=== PATIENT | male | born 1930 | race Caucasian/White ===

== ENCOUNTER → 2018-01-28 | Outpatient (REF) | payer MEDICARE | LOC: M LAB REF 14:26 | DX: C44.1122 Basal cell carcinoma of skin of right lower eyelid, including canthus (principal) | CPT/HCPCS: 88305 ==

== ENCOUNTER 2018-03-07 06:04 | Day surgery (SDC) | payer MEDICARE ==
[~2018-03-07 06:04] MED LIST: LR 1,000 ML IV
[2018-03-07] MEDS ORDERED: PROPOFOL 200 MG/20 ML VIAL As Ordered (07:21)
[2018-03-07] MEDS ORDERED: fentaNYL 100 MCG/2 ML INJECTION (J3010) As Ordered (07:22)
[2018-03-07] MEDS ORDERED: MIDAZOLAM INJ 2 MG/2 ML VIAL (J2250) As Ordered (07:22)
[2018-03-07] MEDS ORDERED: ceFAZolin 1GM INJ (J0690 PER 500MG) As Ordered ×2 (07:29→07:30)
[2018-03-07] MEDS: ceFAZolin SOD 1 GM in D5W MINI-BAG PLUS 50 ML IV (07:41)
[2018-03-07] MEDS ORDERED: LIDOCAINE 2% INJ 100 MG/5 ML SDV (FOR ANES.) As Ordered (07:50)
[2018-03-07] MEDS: LIDOCAINE 2% W/EPIN INJ 20ML **PRES FREE As Ordered (07:52)
[2018-03-07] MEDS: BACITRACIN OINT 30GM As Ordered ×2 (08:17→08:18)
[2018-03-07] MEDS: LIDOCAINE W/EPINEPHRINE 1% 20ML VIAL As Ordered (08:17)
[2018-03-07] MEDS: LIDOCAINE 2% JELLY 30 ML As Ordered (08:17)
[2018-03-07] MEDS: CORTISPORIN OPHTH OINT 3.5 GM As Ordered (08:19)
[2018-03-07] MEDS ORDERED: ONDANSETRON 4MG/2ML VIAL (J2405) As Ordered (08:44)
[2018-03-07] MEDS ORDERED: dexameTHASONE 4 MG/ML 1ML VIAL (J1100) As Ordered (08:45)
[2018-03-07] MEDS ORDERED: ACETAMINOPHEN 325 MG TAB As Ordered (09:26)
[2018-03-07] MEDS: ACETAMINOPHEN TAB 650MG DOSE (2X325MG) PO (09:30)
== END 2018-03-07 09:53 | disposition home or self-care (01) ==
LOC: M SDC 06:04
DX: L87.2 Elastosis perforans serpiginosa (principal); K44.9 Diaphragmatic hernia without obstruction or gangrene; K21.9 Gastro-esophageal reflux disease without esophagitis; D64.9 Anemia, unspecified; M12.9 Arthropathy, unspecified; F41.9 Anxiety disorder, unspecified; F32.9 Major depressive disorder, single episode, unspecified; N40.0 Benign prostatic hyperplasia without lower urinary tract symptoms; Z79.899 Other long term (current) drug therapy; Z87.891 Personal history of nicotine dependence
CPT/HCPCS: 11441

== ENCOUNTER 2020-06-29 17:15 | Emergency (ER) | payer MEDICARE ==
[~2020-06-29] VITALS: Ht 172.7 cm; Wt 60.0 kg
[~2020-06-29 17:15] MED LIST changes: +AMBI12.52 PO; +CLAR10CA3 PO; +FERR325T82 PO; +FLOM0.4C39 PO; +LORTTAB5 PO; -LR 1,000 ML IV; +NEXI1CAP3 PO; +OMEP1CAP73 PO; +PRIL20CA9 PO; +TYLE325T5 PO
[2020-06-29] MEDS ORDERED: NS 1,000 ML IV ONE (17:45)
[2020-06-29 18:43] LABS: BASO % 0.1 % (0.0-1.0); EOS % 0.1 % (0.0-3.0); HEMATOCRIT 35.5 % (42.0-52.0); HEMOGLOBIN 11.2 g/dl (13.5-17.5); LYMPH % 9.3 % (24.0-44.0); MEAN CORPUSCULAR HEMOGLOBIN 26.5 pg (27.0-33.0); MEAN CORPUSCULAR HGB CONC 31.5 g/dl (32.0-36.5); MEAN CORPUSCULAR VOLUME 84.1 fl (80.0-96.0); MONO # 0.5 10^3/uL (0.0-0.8); MONO % 4.9 % (2.0-8.0); NEUTROPHILS # 8.8 10^3/uL (1.5-8.5); NEUTROPHILS % 85.2 % (36.0-66.0); PLATELET COUNT, AUTOMATED 324 10^3/uL (150-450); RED BLOOD COUNT 4.22 10^6/uL (4.30-6.10); WHITE BLOOD COUNT 10.3 10^3/uL (4.0-10.0)
[2020-06-29 19:05] LABS: ALBUMIN 2.8 GM/DL (3.2-5.2); BILIRUBIN,TOTAL 0.4 MG/DL (0.2-1.0); CALCIUM LEVEL 8.7 MG/DL (8.8-10.2); CREATININE FOR GFR 1.23 MG/DL (0.70-1.30); GLOMERULAR FILTRATION RATE 59.1 (>35); MAGNESIUM LEVEL 1.9 MG/DL (1.8-2.4); TOTAL PROTEIN 6.5 GM/DL (6.4-8.2)
[2020-06-29] MEDS ORDERED: NS 500 ML IV ONE (19:25)
[2020-06-29 20:30] VITALS: BP 144/78
== END 2020-06-29 21:14 | disposition home or self-care (01) ==
LOC: M ED 17:15
DX: R33.9 Retention of urine, unspecified (principal); R19.5 Other fecal abnormalities; K21.9 Gastro-esophageal reflux disease without esophagitis; N40.1 Benign prostatic hyperplasia with lower urinary tract symptoms; Z86.16 Personal history of COVID-19; Z87.891 Personal history of nicotine dependence; Z79.899 Other long term (current) drug therapy

== ENCOUNTER 2020-07-04 13:11 | Emergency (ER) | payer MEDICARE ==
[~2020-07-04] VITALS: Ht 170.2 cm; Wt 62.7 kg
--- NOTE | 2020-07-04 14:32 | REP ---
INDICATION: SOB. COMPARISON: None. TECHNIQUE: Upright AP and lateral chest. FINDINGS: There are no focal infiltrates. There are no pleural effusions. There are no masses or nodules. There is mild bilateral diffuse interstitial coarsening. In the absence of comparison studies this could be acute, chronic or combination. Cardiac size appears enlarged, however, this could be artifact from AP positioning and slight patient rotation. I suspect there is a large fixed hiatal hernia. Upon review of the abdomen/pelvis CT dated 04/21/2012 there was a large fixed hiatal hernia. IMPRESSION: Mild bilateral diffuse interstitial coarsening. In the absence of comparison studies this could be acute, chronic or combination. No focal infiltrates. No nodules or masses. Large fixed hiatal hernia. <Electronically signed by Pierce Arnold > 07/04/20 [id number]
[2020-07-04 14:57] LABS: BASO % 0.3 % (0.0-1.0); EOS % 0.1 % (0.0-3.0); HEMATOCRIT 34.9 % (42.0-52.0); HEMOGLOBIN 11.2 g/dl (13.5-17.5); LYMPH # 1.1 10^3/uL (1.5-5.0); LYMPH % 8.2 % (24.0-44.0); MEAN CORPUSCULAR HEMOGLOBIN 27.2 pg (27.0-33.0); MEAN CORPUSCULAR HGB CONC 32.1 g/dl (32.0-36.5); MEAN CORPUSCULAR VOLUME 84.7 fl (80.0-96.0); MONO # 0.8 10^3/uL (0.0-0.8); MONO % 5.8 % (2.0-8.0); NEUTROPHILS # 11.5 10^3/uL (1.5-8.5); NEUTROPHILS % 85.1 % (36.0-66.0); PLATELET COUNT, AUTOMATED 330 10^3/uL (150-450); RED BLOOD COUNT 4.12 10^6/uL (4.30-6.10); WHITE BLOOD COUNT 13.5 10^3/uL (4.0-10.0)
[2020-07-04] MEDS ORDERED: NS 500 ML IV ONE (15:05)
[2020-07-04 15:22] LABS: ALBUMIN 2.9 GM/DL (3.2-5.2); ALT/SGPT 13 U/L (12-78); BILIRUBIN,DIRECT 0.2 MG/DL (0.0-0.2); BILIRUBIN,TOTAL 0.5 MG/DL (0.2-1.0); CK-MB VALUE MASS 1.1 NG/ML (<3.6); CPK CREATINE PHOSPHOKINASE 57 U/L (39-308); MB/CK RELATIVE INDEX 1.93 (< OR =4); TOTAL PROTEIN 6.2 GM/DL (6.4-8.2); TROPONIN I < 0.02 NG/ML (< 0.10)
[2020-07-04 15:35] LABS: RSV AMPLIFICATION NEGATIVE (NEGATIVE)
[2020-07-04] MEDS ORDERED: ISOVUE-370 76% 100ML VIAL As Ordered ONE (15:37)
--- NOTE | 2020-07-04 16:31 | REP ---
INDICATION: abdominal pain. COMPARISON: 04/21/2012 TECHNIQUE: CT of the abdomen and pelvis with IV contrast, without bowel contrast FINDINGS: The right inguinal hernia containing a loop of bowel on the prior study is no longer present. The patient reportedly has had an interim herniorrhaphy. The visualized lower lung hansen are unremarkable except for a large fixed hiatal hernia. This is unchanged. The hepatic parenchyma, gallbladder, pancreas and spleen are normal size and unremarkable. The adrenals are unremarkable. There is a 4.8 cm right renal cyst. This measures 3.3 cm previously. The left kidney is unremarkable. There is no hydronephrosis on the right or the left. The abdominal aorta is unremarkable. There is no periaortic adenopathy or mass. There is no bowel distention or obstruction. The previous small bowel obstruction is no longer present. Is no ascites. The mesentery is unremarkable. Pelvis: The appendix is unremarkable. The prostate is significantly enlarged. There is a catheter traversing the prostate terminating in the bladder. The distal tip of the catheter is immediately against the bladder wall superolaterally on the left and has questionably perforated versus distorted the bladder wall. The bladder wall appears diffusely thickened. There is no free fluid in the pelvis. There are sigmoid colon and ascending colon diverticula. There is no CT evidence of acute diverticulitis. 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 IMPRESSION: Of there is a bladder catheter. The tip of the catheter (against the bladder wall superolaterally on the left and indents the wall. It does not appear to have perforated the bladder wall at this time. There is no free fluid in the pelvis. The prostate is significantly enlarged. There are diverticula in the ascending colon and sigmoid colon without CT evidence of diverticulitis. The previous right inguinal hernia has been repaired with herniorrhaphy. There is no bowel distention or obstruction. There is a right renal cyst that has increased in size. <Electronically signed by Pierce Arnold > 07/04/20 [id number]
--- NOTE | 2020-07-04 16:56 | ECGEPIP ---
[facility] - ED Test Date: 2020-07-04 Pat Name: STEVEN MALCOLM Department: Room: - Gender: Male Head Teller: PREM : 1930 Requested By: KADE Gonzalez PA-C Order Number: [id number] Reading MD: Roland Hall Measurements Intervals [place] Rate: 94 P: 76 OR: 198 QRS: 29 QRSD: 90 T: 16 QT: 390 QTc: 487 Interpretive Statements Normal sinus rhythm Nonspecific ST and T wave abnormality Baseline artifact Comparison tracing not on file Electronically Signed on 07-04-2020 16:55:37 EDT by Roland Hall
[2020-07-04] MEDS ORDERED: DITR5TAB PO (17:02)
[2020-07-04] MEDS ORDERED: CEPH500C PO (17:04)
[2020-07-04] MEDS ORDERED: CEPHALEXIN 500 MG CAP PO ONE (17:10)
[2020-07-04] MEDS ORDERED: oxyBUTYnin *DITROPAN XL* 5 MG TABCR PO SCH (17:25)
[2020-07-04 17:31] VITALS: BP 157/73
[2020-07-05] MEDS ORDERED: oxyBUTYnin *DITROPAN XL* 5 MG TABCR PO SCH (09:00)
== END 2020-07-04 17:52 | disposition home or self-care (01) ==
LOC: M ED 13:11
DX: N40.1 Benign prostatic hyperplasia with lower urinary tract symptoms (principal); T83.511A Infection and inflammatory reaction due to indwelling urethral catheter, initial encounter; R06.02 Shortness of breath; K62.5 Hemorrhage of anus and rectum; K44.9 Diaphragmatic hernia without obstruction or gangrene; F41.9 Anxiety disorder, unspecified; F32.9 Major depressive disorder, single episode, unspecified; Z87.19 Personal history of other diseases of the digestive system; Z85.828 Personal history of other malignant neoplasm of skin; Z79.899 Other long term (current) drug therapy
CPT/HCPCS: 71046; 74177; 80047; 80076; 81001; 82550; 82553; 84484; 85025; 87088; 87186; 87631; 93005; 96360; 99284; Q9967

== ENCOUNTER → 2020-07-31 | Outpatient (REF) | payer MEDICARE ==
[~2020-07-31] MED LIST changes: +CEPH500C PO; +DITR5TAB PO
[2020-07-31 17:08] LABS: APPEARANCE, URINE TURBID (CLEAR); BACTERIA, URINE AUTO 2+ (NEGATIVE); BILIRUBIN, URINE AUTO NEGATIVE (NEGATIVE); BLOOD, URINE BLOOD 1+ (NEGATIVE); COLOR, URINE YELLOW (YELLOW); GLUCOSE, URINE (UA) AUTO NEGATIVE (NEGATIVE); KETONE, URINE AUTO NEGATIVE (NEGATIVE); LEUKOCYTE ESTERASE, URINE AUTO 3+ (NEGATIVE); NITRITE, URINE AUTO NEGATIVE (NEGATIVE); PROTEIN, URINE AUTO 2+ mg/dL (NEGATIVE); RBC, URINE AUTO 2 /HPF (0-3); SPECIFIC GRAVITY URINE AUTO 1.013 (1.002-1.035); SQUAMOUS EPITHELIAL CELL UR AU 0 /HPF (0-6); UROBILINOGEN, URINE AUTO 0.2 mg/dL (0.0-2.0); WBC, URINE AUTO TNTC /HPF (0-3)
== END ==
LOC: M SFHCCLAY 12:24
PROVIDERS: ATTEND Nurse Practitioner Family
DX: R30.0 Dysuria (principal); N40.1 Benign prostatic hyperplasia with lower urinary tract symptoms
CPT/HCPCS: 51798; 81001; 84153; G0463

== ENCOUNTER → 2020-08-05 | Outpatient (REF) | payer MEDICARE | LOC: M SMT 15:41 | PROVIDERS: ATTEND Nurse Practitioner Family | DX: R30.0 Dysuria (principal) ==

== ENCOUNTER → 2020-11-06 | Outpatient (REF) | payer MEDICARE, OTHER ==
[~2020-11-06] MED LIST changes: +META28.32 PO; +PRES10CA2 PO; +TRAM50TA2 PO; +ZOLP10TA2 PO
[2020-11-08 23:08] LABS: PSA % FREE 18.3 % (.); PSA FREE 1.68 ng/mL; PSA TOTAL 9.2 ng/mL (0.0-4.0)
== END ==
LOC: M SFHCCLAY 13:20
PROVIDERS: ATTEND Nurse Practitioner Family
DX: R97.20 Elevated prostate specific antigen [PSA] (principal); N39.0 Urinary tract infection, site not specified
CPT/HCPCS: 51798; 84154; 87086; G0463

== ENCOUNTER → 2020-11-06 | Outpatient (REF) | payer MEDICARE, OTHER | LOC: M SMT 13:13 | PROVIDERS: ATTEND Nurse Practitioner Family | DX: N39.0 Urinary tract infection, site not specified (principal) ==

== ENCOUNTER 2020-11-19 10:47 | Inpatient (IN) | payer MEDICARE, OTHER ==
[~2020-11-19] VITALS: Ht 172.7 cm; Wt 48.9 kg
[~2020-11-19 10:47] MED LIST changes: -META28.32 PO; -PRES10CA2 PO; -TRAM50TA2 PO; -ZOLP10TA2 PO
[2020-11-19 11:58] LABS: HEMATOCRIT 31.8 % (42.0-52.0); HEMOGLOBIN 10.2 g/dl (13.5-17.5); MEAN CORPUSCULAR HEMOGLOBIN 24.6 pg (27.0-33.0); MEAN CORPUSCULAR HGB CONC 32.1 g/dl (32.0-36.5); MEAN CORPUSCULAR VOLUME 76.6 fl (80.0-96.0); PLATELET COUNT, AUTOMATED 415 10^3/uL (150-450); RED BLOOD COUNT 4.15 10^6/uL (4.30-6.10); WHITE BLOOD COUNT 22.9 10^3/uL (4.0-10.0)
[2020-11-19] MEDS ORDERED: ONDANSETRON 4MG/2ML VIAL IV ONE (12:05)
[2020-11-19 12:24] LABS: BLOOD UREA NITROGEN 30 MG/DL (7-18); CALCIUM LEVEL 8.3 MG/DL (8.8-10.2); CARBON DIOXIDE LEVEL 26 MEQ/L (21-32); CHLORIDE LEVEL 102 MEQ/L (98-107); CREATININE FOR GFR 1.08 MG/DL (0.70-1.30); GLOMERULAR FILTRATION RATE > 60.0 (>35); GLUCOSE, FASTING 113 MG/DL (70-100); LYMPHOCYTES 3 % (16-44); MONOCYTES 1 % (0-5); NEUTROPHILS 86 % (28-66); POTASSIUM SERUM 3.1 MEQ/L (3.5-5.1); SODIUM LEVEL 140 MEQ/L (136-145)
[2020-11-19 12:25] LABS: OVALOCYTES 1+; PLATELET CLUMPS SMALL AMT; PLATELET ESTIMATE NORMAL (NORMAL)
[2020-11-19] MEDS ORDERED: ISOVUE-370 76% 100ML VIAL As Ordered ONE (12:37)
--- NOTE | 2020-11-19 14:05 | REP ---
INDICATION: SBO. COMPARISON: 07/04/2020. TECHNIQUE: Portable AP chest with the patient upright, single view. FINDINGS: There is diffuse bilateral interstitial coarsening, similar to the prior study. However, I suspect a superimposed focal infiltrate inferiorly in the left lung as an interval change. There are no pleural effusions. Cardiac size is upper normal. There is a large fixed hiatal hernia containing bowel loops, artifactually accentuating cardiac size. There appear to be air-filled dilated bowel loops in the visualized upper abdomen. The bowel loops within the hiatal hernia also appear to be dilated. This could represent ileus or obstruction. IMPRESSION: Probable acute infiltrate inferiorly in the left lung. Chronic diffuse bilateral interstitial coarsening. Dilated air-filled bowel loops in the upper abdomen, possibly ileus or obstruction. Large fixed hiatal hernia, unchanged, artifactually accentuating cardiac size. The bowel loops within the hiatal hernia appear to be dilated. There are also dilated air-filled bowel loops in the visualized upper abdomen. This could represent ileus or obstruction. <Electronically signed by Pierce Arnold > 11/19/20 [id number]
[2020-11-19 14:11] LABS: RSV AMPLIFICATION NEGATIVE (NEGATIVE)
--- NOTE | 2020-11-19 14:35 | REP ---
INDICATION: SBO. COMPARISON: 07/04/2020 the latest prior TECHNIQUE: Standard helical technique after the intravenous administration of 100 cc Isovue 370 FINDINGS: There is significant respiratory motion artifact obscuring the lung base detail. Patchy airspace opacities cannot be ruled out. Since the last exam multiple dilated gas and fluid-filled small and large bowel loops have developed. A 4 by 4.5 cm sized masslike density has developed in the left lower quadrant between 2 large bowel loops. There is a large and in fact huge hiatal hernia which is occupied by both stomach and small bowel. The liver, spleen, gallbladder, pancreas, adrenal glands, and kidneys are unchanged. The abdominal aorta and para-aortic regions are unchanged. There is no evidence of free fluid or free air. There is massive prostatomegaly status quo. There is no significant change in the osseous structures. IMPRESSION: 1. There is a bowel obstruction which may be secondary to a colo colic intussusception. 2. Massive prostatomegaly. 3. Huge hiatal hernia. 4. Stable right renal cyst. 5. Limited evaluation of the lung bases as described above. <Electronically signed by Cristopher Henson > 11/19/20 [id number]
[2020-11-19] MEDS ORDERED: PIPERACILLIN/TAZOBACTAM SOD 3.375 GM in D5W MINI-BAG PLUS 50 ML IV ONE (15:00)
[2020-11-19] MEDS ORDERED: NS 1,000 ML IV ONE (15:35)
[2020-11-19] MEDS ORDERED: KCL 10MEQ/100ML SWI (KRUN) 10 MEQ in IV 1 EA IV ONE (16:00)
--- NOTE | 2020-11-19 16:01 | REP ---
INDICATION: NG TUBE PLACEMENT. COMPARISON: 11/19/2020, 12:06 p.m. TECHNIQUE: Single portable AP view of the chest was performed. FINDINGS: Reason for exam given is NG tube placement. No NG tube is visualized. EKG leads overlie the chest as on prior study. The heart and mediastinum are unchanged. The lung hansen are unchanged.Dilated small bowel loops are seen in the upper abdomen, extending into a hiatal hernia. IMPRESSION: Stable exam.No NG tube seen. <Electronically signed by Pierce Brown > 11/19/20 [id number]
--- NOTE | 2020-11-19 16:25 | HPEPDOC ---
[facility] Medical History & Physical Date of Admission Nov 19, 2020 Date of Service: Nov 19, 2020 History and Physical CHIEF COMPLAINT: abdominal pain for one year on and off HISTORY OF PRESENT ILLNESS: 89 y/o DNR DNI w h/o BPH, urine retention, constipation, diverticular disease, skin ca, colon surgery 04/2012, hernia repair 1999 has been evaluated by General Surgeon, Dr. Nicolas, as outpt and treated for constipation with metamucil and activia has been having on and off abd pain from the epigastrium to suprapubic area described as "jamming pain," usually abates, worsened last Wednesday when he had decreased appetite per his daughter. Yesterday morning, pt had nausea and vomiting with brownish material w/o fever or chills. He noticed increasing abdominal distention overnight with no flatus, and worsening generalized dull pain all over the abdomen. His Daughter calls every morning, and when he did not answer, she came over and found him in bed not feeling well. He also c/o congestion and has been taking sudafed for cough. If the abd pain did not get better, Dr. Nicolas was planning on doing a colonoscopy in January. In the ER, pt had a wbc 22, normal lactic acid 1.7, but ct abd/pelvis: ?intussussception. diverticulitis. Surgeon hydroponics grower, Dr. Barlow reviewed the CT with Dr. Nicolas, and will decide if pt needs to go to surgery or conservative mgt with NG tube, npo, iv zosyn, and ivfluids. ER MD, Dr. Lane has given the patient one dose of IV zosyn 3.375 mg x 1. PAST MEDICAL HISTORY/ SURGICAL HISTORY: BPH, urine retention, constipation, diverticular disease, skin ca, colon surgery 04/2012, hernia repair 1999 SOCIAL HISTORY: lives alone, dnr/dni. [facility] [phone] previous smoker <1/2 pack on and off, quit >50years ago. 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 REVIEW OF SYSTEMS: 10 pt ros negative aside from + findings on HPI HOME MEDICATIONS: Please see below. PHYSICAL EXAMINATION: VITAL SIGNS: see below GENERAL APPEARANCE: aaox 3 no distress cachectic HEENT: no jvd dry mm perrl no carotid bruit CARDIOVASCULAR:S1S2 RRR LUNGS:CTAB AEBE no w/r/r ABDOMEN: distended tympanitic hypoactive bowel sounds LLQ tender no rebound no guarding EXTREMITIES:no pitting edema, cyanosis, or clubbing LABORATORY DATA: See below. IMAGING: see below MICROBIOLOGY: Please see below. ASSESSMENT:89y/o M DNR/DNI admitted for abd pain: Diverticulitis: npo, ivf, iv zosyn x 7days renally dosed. hypoglycemic protocol general surgeon Dr. Barlow consulted. normal lactic acid sigmoidoscopy in am if no plans for or tonight. BPH / Urine retention hold meds for now while npo resume meds once po intake resumed gottlieb cath check ua urine c&s constipation defer to surgery for bowel prep Diet: npo dvt prophylaxis: compression stockings activity: as tolerated Code status: DNR/DNI Vital Signs Vital Signs Date Time Temp Pulse Resp B/P (MAP) Pulse Ox O2 Delivery O2 Flow Rate FiO2 11/19/20 11:00 98.6 90 22 127/67 Room Air Laboratory Data Labs 24H Laboratory Tests 2 11/19/20 11:32: Neutrophils (%) (Auto) , Nucleated Red Blood Cells % (auto) 0.0, Neutrophils 86H, Band Neutrophils 10, Lymphocytes (Manual) 3L, Monocytes (Manual) 1, Ovalocytes 1+, Platelet Estimate NORMAL, Clumped Platelets SMALL AMT, Anion Gap 12, Glomerular Filtration Rate > 60.0, Calcium Level 8.3L 11/19/20 13:28: Coronavirus (COVID-19)(PCR) NEGATIVE, Influenza Type A (RT-PCR) NEGATIVE, Infl uenza Type B (RT-PCR) NEGATIVE, Respiratory Syncytial Virus (PCR) NEGATIVE CBC/BMP Laboratory Tests 11/19/20 11:32 Home Medications Scheduled Ferrous Sulfate (Iron) 325 Mg Tab, 325 MG PO DAILY Omeprazole (Omeprazole) 20 Mg Cap, 20 MG PO DAILY Oxybutynin Chloride (Ditropan Xl) 5 Mg Tab.er.24, 1 TAB PO BID Tamsulosin HCl (Flomax) 0.4 Mg Cap, 0.4 MG PO DAILY Scheduled PRN Loratadine (Claritin) 10 Mg Cap, 10 MG PO PRN PRN for CONGESTION Allergies Coded Allergies: No Known Allergies (Unverified , 06/29/20) A-FIB/CHADSVASC A-FIB History Current/History of A-Fib/PAF?: No Current PO Anticoag Therapy: No Age/Risk Factor Scoring CHADSVASC: CHADSVASC Response (Comments) Value Age Risk Factor Age >/= 75 years old 2 Gender Risk Factor Male 0 Hx of CHF No 0 Hx of HTN No 0 Hx of Stroke/TIA/or VTE No 0 Hx of Diabetes No 0 Hx of Vascular Disease No 0 Total 2 Treatment Treatment ordered: NONE WILL REYNA MD Nov 19, 2020 16:25
[2020-11-19] MEDS ORDERED: GLUCAGON INJ 1MG VIAL SC PRN (16:30)
[2020-11-19] MEDS ORDERED: GLUCOSE 4GM CHEW TABLET PO PRN (16:30)
[2020-11-19] MEDS ORDERED: DEXTROSE 50% 50 ML SYRINGE IV PRN (16:30)
[2020-11-19] MEDS ORDERED: ONDANSETRON 4MG/2ML VIAL IV PRN (16:30)
[2020-11-19] MEDS ORDERED: TRAM50TA2 PO (16:43)
[2020-11-19] MEDS ORDERED: META28.32 PO (16:43)
[2020-11-19] MEDS ORDERED: ZOLP10TA2 PO (16:43)
[2020-11-19] MEDS ORDERED: PRES10CA2 PO (16:43)
[2020-11-19] MEDS ORDERED: HOME MED LIST COMPLETE! XX SCH (16:45)
[2020-11-19 18:37] VITALS: BP 132/63
--- NOTE | 2020-11-19 19:06 | REP ---
INDICATION: pOST ng TUBE PLACEMENT. COMPARISON: Portable chest performed at 3:37 p.m. earlier today. TECHNIQUE: Portable AP chest with the patient sitting post NG tube placement. FINDINGS: There is a nasogastric tube looped within bowel loops in the large fixed hiatal hernia with the distal tip extending just to and possibly slightly below the esophagogastric junction. Dilated bowel loops are again noted in the upper abdomen and in the hiatal hernia. Diffuse interstitial chronic coarsening of the lung hansen is again noted. Possible focal infiltrate inferiorly in the left lung again noted. IMPRESSION: NG tube as described. Other findings as described. <Electronically signed by Pierce Arnold > 11/19/20 [id number]
[2020-11-19 20:00] VITALS: BP 122/56
[2020-11-19] MEDS: PIPERACILLIN/TAZOBACTAM SOD 3.375 GM in D5W MINI-BAG PLUS 50 ML IV SCH (20:32)
[2020-11-19] MEDS: PANTOPRAZOLE 40MG VIAL (C9113 PER 1) IV SCH (20:33)
[2020-11-19] MEDS: KCL 40MEQ IN D5/0.45NS 1000ML 1,000 ML IV SCH (20:34)
[2020-11-19] MEDS ORDERED: LORazepam 2 MG/ML VIAL IV ONE (21:35)
--- NOTE | 2020-11-19 21:56 | ECGEPIP ---
[facility] - ED Test Date: 2020-11-19 Pat Name: STEVEN MALCOLM Department: Room: - Gender: Male Retail Sales Consultant: ancelmo : 1930 Requested By: Justice Ulloa Order Number: [id number] Reading MD: Justice Lane Measurements Intervals [place] Rate: 89 P: 51 HI: 162 QRS: 7 QRSD: 100 T: 257 QT: 448 QTc: 545 Interpretive Statements Sinus rhythm with premature atrial complexes ST & T wave abnormality, consider inferior ischemia ST & T wave abnormality, consider anterolateral ischemia Prolonged QT Electronically Signed on 11-19-2020 21:56:[address]
[2020-11-20] VITALS (7 sets, daily range): BP systolic 114–143; BP diastolic 56–72
[2020-11-20] MEDS: PIPERACILLIN/TAZOBACTAM SOD 3.375 GM in D5W MINI-BAG PLUS 50 ML IV SCH ×4 (02:50→21:47)
[2020-11-20 05:50] LABS: BASO % 0.1 % (0.0-1.0); EOS % 0.1 % (0.0-3.0); HEMATOCRIT 28.2 % (42.0-52.0); HEMOGLOBIN 8.9 g/dl (13.5-17.5); LYMPH # 1.2 10^3/uL (1.5-5.0); LYMPH % 12.1 % (24.0-44.0); MEAN CORPUSCULAR HEMOGLOBIN 24.5 pg (27.0-33.0); MEAN CORPUSCULAR HGB CONC 31.6 g/dl (32.0-36.5); MEAN CORPUSCULAR VOLUME 77.5 fl (80.0-96.0); MONO # 0.6 10^3/uL (0.0-0.8); MONO % 5.7 % (2.0-8.0); NEUTROPHILS # 8.3 10^3/uL (1.5-8.5); NEUTROPHILS % 81.6 % (36.0-66.0); PLATELET COUNT, AUTOMATED 341 10^3/uL (150-450); RED BLOOD COUNT 3.64 10^6/uL (4.30-6.10); WHITE BLOOD COUNT 10.2 10^3/uL (4.0-10.0)
[2020-11-20 06:10] LABS: BLOOD UREA NITROGEN 30 MG/DL (7-18); CALCIUM LEVEL 7.8 MG/DL (8.8-10.2); CARBON DIOXIDE LEVEL 27 MEQ/L (21-32); CHLORIDE LEVEL 108 MEQ/L (98-107); CREATININE FOR GFR 1.13 MG/DL (0.70-1.30); GLOMERULAR FILTRATION RATE > 60.0 (>35); GLUCOSE, FASTING 135 MG/DL (70-100); MAGNESIUM LEVEL 2.4 MG/DL (1.8-2.4); SODIUM LEVEL 142 MEQ/L (136-145)
[2020-11-20] MEDS: KCL 40MEQ IN D5/0.45NS 1000ML 1,000 ML IV SCH ×3 (06:15→23:09)
--- NOTE | 2020-11-20 08:02 | REP ---
INDICATION: cough. COMPARISON: Portable chest dated 11/19/2020. TECHNIQUE: Portable AP chest with the patient upright. FINDINGS: The nasogastric tube is unchanged in position. It is looped within bowel loops in the large fixed hiatal hernia with the tested tip just at or slightly beyond the esophagogastric junction. The dilated bowel loops in the upper abdomen and hiatal hernia identified previously have decreased in size. Chronic diffuse bilateral interstitial coarsening is unchanged. Questionable infiltrate inferiorly in the left lung is unchanged. There are new focal densities in the right mid lung, possibly small subsegmental infiltrates, as an interval change. IMPRESSION: Nasogastric tube, unchanged. The previous distended bowel loops have decreased in size. New subsegmental infiltrates in the right lung. Persisting infiltrate inferiorly in the left lung. Chronic diffuse bilateral interstitial coarsening. Large fixed hiatal hernia, unchanged. <Electronically signed by Pierce Arnold > 11/20/20 [id number]
--- NOTE | 2020-11-20 08:16 | REP ---
INDICATION: abd pain. COMPARISON: Abdomen/pelvis CT dated 11/19/2020. TECHNIQUE: Single AP view of the abdomen performed portably. FINDINGS: There is a large coffee moreno shaped loop of dilated bowel in the right lower quadrant possibly involving the ascending colon/terminal ileum compatible with volvulus/intussusception. There are dilated small bowel loops throughout the remainder of the abdomen compatible with bowel obstruction. There is opaque material filling the bladder as a consequence of the comparison CT with IV contrast. The bladder wall appears diffusely thickened. IMPRESSION: Small-bowel obstruction. Coffee moreno shaped loop of distended bowel in the right lower quadrant compatible with volvulus/intussusception likely involving the ascending colon or terminal ileum. Circumferential bladder wall thickening. <Electronically signed by Pierce Arnold > 11/20/20 [id number]
--- NOTE | 2020-11-20 08:31 | IPNPDOC ---
Text Note Date of Service The patient was seen on 11/20/20. NOTE General surgery. Dr. Barlow The patient is an 89-year-old male with history of chronic constipation, diverticular disease, right inguinal hernia repair 10/02, admitted to [facility] 11/19/2020 with diverticulitis. This morning, the patient states abdominal pain is improved, currently he is denying any abdominal pain. He had been reporting lower abdominal pain y esterday but states today he does not feel discomfort in that area. Had a bowel movement overnight. Reports some flatus. Denies nausea or vomiting. NG tube in place. T-max 100.0 at 2000 hrs. 11/19/2020. Afebrile this morning. Heart rate 79, respiratory rate 17, blood pressure 131/69, 96% 2 L nasal cannula Awake and alert resting in bed. No acute distress. NG tube in place Lungs with good air entry, no wheezing S1-S2 regular rate rhythm Abdomen still distended but the patient reports improvement, tympanic. No guarding or rebound. No tenderness with palpation this morning. WBC 10.2, this is decreased from 22.9 yesterday. Hemoglobin 8.9 Assessment/plan Diverticulitis. The patient is reviewed by Dr. Barlow this morning. Abdominal x-ray this morning reviewed. The patient reports 1 bowel movement overnight, 1 bowel movement as documented by nursing. The patient reports improvement in abdominal distention and abdominal pain. NG tube is still in place. 200 mL output documented. 450 mL since admission. Leukocytosis is significantly improved this morning. IV fluids as per hospitalist IV Zosyn Continue with n.p.o. for now, NG tube LIS. Continue to monitor. VS,Fishbone, I+O VS, Fishbone, I+O Laboratory Tests 11/19/20 11:32 11/20/20 05:31 Vital Signs Date Time Temp Pulse Resp B/P (MAP) Pulse Ox O2 Delivery O2 Flow Rate FiO2 11/20/20 07:39 96.5 63 19 143/70 (94) 89 Nasal Cannula 2.0 I&O- Last 24 Hours up to 6 AM 11/20/20 06:00 Intake Total 1500 ml Output Total 525 ml Balance 975 ml Anitha Prakash Nov 20, 2020 08:31
[2020-11-20] MEDS: PANTOPRAZOLE 40MG VIAL (C9113 PER 1) IV SCH ×2 (08:43→21:47)
[2020-11-20] MEDS: KCL 10MEQ/100ML SWI (KRUN) 10 MEQ in IV 1 EA IV SCH ×4 (08:43→12:31)
--- NOTE | 2020-11-20 09:23 | IPNPDOC ---
Date Seen The patient was seen on 11/20/20. Progress Note SUBJECTIVE: Patient had a bowel movement small amount of brownish material NG tube continues to have brownish discharge. Patient says his pain is 2 out of 10 on a pain scale Significantly improved. Nasogastric tube in place no fever chills overnight. Denies any nausea vomiting this morning. PHYSICAL EXAMINATION: VITAL SIGNS: see below GENERAL APPEARANCE: aaox 3 no distress cachectic no pallor or icterus HEENT: Edentulous dry mm perrl no carotid bruit NG tube CARDIOVASCULAR:S1S2 RRR no JVD LUNGS:CTAB AEBE no w/r/r ABDOMEN: Less distended no fluid wave hypoactive bowel sounds slight LLQ tender no rebound no guarding EXTREMITIES:no pitting edema, cyanosis, or clubbing LABORATORY DATA: See below. IMAGING: see below MICROBIOLOGY: Please see below. ASSESSMENT:89y/o M DNR/DNI admitted for abd pain: Questionable bowel obstruction/intussusception: Per general surgery, patient does not require any surgical intervention at this time. He has had a bowel movement this morning. Repeat abdominal x-ray shows bowel obstruction and intussusception/volvulus Defer to surgery for any procedures or surgical intervention Keep the patient n.p.o. continue IV fluids hypoglycemic protocol intravenous Zosyn day 2 Diverticulitis: npo, ivf, iv zosyn x 7days renally dosed. hypoglycemic protocol general surgeon Dr. Barlow consulted. normal lactic acid Possible sigmoidoscopy BPH / Urine retention hold meds for now while npo resume meds once po intake resumed gottlieb cath constipation defer to surgery for bowel prep if recommended Diet: npo dvt prophylaxis: compression stockings activity: as tolerated Code status: DNR/DNI VS, I&O, 24H, Fishbone Vital Signs/I&O Vital Signs Date Time Temp Pulse Resp B/P (MAP) Pulse Ox O2 Delivery O2 Flow Rate FiO2 11/20/20 07:39 96.5 63 19 143/70 (94) 89 Nasal Cannula 2.0 I&O- Last 24 Hours up to 6 AM 11/20/20 06:00 Intake Total 1500 ml Output Total 525 ml Balance 975 ml Laboratory Data 24H LABS Laboratory Tests 2 11/19/20 11:32: Neutrophils (%) (Auto) , Nucleated Red Blood Cells % (auto) 0.0, Neutrophils 86H, Band Neutrophils 10, Lymphocytes (Manual) 3L, Monocytes (Manual) 1, Ovalocy [place] 1+, Platelet Estimate NORMAL, Clumped Platelets SMALL AMT, Anion Gap 12, Glomerular Filtration Rate > 60.0, Calcium Level 8.3L 11/19/20 13:28: Coronavirus (COVID-19)(PCR) NEGATIVE, Influenza Type A (RT-PCR) NEGATIVE, Influenza Type B (RT-PCR) NEGATIVE, Respiratory Syncytial Virus (PCR) NEGATIVE 11/19/20 15:26: POC Lactate (Misc Panel) 0.79 11/20/20 05:31: Neutrophils (%) (Auto) 81.6H, Nucleated Red Blood Cells % (auto) 0.0, Anion Gap 7L, Glomerular Filtration Rate > 60.0, Calcium Level 7.8L, Immature Granulocyte % (Auto) 0.4, Lymphocytes (%) (Auto) 12.1L, Monocytes (%) (Auto) 5.7, Eosinophils (%) (Auto) 0.1, Basophils (%) (Auto) 0.1, Neutrophils # (Auto) 8.3, Lymphocytes # (Auto) 1.2L, Monocytes # (Auto) 0.6, Eosinophils # (Auto) 0.0, Basophils # (Auto) 0.0, Magnesium Level 2.4 CBC/BMP Laboratory Tests 11/19/20 11:32 11/20/20 05:31 WILL REYNA MD Nov 20, 2020 09:23
[2020-11-20] MEDS ORDERED: CHLORASEPTIC SPRAY MT PRN (10:00)
[2020-11-20] MEDS: BISACODYL 10 MG SUPP PR SCH ×2 (10:47→21:47)
--- NOTE | 2020-11-20 12:59 | CR ---
CONSULTATION DATE: 11/19/2020 CHIEF COMPLAINT: Abdominal pain. HISTORY OF PRESENT ILLNESS: Patient is an 89-year-old male who presents with a history of abdominal distention, lower abdominal pains, and nausea. He came into the emergency room because of the symptoms and was found to have an elevated white count of 22 as well as questionable intussusception on a CT scan. He has had this on and off lower abdominal pain for over a year now. He has been treated outpatient for constipation and was discussing a possible outpatient colonoscopy if his pain did not improve. He did note that a few weeks ago he did have a urinary tract infection (UTI) and was placed on antibiotics for a couple weeks. During that time his abdominal pain went away. His bowel movements returned back to normal. As soon as he went off the antibiotics his symptoms returned. Currently he denies any nausea or vomiting. His abdominal pain is present but tolerable. His main complaint for when he came into the hospital today was coffee-ground emesis. MEDICAL HISTORY: 1. BPH. 2. Urinary retention. 3. Constipation. 4. Diverticulosis. 5. Skin cancer. SURGICAL HISTORY: 1. Colon surgery. 2. Hernia repair. SOCIAL HISTORY: Denies drug, alcohol, tobacco abuse. FAMILY HISTORY: Noncontributory. ALLERGIES: None. HOME MEDICATIONS: Please see [facility]. REVIEW OF SYSTEMS: Pertinent positives and negatives as stated in history of present illness. PHYSICAL EXAMINATION: GENERAL: Alert and oriented (A and O) times three in no acute distress. VITAL SIGNS: Temperature 97.9, pulse 85, respirations 20, blood pressure 110/65, pulse oximetry 97% on room air. HEENT: Pupils equally round and reactive to light and accommodation. HEART: S1, S2, regular rate and rhythm. LUNGS: Clear to auscultation bilaterally. ABDOMEN: Soft, tender to palpation, lower left quadrant only, minimally. No rebound or guarding. Slight distention. EXTREMITIES: No clubbing, cyanosis, or edema. LABORATORY DATA: White count 22.9, hemoglobin 10.2, platelets 415. Potassium 3.1, creatinine 1.08. IMAGING DATA: CT abdomen and pelvis shows bowel obstruction secondary to colonic intussusception, massive prostatomegaly, huge hiatal hernia, stable right renal cyst. ASSESSMENT AND PLAN: Patient, again, is an 89-year-old male with large bowel obstruction, likely secondary to chronic diverticulitis. It sounds as though his symptoms improved with antibiotics a few weeks ago, and his bowel movements returned back to normal. At this time he is nonperitoneal. Has minimal abdominal pain at most. Plan is to monitor him closely, keep him on intravenous (IV) fluids, nothing by mouth, antibiotics, and we will place an nasogastric (NG) tube as well and re-evaluate in the morning.
[2020-11-21] MEDS: PIPERACILLIN/TAZOBACTAM SOD 3.375 GM in D5W MINI-BAG PLUS 50 ML IV SCH ×4 (03:34→20:34)
[2020-11-21] MEDS ORDERED: guaiFENesin 200 MG TAB PO PRN (04:05)
[2020-11-21 06:00] VITALS: BP 122/67
[2020-11-21 07:09] LABS: BASO % 0.1 % (0.0-1.0); EOS # 0.1 10^3/uL (0.0-0.5); EOS % 1.7 % (0.0-3.0); HEMATOCRIT 29.1 % (42.0-52.0); HEMOGLOBIN 8.8 g/dl (13.5-17.5); LYMPH # 0.9 10^3/uL (1.5-5.0); LYMPH % 13.3 % (24.0-44.0); MEAN CORPUSCULAR HGB CONC 30.2 g/dl (32.0-36.5); MEAN CORPUSCULAR VOLUME 79.3 fl (80.0-96.0); MONO # 0.4 10^3/uL (0.0-0.8); MONO % 5.7 % (2.0-8.0); NEUTROPHILS # 5.4 10^3/uL (1.5-8.5); NEUTROPHILS % 78.9 % (36.0-66.0); PLATELET COUNT, AUTOMATED 337 10^3/uL (150-450); RED BLOOD COUNT 3.67 10^6/uL (4.30-6.10); WHITE BLOOD COUNT 6.9 10^3/uL (4.0-10.0)
[2020-11-21 07:32] LABS: BLOOD UREA NITROGEN 22 MG/DL (7-18); CALCIUM LEVEL 8.1 MG/DL (8.8-10.2); CARBON DIOXIDE LEVEL 26 MEQ/L (21-32); CHLORIDE LEVEL 112 MEQ/L (98-107); CREATININE FOR GFR 1.02 MG/DL (0.70-1.30); GLOMERULAR FILTRATION RATE > 60.0 (>35); GLUCOSE, FASTING 118 MG/DL (70-100); MAGNESIUM LEVEL 2.4 MG/DL (1.8-2.4); POTASSIUM SERUM 3.7 MEQ/L (3.5-5.1); SODIUM LEVEL 143 MEQ/L (136-145)
--- NOTE | 2020-11-21 08:33 | IPNPDOC ---
Text Note Date of Service The patient was seen on 11/21/20. NOTE General surgery. Dr. Barlow The patient is an 89-year-old male with history of chronic constipation, diverticular disease, right inguinal hernia repair 10/02, admitted to [facility], [place] 11/19/2020 with diverticulitis. This morning, the patient states he is not currently having abdominal pain. 4 bowel movements documented yesterday. Reports some flatus. Denies nausea or vomiting. NG tube in place. Afebrile Heart rate 75, respiratory rate 18, blood pressure 122/67, 97% 2 L nasal cannula Awake and alert resting in bed. No acute distress. NG tube in place Lungs with good air entry, no wheezing S1-S2 regular rate rhythm Abdomen is soft but still distended. No guarding or rebound. No tenderness with palpation this morning. WBC 6.9, this is decreased from 10.2 yesterday. Hemoglobin 8.8 400 mL NG tube output documented 11/20, 200ml documented so far today. Assessment/plan Diverticulitis. The patient is reviewed by Dr. Barlow this morning. Imaging has been reviewed by Dr. Barlow. The patient had 4 documented BMs yesterday. NG tube in place, 400 mL output documented yesterday, 200 mL so far today. Leukocytosis resolved. IV fluids as per hospitalist IV Zosyn Dulcolax suppositories added twice daily yesterday. Add Miralax BID today. Continue with n.p.o. with sips, NG tube LIS. Continue to monitor. VS,Fishbone, I+O VS, Fishbone, I+O Laboratory Tests 11/21/20 06:23 Vital Signs Date Time Temp Pulse Resp B/P (MAP) Pulse Ox O2 Delivery O2 Flow Rate FiO2 11/21/20 06:00 98.4 75 18 122/67 (85) 97 Nasal Cannula 2.0 I&O- Last 24 Hours up to 6 AM 11/21/20 05:59 Intake Total 1900 ml Output Total 1325 ml Balance 575 ml Anitha Prakash Nov 21, 2020 08:33
[2020-11-21] MEDS: KCL 40MEQ IN D5/0.45NS 1000ML 1,000 ML IV SCH ×2 (09:16→17:44)
[2020-11-21] MEDS: BISACODYL 10 MG SUPP PR SCH ×2 (09:17→20:34)
[2020-11-21] MEDS: MIRALAX *UNIT DOSE* 17GM PACKET PO SCH ×2 (09:17→20:34)
[2020-11-21] MEDS: PANTOPRAZOLE 40MG VIAL (C9113 PER 1) IV SCH ×2 (09:17→20:34)
--- NOTE | 2020-11-21 13:34 | IPNPDOC ---
Date Seen The patient was seen on 11/21/20. Progress Note SUBJECTIVE: Patient is having small bowel movements and responding well to suppositories and enemas Nasogastric tube still in place Afebrile decreasing white blood cell count He denies any nausea vomiting Abdominal pain is improved Complains of congestion slight shortness of breath Using [place] for oral suctioning PHYSICAL EXAMINATION: VITAL SIGNS: see below GENERAL APPEARANCE: No distress cachectic HEENT: Edentulous dry mm no carotid bruit NG tube with yellow discharge CARDIOVASCULAR:S1S2 RRR no JVD LUNGS: Diminished AEBE no w/r/r ABDOMEN: Less distended no fluid wave hypoactive bowel sounds nontender no rebound no guarding EXTREMITIES:no pitting edema, cyanosis, or clubbing LABORATORY DATA: See below. IMAGING: see below MICROBIOLOGY: Please see below. ASSESSMENT:89y/o M DNR/DNI admitted for abd pain: Constipation/unlikely intussusception: Day #3 IV Zosyn No surgical intervention Supportive care with nasogastric tube IV fluids bowel regimen with suppositories and enemas Diverticulitis: npo, ivf, iv zosyn x 7days renally dosed. hypoglycemic protocol general surgeon Dr. Barlow consulted. normal lactic acid BPH / Urine retention hold meds for now while npo resume meds once po intake resumed gottlieb cath Aspiration Keep n.p.o. Swallow eval once abdominal issues have resolved Continue IV fluids CXR-NEW Infiltrates on iv zosyn constipation defer to surgery for bowel regimen Diet: npo dvt prophylaxis: compression stockings activity: as tolerated Code status: DNR/DNI VS, I&O, 24H, [facility] Vital Signs/I&O Vital Signs Date Time Temp Pulse Resp B/P (MAP) Pulse Ox O2 Delivery O2 Flow Rate FiO2 11/21/20 06:00 98.4 75 18 122/67 (85) 97 Nasal Cannula 2.0 I&O- Last 24 Hours up to 6 AM 11/21/20 06:00 Intake Total 1900 ml Output Total 1575 ml Balance 325 ml Laboratory Data 24H LABS Laboratory Tests 2 11/21/20 06:23: Immature Granulocyte % (Auto) 0.3, Neutrophils (%) (Auto) 78.9H, Lymphocytes (%) (Auto) 13.3L, Monocytes (%) (Auto) 5.7, Eosinophils (%) (Auto) 1.7, Basophils (%) (Auto) 0.1, Neutrophils # (Auto) 5.4, Lymphocytes # (Auto) 0.9L, Monocytes # (Auto) 0.4, Eosinophils # (Auto) 0.1, Basophils # (Auto) 0.0, Nucleated Red Blood Cells % (auto) 0.0, Anion Gap 5L, Glomerular Filtration Rate > 60.0, Calcium Level 8.1L, Magnesium Level 2.4 CBC/BMP Laboratory Tests 11/21/20 06:23 WILL REYNA MD Nov 21, 2020 13:32
[2020-11-21 14:00] VITALS: BP 132/72
[2020-11-21] MEDS: TAMSULOSIN 0.4 MG CAP PO SCH (20:34)
[2020-11-21 23:00] VITALS: BP 139/77
[2020-11-22] MEDS: PIPERACILLIN/TAZOBACTAM SOD 3.375 GM in D5W MINI-BAG PLUS 50 ML IV SCH ×4 (03:16→22:30)
[2020-11-22] MEDS: KCL 40MEQ IN D5/0.45NS 1000ML 1,000 ML IV SCH (03:16)
[2020-11-22 06:00] VITALS: BP 145/82
[2020-11-22] MEDS: MORPHINE 4 MG/ML 1ML VIAL/SYRINGE (J2270) IV PRN ×2 (06:19→10:18)
[2020-11-22 07:00] LABS: BASO % 0.2 % (0.0-1.0); EOS % 0.2 % (0.0-3.0); HEMATOCRIT 32.7 % (42.0-52.0); MEAN CORPUSCULAR HEMOGLOBIN 24.2 pg (27.0-33.0); MEAN CORPUSCULAR HGB CONC 30.6 g/dl (32.0-36.5); MONO # 0.5 10^3/uL (0.0-0.8); MONO % 6.3 % (2.0-8.0); NEUTROPHILS # 6.7 10^3/uL (1.5-8.5); NEUTROPHILS % 80.8 % (36.0-66.0); PLATELET COUNT, AUTOMATED 349 10^3/uL (150-450); RED BLOOD COUNT 4.14 10^6/uL (4.30-6.10); WHITE BLOOD COUNT 8.3 10^3/uL (4.0-10.0)
[2020-11-22 07:22] LABS: BLOOD UREA NITROGEN 19 MG/DL (7-18); CALCIUM LEVEL 8.2 MG/DL (8.8-10.2); CARBON DIOXIDE LEVEL 22 MEQ/L (21-32); CHLORIDE LEVEL 112 MEQ/L (98-107); CREATININE FOR GFR 0.98 MG/DL (0.70-1.30); GLOMERULAR FILTRATION RATE > 60.0 (>35); GLUCOSE, FASTING 149 MG/DL (70-100); MAGNESIUM LEVEL 2.2 MG/DL (1.8-2.4); POTASSIUM SERUM 4.6 MEQ/L (3.5-5.1); SODIUM LEVEL 139 MEQ/L (136-145)
[2020-11-22] MEDS: TAMSULOSIN 0.4 MG CAP PO SCH ×2 (09:51→22:29)
[2020-11-22] MEDS: PANTOPRAZOLE 40MG VIAL (C9113 PER 1) IV SCH ×2 (09:52→22:30)
[2020-11-22] MEDS: MIRALAX *UNIT DOSE* 17GM PACKET PO SCH ×2 (09:52→22:30)
[2020-11-22] MEDS: BISACODYL 10 MG SUPP PR SCH ×2 (09:53→22:29)
--- NOTE | 2020-11-22 10:41 | IPNPDOC ---
Text Note Date of Service The patient was seen on 11/22/20. NOTE No acute events overnight. He is having BMs daily, and still has brown NG outp ut, however, his abdomen is still very distended. VSSAF NAD abd - soft, distended, NT labs -below A) 89y/o male with severe constipation and obstruction secondary to distal colonic stricture that is most likely chronic diverticulitis. P) NPO NGT abx continue with laxatives and suppositories will continue to monitor Gagan Barlow DO VS,[place]onson, I+O VS, [place], I+O Laboratory Tests 11/22/20 06:39 Vital Signs Date Time Temp Pulse Resp B/P (MAP) Pulse Ox O2 Delivery O2 Flow Rate FiO2 11/22/20 10:30 16 11/22/20 06:29 Room Air 11/22/20 06:00 98.1 103 145/82 (103) 92 11/21/20 06:00 2.0 I&O- Last 24 Hours up to 6 AM 11/22/20 06:00 Intake Total 2900 ml Output Total 1200 ml Balance 1700 ml WILFREDO BARLOW DO Nov 22, 2020 10:41
[2020-11-22] MEDS ORDERED: FUROSEMIDE 40MG/4ML VIAL (J1940) IV ONE (10:50)
--- NOTE | 2020-11-22 10:59 | REP ---
INDICATION: assess NG tip placement. COMPARISON: 11/20/2020. TECHNIQUE: Single portable AP view of the chest was performed. FINDINGS: A nasogastric tube is seen with the side port in the stomach, within a large hiatal hernia.Bilateral interstitial coarsening is again noted with mild left base atelectasis/infiltrate. The heart and mediastinum are unchanged. Dilated small bowel loops are again seen in the upper abdomen. IMPRESSION: Nasogastric tube side port is in the stomach, within a large hiatal hernia.Mild left base atelectasis/infiltrate. <Electronically signed by Pierce Brown > 11/22/20 1056
[2020-11-22 11:09] LABS: CK-MB VALUE MASS < 1.0 NG/ML (<3.6); CPK CREATINE PHOSPHOKINASE 63 U/L (39-308); MB/CK RELATIVE INDEX 1.59 (< OR =4); NT-PRO BNP 5909 PG/ML (<450); TROPONIN I < 0.02 NG/ML (< 0.10)
[2020-11-22] MEDS ORDERED: LEVALBUTEROL 1.25 MG/0.5 ML CONCENTRATE NEB NEB ONE (11:15)
--- NOTE | 2020-11-22 12:51 | IPNPDOC ---
Date Seen The patient was seen on 11/22/20. Progress Note SUBJECTIVE: increasing abdomina distention and congestion this am. no fever. given neb. c/o sob w/o fever chills ng tube w/o n/v no flatus today PHYSICAL EXAMINATION: VITAL SIGNS: see below GENERAL APPEARANCE: ng tube no use of resp acc mm, but slight resp distress. no conversational dyspnea HEENT: Edentulous dry mm no carotid bruit NG tube with yellow discharge CARDIOVASCULAR:S1S2 RRR no JVD LUNGS: Diminished AEBE no w/r/r ABDOMEN: more distended doughy no fluid wave hypoactive bowel sounds nontender no rebound no guarding EXTREMITIES:no pitting edema, cyanosis, or clubbing LABORATORY DATA: See below. IMAGING: see below MICROBIOLOGY: Please see below. ASSESSMENT:89y/o M DNR/DNI admitted for abd pain: partial sbo/intussusception: Day #4 IV Zosyn No surgical intervention Supportive care with nasogastric tube IV fluids bowel regimen with suppositories and enemas Diverticulitis: npo, ivf, iv zosyn x 7days renally dosed. BPH / Urine retention hold meds for now while npo resume meds once po intake resumed gottlieb cath Aspiration Keep n.p.o. Swallow eval once abdominal issues have resolved Continue IV fluids to to prevent hypoglycemia CXR-NEW Infiltrates on iv zosyn constipation defer to surgery for bowel regimen Diet: npo dvt prophylaxis: compression stockings activity: as tolerated Code status: DNR/DNI VS, I&O, 24H, Fishbone Vital Signs/I&O Vital Signs Date Time Temp Pulse Resp B/P (MAP) Pulse Ox O2 Delivery O2 Flow Rate FiO2 11/22/20 10:30 16 11/22/20 06:29 Room Air 11/22/20 06:00 98.1 103 145/82 (103) 92 11/21/20 06:00 2.0 I&O- Last 24 Hours up to 6 AM 11/22/20 06:00 Intake Total 2900 ml Output Total 1200 ml Balance 1700 ml Laboratory Data 24H LABS Laboratory Tests 2 11/22/20 06:39: Immature Granulocyte % (Auto) 0.5, Neutrophils (%) (Auto) 80.8H, Lymphocytes (%) (Auto) 12.0L, Monocytes (%) (Auto) 6.3, Eosinophils (%) (Auto) 0.2, Basophils (%) (Auto) 0.2, Neutrophils # (Auto) 6.7, Lymphocytes # (Auto) 1.0L, Monocytes # (Auto) 0.5, Eosinophils # (Auto) 0.0, Basophils # (Auto) 0.0, Nucleated Red Blood Cells % (auto) 0.0, Anion Gap 5L, Glomerular Filtration Rate > 60.0, Calcium Level 8.2L, Magnesium Level 2.2, Total Creatine Kinase 63, Creatine Kinase MB < 1.0, Creatine Kinase MB Relative Index 1.59, Troponin I < 0.02, OB-Awf-Z-Type Natriuretic Peptide 5909H CBC/BMP Laboratory Tests 11/22/20 06:39 WILL REYNA MD Nov 22, 2020 12:51
[2020-11-22 14:00] VITALS: BP 115/90
[2020-11-22 22:00] VITALS: BP 154/91
[2020-11-23] VITALS: BP 154/91
[2020-11-23] MEDS: PIPERACILLIN/TAZOBACTAM SOD 3.375 GM in D5W MINI-BAG PLUS 50 ML IV SCH ×2 (03:54→10:34)
[2020-11-23 06:00] VITALS: BP 147/90
[2020-11-23 07:19] LABS: BASO % 0.3 % (0.0-1.0); EOS # 0.1 10^3/uL (0.0-0.5); EOS % 0.7 % (0.0-3.0); HEMATOCRIT 34.5 % (42.0-52.0); HEMOGLOBIN 10.7 g/dl (13.5-17.5); LYMPH # 1.7 10^3/uL (1.5-5.0); LYMPH % 16.4 % (24.0-44.0); MEAN CORPUSCULAR HEMOGLOBIN 24.3 pg (27.0-33.0); MEAN CORPUSCULAR VOLUME 78.4 fl (80.0-96.0); MONO # 0.8 10^3/uL (0.0-0.8); MONO % 7.4 % (2.0-8.0); NEUTROPHILS # 7.6 10^3/uL (1.5-8.5); NEUTROPHILS % 74.6 % (36.0-66.0); PLATELET COUNT, AUTOMATED 378 10^3/uL (150-450); WHITE BLOOD COUNT 10.1 10^3/uL (4.0-10.0)
[2020-11-23 07:35] LABS: CALCIUM LEVEL 8.2 MG/DL (8.8-10.2); CREATININE FOR GFR 1.44 MG/DL (0.70-1.30); GLOMERULAR FILTRATION RATE 49.3 (>35); POTASSIUM SERUM 4.4 MEQ/L (3.5-5.1)
--- NOTE | 2020-11-23 08:39 | IPNPDOC ---
Text Note Date of Service The patient was seen on 11/23/20. NOTE Patient admitted in the hospital for bowel obstruction secondary to ?diverticu litis/intusussception at the level of sigmoid colon. Still with NGT, having bms with the miralax but not having spontaneous flatus. He denies any abdominal pain, reports increased productive cough but denies any shortness of breath. He remains very distended, has a nasogastric tube in place Examination Patient overall looks comfortable except for the occasional coughing which irritates his throat with a nasogastric tube Abdomen is round, markedly distended, soft. Quiet to hypoactive bowel sounds no tenderness on deep palpation on the left lower quadrant, right lower quadrant area Impression and plan bowel obstruction related to a process in the LLQ aea maybe diverticulitis/mass/intussusception repeat CT abdomen and pelvis with PO and IV contrast I reviewed the results of the CT abdomen and pelvis and this shows what looks to be a mass to what initially was reported as intussusception of the large bowel, still has features of bowel obstruction (large bowel obstruction) no free air or free fluid. VS,Fishbone, I+O VS, Fishbone, I+O Laboratory Tests 11/23/20 07:00 Vital Signs Date Time Temp Pulse Resp B/P (MAP) Pulse Ox O2 Delivery O2 Flow Rate FiO2 11/23/20 06:00 97.9 83 18 147/90 (109) 95 Room Air 11/21/20 06:00 2.0 I&O- Last 24 Hours up to 6 AM 11/23/20 06:00 Intake Total 500 ml Output Total 2250 ml Balance -1750 ml CARO GAFFNEY MD Nov 23, 2020 08:27
[2020-11-23] MEDS ORDERED: NS 1,000 ML IV ONE (09:00)
--- NOTE | 2020-11-23 09:36 | REP ---
INDICATION: sob. COMPARISON: 11/22/2020 TECHNIQUE: Portable AP chest with the patient upright. FINDINGS: The nasogastric tube is unchanged with the distal tip again within bowel loops in a large fixed hiatal hernia. Interstitial coarsening is again noted. The questionable infiltrate inferiorly on the left appears improved. There are no pleural effusions. Dilated bowel loops are again noted in the visualized upper abdomen. IMPRESSION: The nasogastric tube is unchanged. The questionable infiltrate inferiorly in the left lung appears improved. Dilated bowel loops again noted in the upper abdomen. <Electronically signed by Pierce Arnold > 11/23/20 0932
[2020-11-23] MEDS ORDERED: D5W/0.45% SODIUM CHLORIDE 1,000 ML IV SCH (10:00)
[2020-11-23] MEDS: MIRALAX *UNIT DOSE* 17GM PACKET PO SCH ×2 (10:33→22:23)
[2020-11-23] MEDS: PANTOPRAZOLE 40MG VIAL (C9113 PER 1) IV SCH ×2 (10:33→22:22)
[2020-11-23] MEDS: TAMSULOSIN 0.4 MG CAP PO SCH ×2 (10:34→22:23)
[2020-11-23] MEDS: BISACODYL 10 MG SUPP PR SCH ×2 (10:34→22:23)
[2020-11-23] MEDS: GASTROGRAFIN SOLUTION 30ML PO SCH ×2 (10:35→11:11)
[2020-11-23 10:50] LABS: INR 1.29; PROTHROMBIN TIME 16.6 SECONDS (12.7-14.5)
[2020-11-23 10:51] LABS: PARTIAL THROMBOPLASTIN TIME 45.5 SECONDS (25.9-37.0)
[2020-11-23 10:53] LABS: D-DIMER QUANT 2242.93 ng/ml (<500)
[2020-11-23 11:26] LABS: ALBUMIN 2.3 GM/DL (3.2-5.2); ALT/SGPT 9 U/L (12-78); BILIRUBIN,DIRECT 0.4 MG/DL (0.0-0.2); BILIRUBIN,TOTAL 0.7 MG/DL (0.2-1.0); C REACTIVE PROTEIN QUANTITATIV 8.51 MG/DL (0.00-0.30); CK-MB VALUE MASS 1.1 NG/ML (<3.6); CPK CREATINE PHOSPHOKINASE 60 U/L (39-308); FERRITIN 94 NG/ML (26-388); LDH LACTATE DEHYDROGENASE 193 U/L (87-241); MB/CK RELATIVE INDEX 1.83 (< OR =4); NT-PRO BNP 4104 PG/ML (<450); TOTAL PROTEIN 6.6 GM/DL (6.4-8.2); TROPONIN I < 0.02 NG/ML (< 0.10)
[2020-11-23] MEDS ORDERED: ISOVUE-370 76% 100ML VIAL As Ordered ONE (12:30)
--- NOTE | 2020-11-23 13:31 | REP ---
INDICATION: continued bowel obstruction. COMPARISON: Abdomen/pelvis CT dated 11/19/2020. TECHNIQUE: Abdomen/pelvis CT with IV and bowel contrast. FINDINGS: There is marked small bowel and large bowel distention compatible with bowel obstruction, as previously There is a mass in the abdominal left lower quadrant as previously. I suspect this mass is in the proximal sigmoid colon. The colon distal to this mass does not appear to be distended. The colon is significantly distended with fluid, air and large volume of fecal residue. The small bowel is distended with fluid and air. There is a large fixed hiatal hernia containing the stomach and small bowel loops as previously. There has been interval placement of a nasogastric tube with the tip in the stomach which is in the hiatal hernia. There is not been no reduction in the degree of bowel distention from the prior study. There is no pneumoperitoneum. There is no ascites. Massive prostatomegaly is again noted. There is no Frausto catheter in the bladder. The bladder is nondistended. The liver, pancreas, spleen, adrenals, kidneys, abdominal aorta and mesentery are unchanged. There is a 5.4 cm right renal Bosniak type 1 cyst, unchanged. IMPRESSION: Persisting large and small bowel obstruction with no significant reduction in bowel distention from the prior study in spite of interval placement of a nasogastric tube. There is a large hiatal hernia containing the stomach and small bowel loops. The tip of the nasogastric tube is within the hiatal hernia in the stomach. There is no pneumoperitoneum or ascites. The left lower quadrant abdominal mass is again identified. I suspect this mass is within the proximal sigmoid colon, likely a napkin ring lesion. The colon is nondistended distal to this mass. This could be confirmed by colonoscopy. Massive prostatomegaly, unchanged. Interval placement of a Frausto catheter. The bladder is nondistended. Bosniak type 1 right renal cyst as described. <Electronically signed by Pierce Arnold > 11/23/20 [id number]
--- NOTE | 2020-11-23 13:31 | IPNPDOC ---
Date Seen The patient was seen on 11/23/20. Progress Note SUBJECTIVE: NG tube still in place with feculent brownish material patient continues to have abdominal distention but denies any nausea vomiting fever he was congested yesterday with increased oral secretions He denies any shortness of breath today, PND, or orthopnea. Repeat imaging shows a questionable left lower lobe infiltrate. MRSA screen has been negative. Patient has been on intravenous Zosyn since hospital admission. Patient is on contact isolation due to exposure to [facility] staff who has tested positive for coronavirus Patient has been having small bowel movements overnight PHYSICAL EXAMINATION: VITAL SIGNS: see below GENERAL APPEARANCE: ng tube no use of resp acc mm no conversational dyspnea HEENT: Edentulous dry mm no carotid bruit NG tube with brownish discharge No JVD CARDIOVASCULAR:S1S2 RRR no JVD LUNGS: Fine crackles at the left base diminished air entry is equal ABDOMEN: Distended hypoactive bowel sounds no rebound no guarding EXTREMITIES:no pitting edema, cyanosis, or clubbing LABORATORY DATA: See below. IMAGING: see below MICROBIOLOGY: Please see below. ASSESSMENT:89y/o M DNR/DNI admitted for abd pain: partial sbo/intussusception: On IV Zosyn No immediate surgical intervention Repeat CT abdomen pelvis 11/23/2020 Supportive care with nasogastric tube Judicious IV fluids since patient had some fluid overload yesterday and received IV Lasix bowel regimen with suppositories and enemas New left lower lobe infiltrate questionable pneumonia On IV Zosyn Chest x-ray: No pleural effusion left lower lobe infiltrate. Acute kidney injury Received 1 dose of Lasix yesterday due to congestion With improvement in respiratory status, but worsening azotemia without acidosis or hyperkalemia Judicious IV fluids to prevent dehydration, but will need to monitor for fluid overload Gross hematuria Check UA urine C&S Check hemoglobin every 12 hourly Not on any antiplatelet or anticoagulants Transfuse if needed. Diverticulitis: npo, ivf, iv zosyn x 7days renally dosed. BPH / Urine retention hold meds for now while npo resume meds once po intake resumed gottlieb cath Aspiration Keep n.p.o. Swallow eval once abdominal issues have resolved CXR-NEW left lower lobe infiltrate no effusion on iv zosyn Elevated BNP possible for left lower lobe overload In the setting of recent IV fluids given due to n.p.o. status for hydration and to prevent hypoglycemia Patient is clinically dry with no edema, dry chapped lips. Chest x-ray does not exhibit increasing vascular cephalization, pleural effusion. Check 2D echo constipation defer to surgery for bowel regimen Diet: npo dvt prophylaxis: compression stockings activity: as tolerated Code status: DNR/DNI VS, I&O, 24H, Fishbone VS, I&O, 24H, Fishbone Vital Signs/I&O Vital Signs Date Time Temp Pulse Resp B/P (MAP) Pulse Ox O2 Delivery O2 Flow Rate FiO2 11/23/20 06:00 97.9 83 18 147/90 (109) 95 Room Air 11/21/20 06:00 2.0 I&O- Last 24 Hours up to 6 AM 11/23/20 06:00 Intake Total 500 ml Output Total 2250 ml Balance -1750 ml Laboratory Data 24H LABS Laboratory Tests 2 11/23/20 06:58: Erythrocyte Sedimentation Rate 43H 11/23/20 07:00: Immature Granulocyte % (Auto) 0.6, Neutrophils (%) (Auto) 74.6H, Lymphocytes (%) (Auto) 16.4L, Monocytes (%) (Auto) 7.4, Eosinophils (%) (Auto) 0.7, Basophils (%) (Auto) 0.3, Neutrophils # (Auto) 7.6, Lymphocytes # (Auto) 1.7, Monocytes # (Auto) 0.8, Eosinophils # (Auto) 0.1, Basophils # (Auto) 0.0, Nucleated Red Blood Cells % (auto) 0.0, Anion Gap 8, Glomerular Filtration Rate 49.3, Calcium Level 8.2L, Magnesium Level 2.0 11/23/20 10:07: Prothrombin Time 16.6H, Prothromb Time International Ratio 1.29, Activated Partial Thromboplast Time 45.5H, Fibrinogen 601H, D-Dimer, Quantitative 2242.93H, Ferritin 94, Total Bilirubin 0.7, Direct Bilirubin 0.4H, Aspartate Amino Transf (AST/SGOT) 12, Alanine Aminotransferase (ALT/SGPT) 9L, Alkaline Phosphatase 118H, Lactate Dehydrogenase 193, Total Creatine Kinase 60, Creatine Kinase MB 1.1, Creatine Kinase MB Relative Index 1.83, Troponin I < 0.02, C- Reactive Protein, Quantitative 8.51H, AX-Ezs-U-Type Natriuretic Peptide 4104H, Total Protein 6.6, Albumin 2.3L, Albumin/Globulin Ratio 0.5 CBC/BMP Laboratory Tests 11/23/20 07:00 WILL REYNA MD Nov 23, 2020 11:57
[2020-11-23 14:00] VITALS: BP 147/97
[2020-11-23] MEDS: D5W/0.45% SODIUM CHLORIDE 1,000 ML IV SCH (14:11)
[2020-11-23] MEDS: PIPERACILLIN/TAZOBACTAM SOD 2.25 GM in D5W MINI-BAG PLUS 50 ML IV SCH ×2 (14:15→22:22)
[2020-11-23 17:46] LABS: HEMATOCRIT 33.8 % (42.0-52.0); HEMOGLOBIN 10.3 g/dl (13.5-17.5)
[2020-11-23 18:19] LABS: CREATININE FOR GFR 1.39 MG/DL (0.70-1.30); GLOMERULAR FILTRATION RATE 51.3 (>35)
[2020-11-23 22:00] VITALS: BP 139/75
[2020-11-23 23:35] LABS: HEMATOCRIT 31.4 % (42.0-52.0); HEMOGLOBIN 9.7 g/dl (13.5-17.5)
[2020-11-24] MEDS: D5W/0.45% SODIUM CHLORIDE 1,000 ML IV SCH (03:07)
[2020-11-24] MEDS: PIPERACILLIN/TAZOBACTAM SOD 2.25 GM in D5W MINI-BAG PLUS 50 ML IV SCH ×2 (03:07→09:16)
[2020-11-24 06:00] VITALS: BP 120/71
[2020-11-24 07:46] LABS: BASO % 0.3 % (0.0-1.0); EOS # 0.2 10^3/uL (0.0-0.5); EOS % 1.6 % (0.0-3.0); HEMATOCRIT 33.3 % (42.0-52.0); HEMOGLOBIN 10.2 g/dl (13.5-17.5); LYMPH % 16.1 % (24.0-44.0); MEAN CORPUSCULAR HEMOGLOBIN 24.1 pg (27.0-33.0); MEAN CORPUSCULAR HGB CONC 30.6 g/dl (32.0-36.5); MEAN CORPUSCULAR VOLUME 78.5 fl (80.0-96.0); MONO # 0.9 10^3/uL (0.0-0.8); MONO % 6.9 % (2.0-8.0); NEUTROPHILS # 9.3 10^3/uL (1.5-8.5); NEUTROPHILS % 74.5 % (36.0-66.0); PLATELET COUNT, AUTOMATED 425 10^3/uL (150-450); RED BLOOD COUNT 4.24 10^6/uL (4.30-6.10); WHITE BLOOD COUNT 12.4 10^3/uL (4.0-10.0)
[2020-11-24 08:28] LABS: CALCIUM LEVEL 8.4 MG/DL (8.8-10.2); CREATININE FOR GFR 1.41 MG/DL (0.70-1.30); GLOMERULAR FILTRATION RATE 50.5 (>35); MAGNESIUM LEVEL 2.1 MG/DL (1.8-2.4); POTASSIUM SERUM 3.8 MEQ/L (3.5-5.1)
--- NOTE | 2020-11-24 08:43 | REP ---
INDICATION: sob. COMPARISON: A portable chest dated 11/23/2020. TECHNIQUE: AP portable chest with the patient sitting. FINDINGS: The nasogastric tube is unchanged. The distal tip is again within bowel loops in a large fixed hiatal hernia. There is diffuse interstitial coarsening, unchanged. Questionable infiltrate inferiorly in the left lung is unchanged. No pleural effusions. Dilated bowel loops are again noted in the visualized upper abdomen. IMPRESSION: There is no significant interval change. <Electronically signed by Pierce Arnold > 11/24/20 0875
--- NOTE | 2020-11-24 08:47 | REP ---
INDICATION: sbo. COMPARISON: Abdomen/pelvis CT dated 11/23/2020. TECHNIQUE: Single AP supine view of the abdomen. FINDINGS: There are markedly distended small bowel loops and large bowel loops with no significant interval change. IMPRESSION: Persistent dilated large and small bowel loops compatible with bowel obstruction. <Electronically signed by Pierce Arnold > 11/24/20 0815
[2020-11-24] MEDS: MIRALAX *UNIT DOSE* 17GM PACKET PO SCH ×2 (09:00→20:30)
[2020-11-24] MEDS: BISACODYL 10 MG SUPP PR SCH ×2 (09:00→20:30)
[2020-11-24] MEDS: PANTOPRAZOLE 40MG VIAL (C9113 PER 1) IV SCH ×2 (09:16→20:30)
[2020-11-24] MEDS: TAMSULOSIN 0.4 MG CAP PO SCH ×2 (09:16→20:30)
[2020-11-24] MEDS: GASTROGRAFIN SOLUTION 30ML PO SCH ×2 (10:23→10:25)
[2020-11-24] MEDS ORDERED: MEROPENEM INJ 500 MG in IV 1 EA IV SCH (11:40)
--- NOTE | 2020-11-24 11:42 | IPNPDOC ---
Date Seen The patient was seen on 11/24/20. Progress Note SUBJECTIVE: Patient still complains of increasing abdominal distention he is not passing any flatus or having bowel movements but patient has hyperactive bowel sounds He denies any chest pain pressure tightness or shortness of breath He complains of feeling thirsty and fatigued generalized weakness PHYSICAL EXAMINATION: VITAL SIGNS: see below GENERAL APPEARANCE: ng tube speaks in full sentences HEENT: Edentulous dry mm no carotid bruit NG tube with brownish discharge No JVD no stridor no conversational dyspnea CARDIOVASCULAR:S1S2 RRR no JVD LUNGS: Fine crackles at the left base diminished air entry is equal ABDOMEN: Much more distended today as compared to yesterday hyper active bowel sounds no rebound no guarding tympany Allen EXTREMITIES:no pitting edema, cyanosis, or clubbing LABORATORY DATA: See below. IMAGING: see below MICROBIOLOGY: Please see below. ASSESSMENT:89y/o M DNR/DNI admitted for abd pain: partial sbo/intussusception: Status post IV Zosyn but will worsening white count Therefore changed to meropenem renally dosed on 11/24/2020 Chest x-ray shows possible infiltrate unchanged Supportive care with nasogastric tube N.p.o. General surgery consulted Lactic acid normal New left lower lobe infiltrate questionable pneumonia Status post IV Zosyn Changed to IV meropenem on 11/24/2020 due to worsening white count Chest x-ray: No pleural effusion left lower lobe infiltrate. Acute kidney injury due to n.p.o. status and decreased oral intake with recent Lasix for fluid overload IV fluids Monitor urine output strict I's and O's Gross hematuria resolved Patient says he usually gets gross hematuria at home which resolves on its own. Hemoglobin stable hemodynamically stable Not on any antiplatelet or anticoagulants Transfuse if needed. Diverticulitis: npo, ivf, iv zosyn x 7days renally dosed. BPH / Urine retention hold meds for now while npo resume meds once po intake resumed gottlieb cath Aspiration Keep n.p.o. Swallow eval once abdominal issues have resolved CXR-NEW left lower lobe infiltrate no effusion on iv zosyn Elevated BNP possible for left lower lobe overload In the setting of recent IV fluids given due to n.p.o. status for hydration and to prevent hypoglycemia Patient is clinically dry with no edema, dry chapped lips. Chest x-ray does not exhibit increasing vascular cephalization, pleural effusion. Awaiting report of 2D echo constipation defer to surgery for bowel regimen Diet: npo IV fluids given due to dehydration and hypernatremia despite recent congestion requiring IV Lasix dvt prophylaxis: compression stockings activity: as tolerated Code status: DNR/DNI VS, I&O, 24H, Fishbone Vital Signs/I&O Vital Signs Date Time Temp Pulse Resp B/P (MAP) Pulse Ox O2 Delivery O2 Flow Rate FiO2 11/24/20 06:00 97.4 85 20 120/71 (87) 95 Room Air 11/21/20 06:00 2.0 I&O- Last 24 Hours up to 6 AM 11/24/20 06:00 Intake Total 850 ml Output Total 1475 ml Balance -625 ml Laboratory Data 24H LABS Laboratory Tests 2 11/23/20 17:34: Anion Gap 12, Glomerular Filtration Rate 51.3, Lactic Acid Level 1.1, Calcium Level 8.0L 11/24/20 06:34: Anion Gap 9, Glomerular Filtration Rate 50.5, Calcium Level 8.4L, Immature Granulocyte % (Auto) 0.6, Neutrophils (%) (Auto) 74.5H, Lymphocytes (%) (Auto) 16.1L, Monocytes (%) (Auto) 6.9, Eosinophils (%) (Auto) 1.6, Basophils (%) (Auto) 0.3, Neutrophils # (Auto) 9.3H, Lymphocytes # (Auto) 2.0, Monocytes # (Auto) 0.9H, Eosinophils # (Auto) 0.2, Basophils # (Auto) 0.0, Nucleated Red Blood Cells % (auto) 0.0, Magnesium Level 2.1 CBC/BMP Laboratory Tests 11/23/20 17:34 11/23/20 23:25 11/24/20 06:34 Microbiology Microbiology 11/23/20 Respiratory Virus Panel (PCR) (JAY) - Final, Complete WILL REYNA MD Nov 24, 2020 11:42
[2020-11-24] MEDS ORDERED: NS 0.45% 1,000 ML IV ONE (12:00)
[2020-11-24 14:00] VITALS: BP 123/64
[2020-11-24] MEDS: MEROPENEM INJ 1 GM in IV 1 EA IV SCH (17:47)
--- NOTE | 2020-11-24 17:57 | ECHO ---
ECHOCARDIOGRAM DATE OF PROCEDURE: 11/24/2020 Age: 89 Gender: Male Height: 68 inches Weight: 123 pounds Body surface area: 1.67 m2 PATIENT LOCATION: Inpatient, [address] [place] [address], Room 4224. REFERRING PHYSICIAN: Kyra Roe M.D. INDICATION: Heart failure (unspecified). MEASUREMENTS: 2D Measurements: RV - 4.2 cm LV - 4.3 cm Septum 1.2 cm Posterior wall 1.2 cm Aortic root 3.7 cm LA - 3.8 cm LVEF 65% Doppler Measurements: AV - 1.66 m/sec LVOT - 0.8 m/sec MV-E 62, A 73, EA ratio 0.8 Early mitral deceleration time 201 msec E prime medial 5.9 A prime medial 8.5 E prime lateral 8.4 Average E/E ratio 8.7/PCWP 12.7 mmHg PV - 0.8 m/sec Pulmonary artery acceleration time 55 msec RVSP 56 mmHg IVC - Not well visualized COMMENTS: Normal sinus rhythm without intraventricular conduction disturbance. M-mode and 2-dimensional echocardiography was performed with pulse, continuous wave, color flow and tissue Doppler studies. Borderline concentric left ventricular hypertrophy with normal wall motion. Left atrial size upper limits of normal with grade 1 left ventricular (LV) diastolic dysfunction, but currently normal mean left atrial pressure. Mildly dilated right heart chambers with normal wall motion and doppler evidence of moderate pulmonary hypertension. His inferior vena cava (IVC) could not be well visualized to estimate his central venous pressure. Normal aortic root size. Mild aortic valvular sclerosis without stenosis or insufficiency. Degenerative changes of his mitral valvular apparatus without inflow tract obstruction, but moderate posteriorly directed insufficiency. Normal appearing tricuspid valve with at least moderate insufficiency. No apparent intracardiac masses or pericardial effusion.
[2020-11-24] MEDS ORDERED: FAT EMULSION IV 250 ML IV SCH (18:00)
[2020-11-24] MEDS: AMINO AC/ELECTROLYTE/DEX/CALC 1,000 ML IV SCH (18:44)
--- NOTE | 2020-11-24 19:32 | IPNPDOC ---
Text Note Date of Service The patient was seen on 11/24/20. NOTE Patient continues to be distended. CT done yesterday shows continued obstructi oin at the level of the sigmoid colon now looking like a mass (as read by the radiologist) rather than an intusussception (initial read on previous CT) Vital signs stable. Afebrile Examination Still looks comfortable Lungs are clear Regular heart rate and rhythm Abdomen is moderately rounded, moderately distended. Soft nontender on palpation. Quiet Impression and plan Large bowel obstruction at the level of the sigmoid colon. None repeat imaging looks to be secondary to possible mass at that area. No signs of perforation. He has had no prior colonoscopies. I had a long discussion with him also with his daughter by the phone. He has persistent obstruction and this may be related to a mass at the level of the sigmoid colon. Initially it is being reported as intussusception, and he was treated nonoperatively for possibility of diverticulitis related bowel obstruction but clearly he is no better. I think he will need operative intervention so I went ahead and scheduled him for surgery tomorrow given that he does not have any emergent features for the surgery. I will discuss this with Dr. Barlow who is his consulting surgeon when he comes back tomorrow. At least he will need divergent to relieve the obstruction versus performing resection with colostomy. Either way I told him he will need temporary ostomy. The length of time for the ostomy would require on his recovery as well as on the pathology and need for subsequent therapy like chemo therapy for possibility of malignancy. Patient has agreed with the plan. VS,Reubenbone, I+O VS, Reubenbone, I+O Laboratory Tests 11/23/20 23:25 11/24/20 06:34 Vital Signs Date Time Temp Pulse Resp B/P (MAP) Pulse Ox O2 Delivery O2 Flow Rate FiO2 11/24/20 14:00 97.6 85 18 123/64 (83) 97 Room Air 11/21/20 06:00 2.0 I&O- Last 24 Hours up to 6 AM 11/24/20 06:00 Intake Total 850 ml Output Total 1475 ml Balance -625 ml CARO GAFFNEY MD Nov 24, 2020 19:32
[2020-11-24 22:00] VITALS: BP 120/73
[2020-11-25] VITALS (8 sets, daily range): BP systolic 94–139; BP diastolic 54–69
[2020-11-25] MEDS: MEROPENEM INJ 1 GM in IV 1 EA IV SCH ×2 (03:23→15:26)
[2020-11-25 06:22] LABS: BASO % 0.3 % (0.0-1.0); EOS # 0.3 10^3/uL (0.0-0.5); EOS % 2.9 % (0.0-3.0); HEMATOCRIT 32.9 % (42.0-52.0); HEMOGLOBIN 10.2 g/dl (13.5-17.5); LYMPH # 1.9 10^3/uL (1.5-5.0); MEAN CORPUSCULAR HEMOGLOBIN 24.2 pg (27.0-33.0); MONO # 0.8 10^3/uL (0.0-0.8); MONO % 7.7 % (2.0-8.0); NEUTROPHILS # 7.4 10^3/uL (1.5-8.5); PLATELET COUNT, AUTOMATED 407 10^3/uL (150-450); RED BLOOD COUNT 4.22 10^6/uL (4.30-6.10); WHITE BLOOD COUNT 10.6 10^3/uL (4.0-10.0)
[2020-11-25] MEDS ORDERED: NS 0.45% 1,000 ML IV ONE (06:35)
[2020-11-25 06:48] LABS: BLOOD UREA NITROGEN 20 MG/DL (7-18); CALCIUM LEVEL 8.3 MG/DL (8.8-10.2); CARBON DIOXIDE LEVEL 24 MEQ/L (21-32); CHLORIDE LEVEL 107 MEQ/L (98-107); CREATININE FOR GFR 1.18 MG/DL (0.70-1.30); GLOMERULAR FILTRATION RATE > 60.0 (>35); GLUCOSE, FASTING 105 MG/DL (70-100); POTASSIUM SERUM 3.5 MEQ/L (3.5-5.1); SODIUM LEVEL 140 MEQ/L (136-145)
[2020-11-25] MEDS: BISACODYL 10 MG SUPP PR SCH ×2 (08:31→21:00)
[2020-11-25] MEDS: PANTOPRAZOLE 40MG VIAL (C9113 PER 1) IV SCH ×2 (08:31→21:41)
[2020-11-25] MEDS: MIRALAX *UNIT DOSE* 17GM PACKET PO SCH ×2 (08:31→21:00)
[2020-11-25] MEDS: TAMSULOSIN 0.4 MG CAP PO SCH ×2 (08:31→21:41)
--- NOTE | 2020-11-25 11:56 | IPNPDOC ---
Text Note Date of Service The patient was seen on 11/25/20. NOTE No acute events overnight. He is having BMs daily, and still has brown NG outp ut. No improvement in his abd distention over the weekend despite having output. Dr. Nicolas spoke with him this weekend about doing a colostomy today, and he is on the schedule for that with him this afternoon. VSSAF NAD abd - soft, distended, NT labs -below A) 89y/o male with severe constipation and obstruction secondary to distal colonic stricture that is most likely chronic diverticulitis vs. mass P) NPO NGT abx to OR this afternoon with Dr. Nicolas. Gagan Barlow DO VS,Fishbone, I+O VS, [place], I+O Laboratory Tests 11/25/20 06:04 Vital Signs Date Time Temp Pulse Resp B/P (MAP) Pulse Ox O2 Delivery O2 Flow Rate FiO2 11/25/20 06:00 96.9 86 18 129/69 (89) 94 Room Air 11/21/20 06:00 2.0 I&O- Last 24 Hours up to 6 AM 11/25/20 05:59 Intake Total 2175 ml Output Total 975 ml Balance 1200 ml WILFREDO BARLOW DO Nov 25, 2020 11:56
[2020-11-25] MEDS ORDERED: ePHEDrine SULFATE 25 MG/5 ML(5MG/ML) SYRINGE As Ordered ONE (13:20)
[2020-11-25] MEDS ORDERED: PHENYLephrine 500MCG 5ML (100MCG/ML) SYRINGE As Ordered ONE ×3 (13:20→16:38)
[2020-11-25] MEDS ORDERED: fentaNYL 100 MCG/2 ML INJECTION (J3010) As Ordered ONE (13:20)
[2020-11-25] MEDS ORDERED: dexameTHASONE 4 MG/ML 1ML VIAL (J1100 PER 1MG) As Ordered ONE (13:20)
[2020-11-25] MEDS ORDERED: ACETAMINOPHEN 1000MG 100ML IV BTL (OFIRMEV) (J0131 PER 10MG) As Ordered ONE (13:20)
[2020-11-25] MEDS ORDERED: ROCURONIUM BROMIDE 50 MG/5 ML VIAL As Ordered ONE ×2 (13:21→15:57)
[2020-11-25] MEDS ORDERED: propofoL 200 MG/20 ML VIAL As Ordered ONE (13:21)
[2020-11-25] MEDS ORDERED: SUGAMMADEX SODIUM 500 MG/5 ML VIAL (BRIDION) As Ordered ONE (13:21)
[2020-11-25] MEDS ORDERED: ONDANSETRON 4MG/2ML VIAL As Ordered ONE (13:21)
[2020-11-25] MEDS ORDERED: LIDOCAINE 2% 100MG/5ML SDV (FOR ANES.) As Ordered ONE (13:21)
[2020-11-25] MEDS ORDERED: BUPIVACAINE HCL 0.25% 30ML VIAL As Ordered ONE (13:33)
[2020-11-25] MEDS ORDERED: LIDOCAINE 1% SDV 30ML VIAL As Ordered ONE (13:33)
[2020-11-25] MEDS ORDERED: ETOMIDATE INJ 20MG/10ML VIAL As Ordered ONE (14:03)
[2020-11-25] MEDS ORDERED: CALCIUM CHLORIDE 10% 1 GM/10 ML SYR As Ordered ONE (15:11)
[2020-11-25] MEDS ORDERED: KETAMINE HCL 200 MG/20 ML VIAL As Ordered ONE (15:57)
--- NOTE | 2020-11-25 16:00 | IPNPDOC ---
Date Seen The patient was seen on 11/25/20. Progress Note SUBJECTIVE: Denies fever chills shortness of breath chest pain pressure tightness palpitations. Patient has bowel sounds but abdomen is still distended. He denies nausea vomiting PHYSICAL EXAMINATION: VITAL SIGNS: see below GENERAL APPEARANCE: No distress awake alert oriented to person and place answering questions appropriately no use of respiratory accessory muscles HEENT: Edentulous dry mm no carotid bruit NG tube No JVD no stridor no conversational dyspnea no stridor CARDIOVASCULAR:S1S2 RRR no JVD 2 out of 6 left lower sternal border systolic ejection murmur slight right ventricular heave LUNGS: Fine crackles at the left base diminished no tripod positioning or use of respiratory accessory muscles ABDOMEN: Unchanged from yesterday remains distended tympanic hyper active bowel sounds no rebound no guarding EXTREMITIES:no pitting edema, cyanosis, or clubbing LABORATORY DATA: See below. IMAGING: see below ECHOCARDIOGRAM: Normal sinus rhythm without intraventricular conduction disturbance. M-mode and 2-dimensional echocardiography was performed with pulse, continuous wave, color flow and tissue Doppler studies. Borderline concentric left ventricular hypertrophy with normal wall motion. Left atrial size upper limits of normal with grade 1 left ventricular (LV) diastolic dysfunction, but currently normal mean left atrial pressure. Mildly dilated right heart chambers with normal wall motion and doppler evidence of moderate pulmonary hypertension. His inferior vena cava (IVC) could not be well visualized to estimate his central venous pressure. Normal aortic root size. Mild aortic valvular sclerosis without stenosis or insufficiency. Degenerative changes of his mitral valvular apparatus without inflow tract obstruction, but moderate posteriorly directed insufficiency. Normal appearing tricuspid valve with at least moderate insufficiency. No apparent intracardiac masses or pericardial effusion. DD: Fabian Calderon MD, [facility] 11/24/20 0000 MICROBIOLOGY: Please see below. ASSESSMENT:89y/o M DNR/DNI admitted for abd pain: partial sbo rule out mass/question intussusception: Status post IV Zosyn but will worsening white count Therefore changed to meropenem renally dosed on 11/24/2020 Abdominal distention is unchanged despite supportive care with nasogastric tube AND N.p.o. General surgery Dr. Barlow and Dr. Nicolas consulted and will take the patient to the OR today New left lower lobe infiltrate questionable pneumonia Status post IV Zosyn Changed to IV meropenem on 11/24/2020 due to worsening white count Chest x-ray: No pleural effusion left lower lobe infiltrate. Acute kidney injury due to n.p.o. status and decreased oral intake with recent Lasix for fluid overload IV fluids Monitor urine output strict I's and O's Gross hematuria resolved Patient says he usually gets gross hematuria at home which resolves on its own. Hemoglobin stable hemodynamically stable Not on any antiplatelet or anticoagulants Transfuse if needed. Diverticulitis: npo, ivf, iv zosyn x 7days renally dosed. BPH / Urine retention hold meds for now while npo resume meds once po intake resumed gottlieb cath Aspiration Keep n.p.o. Swallow eval once abdominal issues have resolved CXR-NEW left lower lobe infiltrate no effusion Status post IV Zosyn currently on meropenem. Elevated BNP Echo shows moderate pulmonary hypertension with moderate tricuspid insufficiency Status post IV Lasix with improvement constipation defer to surgery for bowel regimen Diet: npo. dvt prophylaxis: compression stockings activity: as tolerated Code status: DNR/DNI VS, I&O, 24H, [facility] Vital Signs/I&O Vital Signs Date Time Temp Pulse Resp B/P (MAP) Pulse Ox O2 Delivery O2 Flow Rate FiO2 11/25/20 06:00 96.9 86 18 129/69 (89) 94 Room Air 11/21/20 06:00 2.0 I&O- Last 24 Hours up to 6 AM 11/25/20 06:00 Intake Total 1800 ml Output Total 1325 ml Balance 475 ml Laboratory Data 24H LABS Laboratory Tests 2 11/25/20 06:04: Immature Granulocyte % (Auto) 1.1, Neutrophils (%) (Auto) 70.0H, Lymphocytes (%) (Auto) 18.0L, Monocytes (%) (Auto) 7.7, Eosinophils (%) (Auto) 2.9, Basophils (%) (Auto) 0.3, Neutrophils # (Auto) 7.4, Lymphocytes # (Auto) 1.9, Monocytes # (Auto) 0.8, Eosinophils # (Auto) 0.3, Basophils # (Auto) 0.0, Nucleated Red Blood Cells % (auto) 0.0, Anion Gap 9, Glomerular Filtration Rate > 60.0, Calcium Level 8.3L, Magnesium Level 2.0 11/25/20 06:43: Bedside Glucose (Misc Panel) 101 11/25/20 12:19: Bedside Glucose (Misc Panel) 105 CBC/BMP Laboratory Tests 11/25/20 06:04 Microbiology Microbiology 11/23/20 Respiratory Virus Panel (PCR) ([facility]) - Final, Complete WILL REYNA MD Nov 25, 2020 15:54
[2020-11-25] MEDS ORDERED: PHENYLEPHRINE 10MG/ML 1ML VIAL (J2370 PER 1) As Ordered ONE ×3 (16:07→16:11)
[2020-11-25] MEDS ORDERED: HYDROmorphone HCL 2 MG/ML 1ML VIAL (J1170) As Ordered ONE (17:00)
[2020-11-25] MEDS ORDERED: LR 1,000 ML IV SCH (17:45)
[2020-11-25] MEDS ORDERED: ONDANSETRON 4MG/2ML VIAL IV PRN (17:45)
[2020-11-25] MEDS ORDERED: MEPERIDINE INJ 25 MG/ML VIAL (J2175) IV PRN (17:45)
[2020-11-25] MEDS ORDERED: fentaNYL 100 MCG/2 ML INJECTION (J3010) IV PRN (17:45)
[2020-11-25] MEDS: LR 1,000 ML IV SCH (17:59)
[2020-11-25] MEDS ORDERED: FAT EMULSION IV 250 ML IV SCH (18:00)
[2020-11-25] MEDS: AMINO AC/ELECTROLYTE/DEX/CALC 1,000 ML IV SCH (19:00)
[2020-11-25] MEDS: MORPHINE 4 MG/ML 1ML VIAL/SYRINGE (J2270) IV PRN (21:41)
[2020-11-26] VITALS (8 sets, daily range): BP systolic 89–104; BP diastolic 46–57; O2SAT 94–95
[2020-11-26] MEDS: MEROPENEM INJ 1 GM in IV 1 EA IV SCH ×2 (03:43→17:29)
[2020-11-26] MEDS: LR 1,000 ML IV SCH (05:19)
[2020-11-26] MEDS ORDERED: NS 500 ML IV ONE ×2 (06:00→12:40)
[2020-11-26 06:38] LABS: HEMATOCRIT 31.1 % (42.0-52.0); HEMOGLOBIN 9.6 g/dl (13.5-17.5); MEAN CORPUSCULAR HEMOGLOBIN 24.1 pg (27.0-33.0); MEAN CORPUSCULAR HGB CONC 30.9 g/dl (32.0-36.5); MEAN CORPUSCULAR VOLUME 78.1 fl (80.0-96.0); PLATELET COUNT, AUTOMATED 374 10^3/uL (150-450); RED BLOOD COUNT 3.98 10^6/uL (4.30-6.10); WHITE BLOOD COUNT 14.9 10^3/uL (4.0-10.0)
[2020-11-26 07:10] LABS: ANISOCYTOSIS 1+; ATYPICAL LYMPH 2 % (0-5); LYMPHOCYTES 15 % (16-44); MONOCYTES 1 % (0-5); NEUTROPHILS 69 % (28-66); OVALOCYTES 1+; PLATELET ESTIMATE NORMAL (NORMAL); POIKILOCYTOSIS 1+; POLYCHROMASIA 1+
[2020-11-26 07:11] LABS: BLOOD UREA NITROGEN 21 MG/DL (7-18); CALCIUM LEVEL 7.8 MG/DL (8.8-10.2); CARBON DIOXIDE LEVEL 23 MEQ/L (21-32); CHLORIDE LEVEL 106 MEQ/L (98-107); CREATININE FOR GFR 1.14 MG/DL (0.70-1.30); GLOMERULAR FILTRATION RATE > 60.0 (>35); GLUCOSE, FASTING 68 MG/DL (70-100); MAGNESIUM LEVEL 1.6 MG/DL (1.8-2.4); POTASSIUM SERUM 2.9 MEQ/L (3.5-5.1); SODIUM LEVEL 141 MEQ/L (136-145)
[2020-11-26] MEDS: KCL 10MEQ/100ML SWI (KRUN) 10 MEQ in IV 1 EA IV SCH ×5 (08:50→21:09)
[2020-11-26] MEDS: TAMSULOSIN 0.4 MG CAP PO SCH ×2 (08:51→20:48)
[2020-11-26] MEDS: ENOXAPARIN 40MG/0.4ML SYRINGE (J1650 PER 10MG) SC SCH (08:51)
[2020-11-26] MEDS: PANTOPRAZOLE 40MG VIAL (C9113 PER 1) IV SCH ×2 (08:51→20:48)
--- NOTE | 2020-11-26 09:04 | IPNPDOC ---
Text Note Date of Service The patient was seen on 11/26/20. NOTE General surgery. Dr. Barlow The patient is an 89-year-old male with history of chronic constipation, diverticular disease, right inguinal hernia repair 10/02, admitted to [facility] 11/19/2020, imaging indicated obstruction at the level of the sigmoid colon. Patient is status post open sigmoid resection with colostomy as per Dr. Nicolas/Dr. Barlow 11/25/2020. This morning the patient is sitting up in bed. Reports pain is controlled. Having output from ostomy, 600 mL last evening approximately 500 mL this morning. NG tube drainage 750 mL yesterday, 250 mL so far today. MALINDA drain 90 mL yesterday, 20 mL so far today. Afebrile. Heart rate 82, respiratory rate 17, blood pressure 104/49, the patient was noted to have blood pressure in the 90s over 50s last evening and received IV fluid bolus. 97% 2 L nasal cannula. NG tube in place Abdomen with midline dressing in place, MALINDA drain with serosanguineous drainage. Ostomy with liquid stool. Extremities. No edema WBC 14.9, this is compared with 10.6 yesterday. Hemoglobin 9.6 Potassium 2.9. Supplement ordered as per hospitalist this morning. Assessment/plan Status post open sigmoid resection with colostomy 11/25/2020. The patient is reviewed and examined as per Dr. Barlow this morning. N.p.o. NG tube IV fluids, IV antibiotic, potassium supplement as per hospitalist. Pathology pending. Monitor VS,Reubenbone, I+O VS, Reubenbone, I+O Laboratory Tests 11/26/20 06:13 Vital Signs Date Time Temp Pulse Resp B/P (MAP) Pulse Ox O2 Delivery O2 Flow Rate FiO2 11/26/20 06:00 97.5 82 17 104/49 (67) 97 Nasal Cannula 2.0 I&O- Last 24 Hours up to 6 AM 11/26/20 05:59 Intake Total 2650 ml Output Total 1895 ml Balance 755 ml Anitha Prakash Nov 26, 2020 09:04
--- NOTE | 2020-11-26 09:18 | RO ---
OPERATIVE NOTE DATE OF OPERATION: 11/25/2020 PREOPERATIVE DIAGNOSIS: Large bowel obstruction. POSTOPERATIVE DIAGNOSIS: Large bowel obstruction. PROCEDURE: Open exploratory laparotomy with sigmoid mass dissection, sigmoid removal and end colostomy. SURGEON: Pierce Barlow DO BANDOLEER STRAIGHTENER STAMPER: Jeremiah Nicolas MD who assisted with mobilization of the mass, closure of the abdominal wall and creation of the ostomy. ANESTHESIA: General. ESTIMATED BLOOD LOSS: 50 COMPLICATIONS: None. INDICATIONS FOR PROCEDURE: The patient is an 82-year-old male who presented with large bowel obstruction secondary to questionable diverticulitis versus mass. He initially was doing well with laxatives and was having copious bowel movements. However, he was still fully distended and full of stool. Repeat CT did show more concern for mass as opposed to diverticulitis. Therefore, recommendation was to proceed with exploratory surgery. Risks and benefits of the procedure not limited to but include bleeding, infection, hernias and damage to surrounding structures, need for further surgery were discussed in detail to the patient. Informed consent was obtained and procedure is planned. DESCRIPTION OF PROCEDURE: The patient was brought back to operating room 1. After sufficient sedation, the abdomen was sterilely prepped and draped. Next, a timeout was done to confirm proper patient and proper procedure. Following that, a 5 mm incision was made in the left lower quadrant. A Veress needle was inserted and the abdomen was inflated to 15 mmHg. Veress needle was then removed. A 5 mm OptiView port was used to gain access to the abdomen. Once the abdomen was entered, the scope was entered. The dilated loops of large and small bowel throughout the abdomen remained very difficult to see anything. I was able to see that there was what appeared to be a mass in the left lower quadrant as opposed to an inflammatory process. I was also able to see a small bowel adhesion in the right upper quadrant that appeared to be causing an internal hernia of the small intestine. I then placed another 5 mm port in the left mid-abdomen, went in laparoscopically with a scissors and was able to take down the adhesive band, freeing up the small bowel. However, there was still insufficient space to be able to do any type of procedure laparoscopically. The cameras were removed. Next, a 15 blade scalpel was used to make a large midline incision. Cautery was then used to extend the incision down into the fascia and open the abdominal wall. Once inside the abdomen, the appendix was identified. The appendix was dissected free using cautery, going through the mesoappendix. 3-0 Vicryl suture was used to tie off the appendiceal artery. Once that was completed, a purse-string suture with a 3-0 silk was completed around the base of the appendix. The appendix was then amputated and the NG tube was placed in through the cecum to decompress a portion of the large intestine. Once that was completed, the small bowel was also milked back inside of the cecum and aspirated out as much as possible. Following that, the purse-string was tied off. Next, starting in the left lower quadrant, dissection was completed around the mass. It was completely adhered to the abdominal wall. Dissection was done to separate the mass from the abdominal wall. The Enseal was then used to dissect through the mesentery of the large bowel. I was able to create a window distal to the mass. Using an [place] 60 green load stapler, I was able to transect the bowel at that point, dissected proximally, found the CARROLL. I was able to dissect around that and then transect that using an [place] white load vascular stapler. Once the dissection was completed superiorly enough to remove the mass and have enough length to create the ostomy, dissection laterally along the descending colon all the way up to the splenic flexure was also completed to allow for some mobilization. Once this was all completed, the mass was transected in the descending colon using the [place] stapler. A small incision was then made in the abdominal wall in the left mid-abdomen. The descending colon was brought out through that. The abdomen was washed out with multiple liters of warm saline. The abdominal wall was then closed with loop PDS and a row of matheus. Once that was completed, the ostomy was matured to the skin using interrupted 3-0 Vicryls. Once that was completed, the abdominal wall was cleaned and dried. Ostomy appliance was applied. The patient tolerated the procedure well and was sent to PACU in stable condition.
[2020-11-26] MEDS ORDERED: POTASSIUM CHLORIDE INJ 40 MEQ in LR 1,000 ML IV SCH (10:00)
[2020-11-26] MEDS ORDERED: MAG SULF 1GM/100ML (MAG RUN) 1 GM in IV 1 EA IV ONE (10:00)
[2020-11-26] MEDS: KETOROLAC 30 MG/ML 1ML VIAL IV PRN (13:21)
--- NOTE | 2020-11-26 14:10 | IPNPDOC ---
Subjective Date Seen The patient was seen on 11/26/20. Subjective Chief Complaint/HPI Complains of bothersome cough which he says has been present since he has been in the hospital and he is trouble in coughing up the phlegm because it hurts his abdomen and chest. Complains of abdominal pain. Has NG tube in place. Colostomy with large amounts of liquid stool Objective Physical Examination General Exam: Positive: Alert, Cooperative Eye Exam: Positive: PERRLA, Conjunctiva & lids normal, EOMI; Negative: Sclera icteric ENT Exam: Positive: Atraumatic, Mucous membr. moist/pink, Pharynx Normal Chest Exam: Positive: Other (Bilateral basal crackles); Negative: Rales, Rhonchi, Wheezing Heart Exam: Positive: Rate Normal, Regular Rhythm, Normal S1, Normal S2 Abdomen Exam: Positive: BS Hypoactive, Soft, Tenderness, Other (Central abdominal incision, a drain and colostomy) Extremity Exam: Negative: Clubbing, Cyanosis, Edema Assessment /Plan Assessment 89y/o M DNR/DNI with past medical history of BPH, urine retention, constipation, diverticular disease, skin ca, colon surgery 04/2012, hernia repair 1999 pres ented to the emergency room with nausea and vomiting and increasing abdominal distention with no flatus, and worsening generalized dull pain all over the abdomen. His Daughter calls every morning, and when he did not answer, she came over and found him in bed not feeling well. In the ER, ct abd/pelvis: ?intussussception. diverticulitis. Patient was initially managed consult for doubly with n.p.o. NG tube IV fluids, bowel meds however his abdominal distention did not improve so he was taken to the OR and found to have sigmoid colon mass. He had sigmoid colectomy and colostomy creation on 11/25/2020. Sigmoid mass causing large bowel obstruction, adhesion causing internal hernia formation and partial small bowel obstruction obstruction in the right upper quadrant Status post sigmoid colectomy and colostomy creation on 11/25/2020 Continue NG tube, n.p.o., IV fluids Continue Clinimix Will get PICC line Hypokalemia and hypomagnesemia Replaced New left lower lobe infiltrate questionable pneumonia Status post IV Zosyn Changed to IV meropenem on 11/24/2020 due to worsening white count Chest x-ray: No pleural effusion left lower lobe infiltrate. Acute kidney injury Resolved Continue IV fluids, having large amounts of liquid stools in the colostomy Monitor urine output strict I's and O's Gross hematuria resolved Patient says he usually gets gross hematuria at home which resolves on its own. Not on any antiplatelet or anticoagulants BPH / Urine retention hold meds for now while npo resume meds once po intake resumed gottlieb cath Possible dysphagia and aspiration Will get swallow eval once the NG tube is out Moderate pulmonary hypertension with moderate tricuspid insufficiency Plan/VTE VTE Prophylaxis Ordered?: Yes VS, I&O, 24H, Fishbone Vital Signs/I&O Vital Signs Date Time Temp Pulse Resp B/P (MAP) Pulse Ox O2 Delivery O2 Flow Rate FiO2 11/26/20 13:08 94 Room Air 11/26/20 10:00 98.2 94 17 98/52 (67) 11/26/20 06:00 2.0 I&O- Last 24 Hours up to 6 AM 11/26/20 06:00 Intake Total 2650 ml Output Total 1865 ml Balance 785 ml Laboratory Data 24H LABS Laboratory Tests 2 11/26/20 00:00: Bedside Glucose (Misc Panel) 80L 11/26/20 05:29: Bedside Glucose (Misc Panel) 71L 11/26/20 06:13: Neutrophils (%) (Auto) , Nucleated Red Blood Cells % (auto) 0.0, Neutrophils 69H, Band Neutrophils 13H, Lymphocytes (Manual) 15L, Monocytes (Manual) 1, Atypical Lymphocytes 2, Polychromasia 1+, Poikilocytosis 1+, Anisocytosis 1+, Ovalocytes 1+, Platelet Estimate NORMAL, Anion Gap 12, Glomerular Filtration Rate > 60.0, Calcium Level 7.8L, Magnesium Level 1.6L 11/26/20 11:50: Bedside Glucose (Misc Panel) 69L CBC/BMP Laboratory Tests 11/26/20 06:13 Microbiology Microbiology 11/23/20 Respiratory Virus Panel (PCR) ([facility]) - Final, Complete KURT MAYO MD Nov 26, 2020 14:10
[2020-11-26] MEDS ORDERED: LIDOCAINE 1% MDV 20ML VIAL As Ordered ONE (15:07)
[2020-11-26 17:37] LABS: CALCIUM LEVEL 7.8 MG/DL (8.8-10.2); CREATININE FOR GFR 1.22 MG/DL (0.70-1.30); GLOMERULAR FILTRATION RATE 59.7 (>35); POTASSIUM SERUM 2.5 MEQ/L (3.5-5.1)
[2020-11-26] MEDS ORDERED: NS 1,000 ML IV ONE (17:55)
--- NOTE | 2020-11-26 17:57 | REP ---
PROCEDURE NAME: PICC LINE INSERTION W/SITERITE CLINICAL INFORMATION: poor venous access. COMPARISON: None. PROCEDURE DESCRIPTION: The procedure was performed by BILLIE Garner, under the direct supervision of Dr. Arroyo. The risks and benefits of the procedure were explained to the patient and an informed consent was obtained both verbally and written. Directly prior to the start of the procedure a formal time-out was completed in the procedure room. The right lateral brachial vein was localized using ultrasound guidance. The skin was prepped and draped in sterile fashion. One mL of 1% lidocaine 10 mg/mL was used as a local anesthetic. Using ultrasound guidance the right lateral brachial vein was cannulated, and a 0.018 guidewire was inserted and advanced to the level of SVC using fluoroscopic guidance. The needle was removed and a 5.5 [place] dilator and peel-away sheath was inserted over the guidewire. A 5.5 [place] dual lumen catheter was cut to a length of 35 cm. The dilator was removed and the catheter was inserted over the guidewire with the tip ending at the level of the SVC. The peel-away sheath was removed and the catheter was flushed with heparinized saline as per hospital protocol. The catheter was affixed to the skin and a sterile dressing was applied. The patient tolerated the procedure well and there were no immediate complications. CONCLUSION: PICC line insertion into the right lateral brachial vein. 0.4 minutes of fluoroscopy time was utilized for this procedure. Some fluoroscopic images are performed with last image hold technology. These images require no additional radiation. <Electronically signed by Radha Chung > 11/26/20 0521 <Electronically signed by Adalberto Arroyo > 11/26/20 [id number]
[2020-11-26] MEDS ORDERED: FAT EMULSION IV 250 ML IV SCH (18:00)
[2020-11-26] MEDS: AMINO AC/ELECTROLYTE/DEX/CALC 1,000 ML IV SCH (18:36)
[2020-11-26] MEDS: KCL 40MEQ IN D5/NS 1000ML 1,000 ML IV SCH (20:49)
[2020-11-26] MEDS: SODIUM CHLORIDE 0.9% INJ 10 ML SYR IV PRN (23:40)
[2020-11-26 23:49] LABS: CALCIUM LEVEL 6.9 MG/DL (8.8-10.2); CREATININE FOR GFR 1.24 MG/DL (0.70-1.30); GLOMERULAR FILTRATION RATE 58.6 (>35)
[2020-11-27] MEDS: KCL 40MEQ IN D5/NS 1000ML 1,000 ML IV SCH ×2 (00:52→10:36)
[2020-11-27] MEDS: MEROPENEM INJ 1 GM in IV 1 EA IV SCH ×2 (02:18→15:38)
[2020-11-27] MEDS: SODIUM CHLORIDE 0.9% INJ 10 ML SYR IV SCH ×2 (05:26→18:04)
[2020-11-27 05:27] VITALS: BP 104/55
[2020-11-27] MEDS: AMINO AC/ELECTROLYTE/DEX/CALC 1,000 ML IV SCH (06:00)
--- NOTE | 2020-11-27 08:12 | IPNPDOC ---
Text Note Date of Service The patient was seen on 11/27/20. NOTE General surgery. Dr. Barlow The patient is an 89-year-old male with history of chronic constipation, diverticular disease, right inguinal hernia repair 10/02, admitted to [facility] 11/19/2020, imaging indicated obstruction at the level of the sigmoid colon. Patient is status post open sigmoid resection with colostomy as per Dr. Nicolas/Dr. Barlow 11/25/2020. This morning the patient is resting in bed. Reports pain is controlled. Having output from ostomy, brown liquid stool 1375 mL yesterday. 475 mL so far today. NG tube drainage 1300 mL yesterday. MALINDA drain 40 mL yesterday. Received albumin x2 units 11/25 IV fluid bolus last evening 99.4 this morning Heart rate 87, respiratory rate 16, 104/55. Systolic blood pressure 89-98 yesterday afternoon and overnight. 100% room air NG tube in place Abdomen with midline dressing in place, MALINDA drain with serosanguineous drainage. Ostomy with brown liquid, some leakage noted around appliance. Extremities. No edema Labs pending this AM Assessment/plan Status post open sigmoid resection with colostomy 11/25/2020. NPO NG tube LIS IV fluids, received bolus last evening related to hypotension. Status post albumin x2 units 11/25. PICC/TPN as per hospitalist. IV antibiotic as per hospitalist Pathology pending. Labs this morning pending. Continue to closely monitor Hypokalemia Status post supplement as per hospitalist. Labs this morning pending. BPH/urinary retention. Frausto catheter in place. VS,Fishbone, I+O VS, Fishbone, I+O Laboratory Tests 11/26/20 16:39 11/26/20 23:13 Vital Signs Date Time Temp Pulse Resp B/P (MAP) Pulse Ox O2 Delivery O2 Flow Rate FiO2 11/27/20 05:27 99.4 87 16 104/55 (71) 100 Room Air 11/26/20 06:00 2.0 I&O- Last 24 Hours up to 6 AM 11/27/20 05:59 Intake Total 2250 ml Output Total 3600 ml Balance -1350 ml Attending Note Attending Note Agree with summary by Anitha. Patient POD #2 from colectomy for obstruction. Path pending. Has had a large amount from ostomy. NG output high yesterday but decreased now. Patient pretty comfortable. Alert/oriented. Lungs with diffuse rhonchi. Cough not effective. NG with small amt clear fluid. Abd flat with bowel sounds. Midline stapled incision. Ostomy viable. Drain with little out. Will D/C NG tube. Keep NPO. Likely D/C drain in am. Potassium being replaced. On TPN. Anitha Prakash Nov 27, 2020 08:12 Reg Torres Nov 28, 2020 13:41
[2020-11-27] MEDS: PANTOPRAZOLE 40MG VIAL (C9113 PER 1) IV SCH ×2 (09:26→20:12)
[2020-11-27] MEDS: TAMSULOSIN 0.4 MG CAP PO SCH ×2 (09:26→20:12)
[2020-11-27] MEDS: ENOXAPARIN 40MG/0.4ML SYRINGE (J1650 PER 10MG) SC SCH (09:26)
[2020-11-27 09:47] LABS: BASO % 0.1 % (0.0-1.0); EOS % 0.3 % (0.0-3.0); HEMATOCRIT 26.4 % (42.0-52.0); LYMPH # 0.8 10^3/uL (1.5-5.0); LYMPH % 5.5 % (24.0-44.0); MEAN CORPUSCULAR HEMOGLOBIN 24.2 pg (27.0-33.0); MEAN CORPUSCULAR HGB CONC 30.3 g/dl (32.0-36.5); MEAN CORPUSCULAR VOLUME 79.8 fl (80.0-96.0); MONO # 0.5 10^3/uL (0.0-0.8); MONO % 3.3 % (2.0-8.0); NEUTROPHILS # 12.2 10^3/uL (1.5-8.5); NEUTROPHILS % 89.7 % (36.0-66.0); PLATELET COUNT, AUTOMATED 303 10^3/uL (150-450); RED BLOOD COUNT 3.31 10^6/uL (4.30-6.10); WHITE BLOOD COUNT 13.6 10^3/uL (4.0-10.0)
[2020-11-27 10:00] VITALS: BP 128/60
[2020-11-27 10:15] LABS: BLOOD UREA NITROGEN 23 MG/DL (7-18); CALCIUM LEVEL 7.7 MG/DL (8.8-10.2); CARBON DIOXIDE LEVEL 21 MEQ/L (21-32); CHLORIDE LEVEL 112 MEQ/L (98-107); CREATININE FOR GFR 1.21 MG/DL (0.70-1.30); GLOMERULAR FILTRATION RATE > 60.0 (>35); GLUCOSE, FASTING 316 MG/DL (70-100); MAGNESIUM LEVEL 2.2 MG/DL (1.8-2.4); POTASSIUM SERUM 3.8 MEQ/L (3.5-5.1); SODIUM LEVEL 141 MEQ/L (136-145)
--- NOTE | 2020-11-27 11:22 | IPNPDOC ---
Subjective Date Seen The patient was seen on 11/27/20. Subjective Chief Complaint/HPI Does not offer any complaints at this morning pain is controlled, there is large amounts of output from the colostomy bag as well as from the NG tube. There is swelling of the midline abdominal incision with leakage of stool from the stoma. No fever or chills. Very low urine output which I think is because of large amounts of diarrhea and NG tube last. Will increase IV fluid. Objective Physical Examination General Exam: Positive: Alert, Cooperative, No Acute Distress Eye Exam: Positive: PERRLA, Conjunctiva & lids normal, EOMI; Negative: Sclera icteric ENT Exam: Positive: Atraumatic, Mucous membr. moist/pink, Pharynx Normal Chest Exam: Positive: Rales, Other (Bilateral basal crackles and course breath sounds) Heart Exam: Positive: Rate Normal, Regular Rhythm, Normal S1, Normal S2 Abdomen Exam: Positive: Soft, Tenderness, Other (Central abdominal incision, a drain and colostomy, i could not appretiate any bowel sounds today. ) Extremity Exam: Negative: Clubbing, Cyanosis, Edema Assessment /Plan Assessment 89 y/o M DNR/DNI with past medical history of BPH, urine retention, constipation, diverticular disease, skin ca, colon surgery 04/2012, hernia repair 1999 presented to the emergency room with nausea and vomiting and increasing abdominal distention with no flatus, and worsening generalized dull pain all ov er the abdomen. His Daughter calls every morning, and when he did not answer, she came over and found him in bed not feeling well. In the ER, ct abd/pelvis: ?intussussception. diverticulitis. Patient was initially managed consult for doubly with n.p.o. NG tube IV fluids, bowel meds however his abdominal distention did not improve so he was taken to the OR and found to have sigmoid colon mass. He had sigmoid colectomy and colostomy creation on 11/25/2020. Sigmoid mass causing large bowel obstruction, adhesion causing internal hernia formation and partial small bowel obstruction obstruction in the right upper quadrant Status post sigmoid colectomy and colostomy creation on 11/25/2020 Continue NG tube, n.p.o., IV fluids will start TPN Hypokalemia and hypomagnesemia Replaced New left lower lobe infiltrate questionable pneumonia Status post IV Zosyn Changed to IV meropenem on 11/24/2020 due to worsening white count Chest x-ray: No pleural effusion left lower lobe infiltrate. continue meropenem. Acute kidney injury Resolved Still with very low urine output As having large amounts of liquid stools in the colostomy and large amounts of NG tube output. Continue IV fluid, will increase dose Monitor urine output strict I's and O's Gross hematuria resolved Patient says he usually gets gross hematuria at home which resolves on its own. Not on any antiplatelet or anticoagulants BPH / Urine retention hold meds for now while npo resume meds once po intake resumed gottlieb cath Possible dysphagia and aspiration Will get swallow eval once the NG tube is out Hypoglycemia Yesterday which is now resolved We will change dextrose to normal saline as the patient is being started on TPN Moderate pulmonary hypertension with moderate tricuspid insufficiency Plan/VTE VTE Prophylaxis Ordered?: Yes VS, I&O, 24H, Fishbone Vital Signs/I&O Vital Signs Date Time Temp Pulse Resp B/P (MAP) Pulse Ox O2 Delivery O2 Flow Rate FiO2 11/27/20 10:00 97.3 85 16 128/60 (82) 93 Room Air 11/26/20 06:00 2.0 I&O- Last 24 Hours up to 6 AM 11/27/20 06:00 Intake Total 3915 ml Output Total 3280 ml Balance 635 ml Laboratory Data 24H LABS Laboratory Tests 2 11/26/20 11:50: Bedside Glucose (Misc Panel) 69L 11/26/20 16:39: Anion Gap 12, Glomerular Filtration Rate 59.7, Calcium Level 7.8L, Magnesium Level 2.0 11/26/20 18:12: Bedside Glucose (Misc Panel) 64L 11/26/20 23:13: Anion Gap 8, Glomerular Filtration Rate 58.6, Calcium Level 6.9L 11/27/20 05:40: Bedside Glucose (Misc Panel) 163H 11/27/20 09:21: Immature Granulocyte % (Auto) 1.1, Neutrophils (%) (Auto) 89.7H, Lymphocytes (%) (Auto) 5.5L, Monocytes (%) (Auto) 3.3, Eosinophils (%) (Auto) 0.3, Basophils (%) (Auto) 0.1, Neutrophils # (Auto) 12.2H, Lymphocytes # (Auto) 0.8L, Monocytes # (Auto) 0.5, Eosinophils # (Auto) 0.0, Basophils # (Auto) 0.0, Nucleated Red Blood Cells % (auto) 0.0, Anion Gap 8, Glomerular Filtration Rate > 60.0, Calcium Level 7.7L, Magnesium Level 2.2 CBC/BMP Laboratory Tests 11/26/20 16:39 11/26/20 23:13 11/27/20 09:21 Microbiology Microbiology 11/23/20 Respiratory Virus Panel (PCR) ([facility]) - Final, Complete KURT MAYO MD Nov 27, 2020 11:22
[2020-11-27] MEDS ORDERED: KCL 40MEQ in NS 1000ML 1,000 ML IV SCH (12:00)
[2020-11-27 14:00] VITALS: BP 134/69
[2020-11-27 14:34] VITALS: O2SAT 95
[2020-11-27] MEDS ORDERED: LR 1,000 ML IV SCH (16:10)
[2020-11-27 18:00] VITALS: BP 132/62
[2020-11-27] MEDS ORDERED: [UNRECOGNIZED DRUG - MIXTURE] IV SCH ×4 (18:00)
[2020-11-27] MEDS ORDERED: MULTIVITAMIN -ADULT INJECTION 10 ML, CR/CU/SE/MN/ZN INJ 1 ML, POTASSIUM CHLORIDE INJ 83... IV SCH ×4 (18:00)
[2020-11-27] MEDS ORDERED: FAT EMULSION IV 250 ML IV SCH (18:00)
[2020-11-27] MEDS ORDERED: IPRATROPIUM 0.5MG/ALBUTEROL 2.5MG INH SOL UD 3ML (DUONEB) NEB PRN (19:55)
--- NOTE | 2020-11-27 20:02 | IPNPDOC ---
Text Note Date of Service The patient was seen on 11/27/20. NOTE Significant event. Patient seen at bedside after acute hypoxic event 88% on room air patient denies feeling short of breath complains of abdominal pain. Patient on 2 L nasal c annula 93 to 96%. Nonlabored breathing but notably congested. He uses Acapella and coarse rales throughout during auscultation. Abd dressing clean dry and intact liquid output from ostomy site. Patient appears emaciated and not hypervolemic however he is wet and there is murmur with his regular rhythm. Plan for chest x-ray for interval check of the left lower lobe infiltrate that was seen on the eighth. Will hold LR at present given rate of 200 mL/h. Continue TPN. Check BNP. Other concerns relate to gross hematuria-this was mentioned in dayshift note; patient denies trauma he is on Lovenox. Plan for UA and lab. Adjust care plan accordingly pending data will follow. WCTM VS,Fishbone, I+O VS, Fishbone, I+O Laboratory Tests 11/26/20 23:13 11/27/20 09:21 Vital Signs Date Time Temp Pulse Resp B/P (MAP) Pulse Ox O2 Delivery O2 Flow Rate FiO2 11/27/20 18:00 98.8 86 17 132/62 (85) 95 Room Air 11/26/20 06:00 2.0 I&O- Last 24 Hours up to 6 AM 11/27/20 06:00 Intake Total 3915 ml Output Total 3280 ml Balance 635 ml SUZI MARQUES NP Nov 27, 2020 20:02
[2020-11-27] MEDS: KETOROLAC 30 MG/ML 1ML VIAL IV PRN (20:12)
[2020-11-27 20:32] LABS: BASO % 0.1 % (0.0-1.0); EOS % 0.2 % (0.0-3.0); HEMATOCRIT 25.7 % (42.0-52.0); HEMOGLOBIN 8.3 g/dl (13.5-17.5); LYMPH # 0.7 10^3/uL (1.5-5.0); MEAN CORPUSCULAR HEMOGLOBIN 26.4 pg (27.0-33.0); MEAN CORPUSCULAR HGB CONC 32.3 g/dl (32.0-36.5); MEAN CORPUSCULAR VOLUME 81.8 fl (80.0-96.0); MONO # 0.4 10^3/uL (0.0-0.8); NEUTROPHILS # 13.5 10^3/uL (1.5-8.5); NEUTROPHILS % 90.4 % (36.0-66.0); PLATELET COUNT, AUTOMATED 320 10^3/uL (150-450); RED BLOOD COUNT 3.14 10^6/uL (4.30-6.10); WHITE BLOOD COUNT 14.9 10^3/uL (4.0-10.0)
[2020-11-27 20:42] LABS: APPEARANCE, URINE MANUAL TURBID (CLEAR); COLOR, URINE MANUAL RED (YELLOW)
[2020-11-27 20:48] LABS: PROTEIN, URINE MANUAL 2+ mg/dL (NEGATIVE)
[2020-11-27 20:49] LABS: BILIRUBIN, URINE MANUAL NEGATIVE (NEGATIVE); GLUCOSE, URINE (UA) MANUAL NEGATIVE (NEGATIVE); KETONE, URINE MANUAL NEGATIVE (NEGATIVE); NITRITE, URINE MANUAL TRACE (NEGATIVE); UROBILINOGEN, URINE MANUAL NORMAL (NORMAL)
[2020-11-27 20:50] LABS: BLOOD URINE MANUAL 3 (NEGATIVE); LEUKOCYTE ESTERASE, URINE MAN TRACE (NEGATIVE)
[2020-11-27 20:51] LABS: RBC, URINE TNTC /hpf (0-3); SQUAMOUS EPITHELIAL CELL URINE NONE SEEN /hpf (SMALL AMT)
[2020-11-27 20:52] LABS: BACTERIA, URINE SMALL AMOUNT; HYALINE CAST, URINE NONE SEEN /lpf (0-1); MUCUS, URINE SMALL AMOUNT (NEGATIVE)
[2020-11-27 21:00] VITALS: BP 139/70
--- NOTE | 2020-11-27 21:30 | REPVR ---
PROCEDURE INFORMATION: Exam: XR Chest Exam date and time: 11/27/2020 8:09 PM Age: 89 years old Clinical indication: Other: Hypoxia TECHNIQUE: Imaging protocol: XR of the chest. Views: 1 view. COMPARISON: CR PORTABLE CHEST X-RAY 11/24/2020 7:53 AM FINDINGS: Tubes, catheters and devices: Right-sided PICC line catheter with its tip in the proximal superior vena cava. Lungs: Retrocardiac opacification which may represent infiltrates/atelectasis. Pleural spaces: Unremarkable. No pleural effusion. No pneumothorax. Heart/Mediastinum: Cardiomegaly. Large hiatal hernia. Bones/joints: Unremarkable. IMPRESSION: Retrocardiac opacification which may represent atelectasis/infiltrates. Electronically signed by: Eliu Charles On 11/27/2020 21:30:13 PM
[2020-11-27 22:13] LABS: CALCIUM LEVEL 6.8 MG/DL (8.8-10.2); CREATININE FOR GFR 1.4 MG/DL (0.70-1.30); GLOMERULAR FILTRATION RATE 50.9 (>35)
[2020-11-28] VITALS (9 sets, daily range): BP systolic 114–131; BP diastolic 54–80; O2SAT 93
[2020-11-28] MEDS ORDERED: LevoFLOXacin IV 750 MG in IV 1 EA IV SCH ×2
[2020-11-28] MEDS ORDERED: LR 1,000 ML IV SCH (00:30)
[2020-11-28 00:41] LABS: VENOUS BASE EXCESS -6.2 (-2.0-2.0); VENOUS HCO3 19.3 MEQ/L (23.0-27.0); VENOUS O2 SATURATION 95.2 % (60.0-80.0); VENOUS PARTIAL PRESSURE CO2 37.8 mmHg (38.0-50.0); VENOUS PARTIAL PRESSURE O2 87.8 mmHg (30.0-50.0); VENOUS PH 7.325 UNITS (7.330-7.430); VENOUS STANDARD HCO3 19.3 MEQ/L; VENOUS TOTAL CO2 20.4 MEQ/L (24.0-28.0)
[2020-11-28] MEDS: MEROPENEM INJ 1 GM in IV 1 EA IV SCH ×2 (03:10→15:38)
[2020-11-28 04:12] LABS: CALCIUM LEVEL 7.6 MG/DL (8.8-10.2); CREATININE FOR GFR 1.39 MG/DL (0.70-1.30); GLOMERULAR FILTRATION RATE 51.3 (>35); POTASSIUM SERUM 2.6 MEQ/L (3.5-5.1)
[2020-11-28] MEDS: KETOROLAC 30 MG/ML 1ML VIAL IV PRN ×2 (06:35→12:59)
[2020-11-28] MEDS: SODIUM CHLORIDE 0.9% INJ 10 ML SYR IV SCH ×2 (06:35→18:19)
[2020-11-28 06:39] LABS: BASO % 0.1 % (0.0-1.0); EOS # 0.2 10^3/uL (0.0-0.5); EOS % 1.7 % (0.0-3.0); HEMATOCRIT 24.2 % (42.0-52.0); HEMOGLOBIN 7.4 g/dl (13.5-17.5); LYMPH # 1.1 10^3/uL (1.5-5.0); LYMPH % 7.8 % (24.0-44.0); MEAN CORPUSCULAR HEMOGLOBIN 24.1 pg (27.0-33.0); MEAN CORPUSCULAR HGB CONC 30.6 g/dl (32.0-36.5); MEAN CORPUSCULAR VOLUME 78.8 fl (80.0-96.0); MONO # 0.4 10^3/uL (0.0-0.8); MONO % 2.6 % (2.0-8.0); NEUTROPHILS # 11.6 10^3/uL (1.5-8.5); NEUTROPHILS % 86.5 % (36.0-66.0); PLATELET COUNT, AUTOMATED 268 10^3/uL (150-450); RED BLOOD COUNT 3.07 10^6/uL (4.30-6.10); WHITE BLOOD COUNT 13.4 10^3/uL (4.0-10.0)
[2020-11-28 06:56] LABS: C REACTIVE PROTEIN QUANTITATIV 18.5 MG/DL (0.00-0.30); CALCIUM LEVEL 7.4 MG/DL (8.8-10.2); CREATININE FOR GFR 1.3 MG/DL (0.70-1.30); GLOMERULAR FILTRATION RATE 55.5 (>35); POTASSIUM SERUM 2.6 MEQ/L (3.5-5.1)
--- NOTE | 2020-11-28 08:59 | IPNPDOC ---
Text Note Date of Service The patient was seen on 11/28/20. NOTE General surgery. Dr. Barlow The patient is an 89-year-old male with history of chronic constipation, diverticular disease, right inguinal hernia repair 10/02, admitted to [facility] 11/19/2020, imaging indicated obstruction at the level of the sigmoid colon. Patient is status post open sigmoid resection with colostomy as per Dr. Nicolas/Dr. Barlow 11/25/2020. This morning the patient is resting in bed, reports breathing is comfortable. Reports pain is controlled. Having output from ostomy, brown liquid stool 1575 mL yesterday. 400 mL so far today. NG tube removed yesterday. MALINDA drain 15 mL yesterday. Afebrile Heart rate 83, respiratory rate 18, 131/80. 96% 1 L nasal cannula Abdomen with midline dressing removed this morning by nursing, incision with matheus intact, there is a small amount of serosanguineous drainage from the lower aspect of the wound, MALINDA drain with small amount serosanguineous drainage. Ostomy with brown liquid, appliance is removed this morning, matheus are pulled away from the suture line on the medial aspect of the stoma. Extremities. No edema WBC 13.4, this is decreased from 14.9. Hemoglobin 7.4. Compared with 8.3 yesterday Assessment/plan Status post open sigmoid resection with colostomy 11/25/2020. The patient is reviewed and examined as per Dr. Torres this morning. The patient is noted to have some drainage from the lower aspect of the abdominal incision, continue to closely monitor. Continue with dry dressing daily. The patient's stoma is also noted as per Dr. Torres, the medial aspect appears to have some matheus pulling away from the suture line, continue to monitor. NG tube removed yesterday, trial of sips today IV fluids as per hospitalist PICC/TPN as per hospitalist. 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 PT/OT Continue to closely monitor Hypokalemia Status post supplement as per hospitalist. Labs this morning pending. BPH/urinary retention. Frausto catheter in place. VS,Fishbone, I+O VS, Fishbone, I+O Laboratory Tests 8/11/21 09:21 11/27/20 20:17 11/28/20 03:35 11/28/20 06:19 Vital Signs Date Time Temp Pulse Resp B/P (MAP) Pulse Ox O2 Delivery O2 Flow Rate FiO2 11/28/20 05:51 97.0 83 18 131/80 (97) 96 Nasal Cannula 1.0 I&O- Last 24 Hours up to 6 AM 11/28/20 06:00 Intake Total 3835 ml Output Total 2630 ml Balance 1205 ml Attending Note Attending Note POD#3. Ostomy appliance not fitting well, likely from abdominal fold. No N/V after NG out yesterday. Ostomy working well. Minimal out RLQ drain. Lungs much clearer today without rhonchi. Small amt pink fluid from incision below umbilicus. Probably just wound fluid. Will follow. Edge of stoma medially from skin edge in 2 cm area. Plan: remove drain. full liquids check wound in am - likely remove some matheus then. PT Anitha Prakash Nov 28, 2020 08:59 Reg Torres Nov 28, 2020 13:47
[2020-11-28] MEDS: KCL 10MEQ/100ML SWI (KRUN) 10 MEQ in IV 1 EA IV SCH ×8 (09:00→22:39)
[2020-11-28] MEDS: TAMSULOSIN 0.4 MG CAP PO SCH ×2 (10:08→21:20)
[2020-11-28] MEDS: PANTOPRAZOLE 40MG VIAL (C9113 PER 1) IV SCH ×2 (10:10→21:18)
[2020-11-28] MEDS: ENOXAPARIN 40MG/0.4ML SYRINGE (J1650 PER 10MG) SC SCH (10:10)
--- NOTE | 2020-11-28 12:17 | IPNPDOC ---
Subjective Date Seen The patient was seen on 11/28/20. Subjective Chief Complaint/HPI Does not offer any complaints this morning reports that his pain is controlled. No nausea or vomiting after removal of the NG tube no abdominal distention. Continues to have large amount of liquid stools in the colostomy bag. No fever or chills no shortness of breath or cough. He did have an episode of hypoxia last night with oxygen saturation dropping to 88% which was likely due to getting fluid overloaded with IV fluids have now been stopped. Objective Physical Examination General Exam: Positive: Alert, Cooperative, No Acute Distress Eye Exam: Positive: PERRLA, Conjunctiva & lids normal, EOMI; Negative: Sclera icteric ENT Exam: Positive: Atraumatic, Mucous membr. moist/pink, Pharynx Normal Chest Exam: Positive: Rales, Other (Bilateral basal crackles and course breath sounds) Heart Exam: Positive: Rate Normal, Regular Rhythm, Normal S1, Normal S2 Abdomen Exam: Positive: Soft, Tenderness, Other (Central abdominal incision, a drain and colostomy, bowel sounds present) Extremity Exam: Negative: Clubbing, Cyanosis, Edema Assessment /Plan Assessment 89 y/o M DNR/DNI with past medical history of BPH, urine retention, constipation, diverticular disease, skin ca, colon surgery 04/2012, hernia repair 1999 presented to the emergency room with nausea and vomiting and increasing abdominal distention with no flatus, and worsening generalized dull pain all over the abdomen. His Daughter calls every morning, and when he did not answer, she came over and found him in bed not feeling well. In the ER, ct abd/pelvis: ?intussussception. diverticulitis. Patient was initially managed consult for doubly with n.p.o. NG tube IV fluids, bowel meds however his abdominal distention did not improve so he was taken to the OR and found to have sigmoid colon mass. He had sigmoid colectomy and colostomy creation on 11/25/2020. 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 diet as per surgery, now on sips, NG tube removed. Colostomy still will large output. Had 1575 output in last 24 hours, 400 out ~now Continue TPN with 60 of potassium supplementation Hypokalemia and hypomagnesemia Replaced New left lower lobe infiltrate questionable pneumonia Status post IV Zosyn Changed to IV meropenem on 11/24/2020 due to worsening white count Acute kidney injury Resolved Still with very low urine output As having large amounts of liquid stools in the colostomy and large amounts of NG tube output. Continue IV fluid, will increase dose Monitor urine output strict I's and O's Gross hematuria Patient says he usually gets gross hematuria at home which resolves on its own. Not on any antiplatelet or anticoagulants Here likely aggravated by Frausto and trauma from pulling on for BPH / Urine retention hold meds for now while npo resume meds once po intake resumed Possible dysphagia and aspiration Swallow eval Hypoglycemia Resolved after starting TPN Moderate pulmonary hypertension with moderate tricuspid insufficiency Plan/VTE VTE Prophylaxis Ordered?: Yes VS, I&O, 24H, Fishbone Vital Signs/I&O Vital Signs Date Time Temp Pulse Resp B/P (MAP) Pulse Ox O2 Delivery O2 Flow Rate FiO2 11/28/20 07:35 97.9 84 24 129/62 (84) 96 Nasal Cannula 1.0 I&O- Last 24 Hours up to 6 AM 11/28/20 06:00 Intake Total 3835 ml Output Total 2630 ml Balance 1205 ml Laboratory Data 24H LABS Laboratory Tests 2 11/27/20 17:46: Bedside Glucose (Misc Panel) 112H 11/27/20 20:17: Immature Granulocyte % (Auto) 1.3, Neutrophils (%) (Auto) 90.4H, Lymphocytes (%) (Auto) 5.0L, Monocytes (%) (Auto) 3.0, Eosinophils (%) (Auto) 0.2, Basophils (%) (Auto) 0.1, Neutrophils # (Auto) 13.5H, Lymphocytes # (Auto) 0.7L, Monocytes # (Auto) 0.4, Eosinophils # (Auto) 0.0, Basophils # (Auto) 0.0, Nucleated Red Blood Cells % (auto) 0.0, Bedside Urine Color (LAB) REDH, Bedside Urine Appearance (LAB) TURBIDH, Bedside Urine pH (LAB) 6.0, Bedside Urine Specific [place] (LAB 1.020, Bedside Urine Protein (LAB) 2+H, Bedside Urine Glucose (UA) NEGATIVE, Bedside Urine Ketones (LAB) NEGATIVE, Bedside Urine Blood 3, Bedside Urine Nitrite (LAB) TRACEH, Bedside Urine Bilirubin (LAB) NEGATIVE, Bedside Urine Urobilinogen (LAB) NORMAL, Bedside Urine Leukocyte Esterase (L TRACEH, Urine Sediment Examination PERFORMED, Urine RBC TNTCH, Urine WBC 1-3, Urine S quamous Epithelial Cells NONE SEEN, Urine Bacteria SMALL AMOUNTH, Urine Hyaline Casts NONE SEEN, Urine Mucus SMALL AMOUNTH, Microscopic Urinalysis Comment UNSPUN, Anion Gap 4L, Glomerular Filtration Rate 50.9, Lactic Acid Level 0.8, Calcium Level 6.8L, [id number] Natriuretic Peptide [id number] 11/27/20 22:20: Bedside Glucose (Misc Panel) 142H 11/27/20 23:56: Bedside Glucose (Misc Panel) 135H 11/28/20 00:25: Blood Gas Bicarbonate Standard 19.3, Venous Blood pH 7.325L, Venous Blood Partial Pressure CO2 37.8L, Venous Blood Partial Pressure O2 87.8H, Venous Blood Total Carbon Dioxide 20.4L, Venous Blood HCO3 19.3L, Venous Blood Oxygen S aturation 95.2H, Venous Blood Base Excess -6.2L 11/28/20 03:35: Anion Gap 8, Glomerular Filtration Rate 51.3, Calcium Level 7.6L 11/28/20 06:19: Anion Gap 5L, Glomerular Filtration Rate 55.5, Calcium Level 7.4L, Immature Granulocyte % (Auto) 1.3, Neutrophils (%) (Auto) 86.5H, Lymphocytes (%) (Auto) 7.8L, Monocytes (%) (Auto) 2.6, Eosinophils (%) (Auto) 1.7, Basophils (%) (Auto) 0.1, Neutrophils # (Auto) 11.6H, Lymphocytes # (Auto) 1.1L, Monocytes # (Auto) 0.4, Eosinophils # (Auto) 0.2, Basophils # (Auto) 0.0, Nucleated Red Blood Cells % (auto) 0.0, Lactic Acid Level 0.9, C-Reactive Protein, Quantitative 18.50H 11/28/20 11:56: Bedside Glucose (Misc Panel) 137H CBC/BMP Laboratory Tests 11/27/20 20:17 11/28/20 03:35 11/28/20 06:19 Microbiology Microbiology 11/23/20 Respiratory Virus Panel (PCR) ([facility]) - Final, Complete KURT MAYO MD Nov 28, 2020 12:17
[2020-11-28 16:02] LABS: CALCIUM LEVEL 7.7 MG/DL (8.8-10.2); CREATININE FOR GFR 1.26 MG/DL (0.70-1.30); GLOMERULAR FILTRATION RATE 57.5 (>35)
[2020-11-28] MEDS ORDERED: POTASSIUM CHLORIDE IV SCH (18:00)
[2020-11-28] MEDS ORDERED: CALC IV SCH (18:00)
[2020-11-28] MEDS ORDERED: DEX IV SCH (18:00)
[2020-11-28] MEDS ORDERED: ELECTROLYTE IV SCH (18:00)
[2020-11-28] MEDS ORDERED: AMINO AC IV SCH (18:00)
[2020-11-28] MEDS ORDERED: FAT EMULSION IV 250 ML IV SCH (18:00)
[2020-11-28] MEDS: SODIUM CHLORIDE 0.9% INJ 10 ML SYR IV PRN (23:56)
[2020-11-29 02:00] VITALS: BP 148/77
[2020-11-29] MEDS: MEROPENEM INJ 1 GM in IV 1 EA IV SCH ×2 (02:20→14:54)
[2020-11-29] MEDS: SODIUM CHLORIDE 0.9% INJ 10 ML SYR IV PRN ×2 (02:20→03:17)
[2020-11-29] MEDS: SODIUM CHLORIDE 0.9% INJ 10 ML SYR IV SCH ×2 (05:45→17:47)
[2020-11-29 06:09] VITALS: BP 147/76
[2020-11-29 06:12] LABS: BASO % 0.2 % (0.0-1.0); EOS # 0.3 10^3/uL (0.0-0.5); HEMATOCRIT 23.8 % (42.0-52.0); HEMOGLOBIN 7.1 g/dl (13.5-17.5); LYMPH # 1.1 10^3/uL (1.5-5.0); LYMPH % 12.5 % (24.0-44.0); MEAN CORPUSCULAR HGB CONC 29.8 g/dl (32.0-36.5); MEAN CORPUSCULAR VOLUME 80.4 fl (80.0-96.0); MONO # 0.3 10^3/uL (0.0-0.8); NEUTROPHILS # 7.3 10^3/uL (1.5-8.5); NEUTROPHILS % 79.5 % (36.0-66.0); PLATELET COUNT, AUTOMATED 250 10^3/uL (150-450); RED BLOOD COUNT 2.96 10^6/uL (4.30-6.10); WHITE BLOOD COUNT 9.1 10^3/uL (4.0-10.0)
[2020-11-29 06:39] LABS: BLOOD UREA NITROGEN 31 MG/DL (7-18); CALCIUM LEVEL 7.7 MG/DL (8.8-10.2); CARBON DIOXIDE LEVEL 18 MEQ/L (21-32); CHLORIDE LEVEL 120 MEQ/L (98-107); CREATININE FOR GFR 1.04 MG/DL (0.70-1.30); GLOMERULAR FILTRATION RATE > 60.0 (>35); GLUCOSE, FASTING 97 MG/DL (70-100); POTASSIUM SERUM 2.9 MEQ/L (3.5-5.1); SODIUM LEVEL 146 MEQ/L (136-145)
[2020-11-29] MEDS ORDERED: POTASSIUM CHLORIDE 10 MEQ SR TABLET PO ONE (07:15)
[2020-11-29 09:00] VITALS: O2SAT 95
[2020-11-29 10:00] VITALS: BP 147/77
[2020-11-29] MEDS: TAMSULOSIN 0.4 MG CAP PO SCH ×2 (10:20→20:36)
[2020-11-29] MEDS: ENOXAPARIN 40MG/0.4ML SYRINGE (J1650 PER 10MG) SC SCH (10:21)
[2020-11-29] MEDS: KCL 10MEQ/100ML SWI (KRUN) 10 MEQ in IV 1 EA IV SCH ×4 (10:21→12:26)
[2020-11-29] MEDS: PANTOPRAZOLE 40MG VIAL (C9113 PER 1) IV SCH (10:22)
--- NOTE | 2020-11-29 12:12 | IPNPDOC ---
Subjective Date Seen The patient was seen on 11/29/20. Subjective Chief Complaint/HPI Hematuria resolved. Urine output better. Tolerating full liquids. Abdominal pain controlled. Objective Physical Examination General Exam: Positive: Alert, Cooperative, No Acute Distress Eye Exam: Positive: PERRLA, Conjunctiva & lids normal, EOMI; Negative: Sclera icteric ENT Exam: Positive: Atraumatic, Mucous membr. moist/pink, Pharynx Normal Chest Exam: Positive: Diminished (At the bases), Other (Bilateral basal crackles and course breath sounds) Heart Exam: Positive: Rate Normal, Regular Rhythm, Normal S1, Normal S2 Abdomen Exam: Positive: Soft, Tenderness, Other (Central abdominal incision and colostomy, bowel sounds present) Extremity Exam: Negative: Clubbing, Cyanosis, Edema Assessment /Plan Assessment 89 y/o M DNR/DNI with past medical history of BPH, urine retention, constipation, diverticular disease, skin ca, colon surgery 04/2012, hernia repair 1999 presented to the emergency room with nausea and vomiting and increasing abdominal distention with no flatus, and worsening generalized dull pain all over the abdomen. His Daughter calls every morning, and when he did not answer, she came over and found him in bed not feeling well. In the ER, ct abd/pelvis: ?intussussception. diverticulitis. Patient was initially managed consult for doubly with n.p.o. NG tube IV fluids, bowel meds however his abdominal distention did not improve so he was taken to the OR and found to have sigmoid colon mass. He had sigmoid colectomy and colostomy creation on 11/25/2020. 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 Tolerating full liquids, will DC TPN Colostomy output is slowing down Hypokalemia and hypomagnesemia Replaced New left lower lobe infiltrate questionable pneumonia Status post IV Zosyn Changed to IV meropenem on 11/24/2020 due to worsening white count. Will give 7 days treatment. Acute kidney injury Resolved Gross hematuria with clots causing blockage of gottlieb. Patient says he usually gets gross hematuria at home which resolves on its own. Not on any antiplatelet or anticoagulants Here likely aggravated by Gottlieb and trauma from pulling on it. There seemed to be some tissue mixed with clot which was sent to pathology, did not show any tissue other than clots and blood. BPH / Urine retention /Intermittent hematuria Continue flomax. Possible dysphagia and aspiration Continue speech therapy Moderate pulmonary hypertension with moderate tricuspid insufficiency Plan/VTE VTE Prophylaxis Ordered?: Yes VS, I&O, 24H, Fishbone Vital Signs/I&O Vital Signs Date Time Temp Pulse Resp B/P (MAP) Pulse Ox O2 Delivery O2 Flow Rate FiO2 11/29/20 06:09 97.5 78 18 147/76 (99) 95 11/28/20 23:11 Room Air 11/28/20 07:35 1.0 I&O- Last 24 Hours up to 6 AM 11/29/20 06:00 Intake Total 1935 ml Output Total 2320 ml Balance -385 ml Laboratory Data 24H LABS Laboratory Tests 2 11/28/20 11:56: Bedside Glucose (Misc Panel) 137H 11/28/20 15:24: Anion Gap 8, Glomerular Filtration Rate 57.5, Calcium Level 7.7L, Magnesium Level 2.0 11/28/20 17:10: Bedside Glucose (Misc Panel) 115H 11/28/20 23:35: Bedside Glucose (Misc Panel) 115H 11/29/20 05:46: Anion Gap 8, Glomerular Filtration Rate > 60.0, Calcium Level 7.7L 11/29/20 05:47: Immature Granulocyte % (Auto) 1.8, Neutrophils (%) (Auto) 79.5H, Lymphocytes (%) (Auto) 12.5L, Monocytes (%) (Auto) 3.0, Eosinophils (%) (Auto) 3.0, Basophils (%) (Auto) 0.2, Neutrophils # (Auto) 7.3, Lymphocytes # (Auto) 1.1L, Monocytes # (Auto) 0.3, Eosinophils # (Auto) 0.3, Basophils # (Auto) 0.0, Nucleated Red Blood Cells % (auto) 0.0 CBC/BMP Laboratory Tests 11/28/20 15:24 11/29/20 05:46 11/29/20 05:47 Microbiology Microbiology 11/23/20 Respiratory Virus Panel (PCR) ([facility]) - Final, Complete KURT MAYO MD Nov 29, 2020 08:16
[2020-11-29 14:00] VITALS: BP 116/70
[2020-11-29 16:33] LABS: BLOOD UREA NITROGEN 28 MG/DL (7-18); CALCIUM LEVEL 7.2 MG/DL (8.8-10.2); CARBON DIOXIDE LEVEL 18 MEQ/L (21-32); CHLORIDE LEVEL 122 MEQ/L (98-107); CREATININE FOR GFR 0.83 MG/DL (0.70-1.30); GLOMERULAR FILTRATION RATE > 60.0 (>35); GLUCOSE, FASTING 97 MG/DL (70-100); POTASSIUM SERUM 3.4 MEQ/L (3.5-5.1); SODIUM LEVEL 150 MEQ/L (136-145)
[2020-11-29] MEDS ORDERED: FAT EMULSION IV 250 ML IV SCH (18:00)
[2020-11-29] MEDS ORDERED: AMINO AC/ELECTROLYTE/DEX/CALC 2,000 ML IV SCH (18:00)
[2020-11-29 20:00] VITALS: BP 135/68
[2020-11-29] MEDS: POTASSIUM CHLORIDE INJ 40 MEQ in D5W 1,000 ML IV SCH (20:18)
[2020-11-29] MEDS: KETOROLAC 30 MG/ML 1ML VIAL IV PRN (20:18)
[2020-11-29] MEDS: PANTOPRAZOLE 40MG TAB (PROTONIX) PO SCH (20:36)
[2020-11-30 02:00] VITALS: BP 147/72
[2020-11-30] MEDS: MEROPENEM INJ 1 GM in IV 1 EA IV SCH ×2 (02:27→15:59)
[2020-11-30] MEDS: SODIUM CHLORIDE 0.9% INJ 10 ML SYR IV SCH ×2 (05:33→18:53)
[2020-11-30] MEDS: POTASSIUM CHLORIDE INJ 40 MEQ in D5W 1,000 ML IV SCH (05:33)
[2020-11-30 06:00] VITALS: BP 160/75
[2020-11-30 06:13] LABS: BASO % 0.4 % (0.0-1.0); EOS # 0.4 10^3/uL (0.0-0.5); EOS % 5.3 % (0.0-3.0); HEMATOCRIT 23.8 % (42.0-52.0); HEMOGLOBIN 7.2 g/dl (13.5-17.5); LYMPH # 1.3 10^3/uL (1.5-5.0); LYMPH % 15.5 % (24.0-44.0); MEAN CORPUSCULAR HEMOGLOBIN 23.9 pg (27.0-33.0); MEAN CORPUSCULAR HGB CONC 30.3 g/dl (32.0-36.5); MEAN CORPUSCULAR VOLUME 79.1 fl (80.0-96.0); MONO # 0.5 10^3/uL (0.0-0.8); MONO % 5.9 % (2.0-8.0); NEUTROPHILS # 5.9 10^3/uL (1.5-8.5); NEUTROPHILS % 71.1 % (36.0-66.0); PLATELET COUNT, AUTOMATED 246 10^3/uL (150-450); RED BLOOD COUNT 3.01 10^6/uL (4.30-6.10); WHITE BLOOD COUNT 8.3 10^3/uL (4.0-10.0)
[2020-11-30 06:34] LABS: BLOOD UREA NITROGEN 29 MG/DL (7-18); CALCIUM LEVEL 7.9 MG/DL (8.8-10.2); CARBON DIOXIDE LEVEL 17 MEQ/L (21-32); CHLORIDE LEVEL 118 MEQ/L (98-107); CREATININE FOR GFR 0.97 MG/DL (0.70-1.30); GLOMERULAR FILTRATION RATE > 60.0 (>35); GLUCOSE, FASTING 114 MG/DL (70-100); POTASSIUM SERUM 3.2 MEQ/L (3.5-5.1); SODIUM LEVEL 143 MEQ/L (136-145)
[2020-11-30] MEDS ORDERED: POTASSIUM CHLORIDE 10 MEQ SR TABLET PO ONE (06:55)
[2020-11-30 10:00] VITALS: BP 145/73
[2020-11-30] MEDS: ENOXAPARIN 40MG/0.4ML SYRINGE (J1650 PER 10MG) SC SCH (10:50)
[2020-11-30] MEDS: TAMSULOSIN 0.4 MG CAP PO SCH ×2 (10:50→21:40)
[2020-11-30] MEDS: PANTOPRAZOLE 40MG TAB (PROTONIX) PO SCH ×2 (10:50→21:40)
[2020-11-30] MEDS: POTASSIUM CHLORIDE 10 MEQ SR TABLET PO SCH (10:50)
[2020-11-30] MEDS: KETOROLAC 30 MG/ML 1ML VIAL IV PRN ×2 (10:55→21:43)
[2020-11-30] MEDS: SODIUM CHLORIDE 0.9% INJ 10 ML SYR IV PRN (11:06)
--- NOTE | 2020-11-30 13:37 | IPNPDOC ---
Subjective Date Seen The patient was seen on 11/30/20. Subjective Chief Complaint/HPI Continues to have a large amounts of watery output through the colostomy. Pain is controlled. Patient is tolerating regular diet though he is intake is very small. No fever or chills Objective Physical Examination General Exam: Positive: Alert, Cooperative, No Acute Distress Eye Exam: Positive: PERRLA, Conjunctiva & lids normal, EOMI; Negative: Sclera icteric ENT Exam: Positive: Atraumatic, Mucous membr. moist/pink, Pharynx Normal Chest Exam: Positive: Diminished (At the bases), Other (Bilateral basal crackles and course breath sounds) Heart Exam: Positive: Rate Normal, Regular Rhythm, Normal S1, Normal S2 Abdomen Exam: Positive: Soft, Tenderness, Other (Central abdominal incision and colostomy, bowel sounds present) Extremity Exam: Negative: Clubbing, Cyanosis, Edema Assessment /Plan Assessment 89 y/o M DNR/DNI with past medical history of BPH, urine retention, constipation, diverticular disease, skin ca, colon surgery 04/2012, hernia repair 1999 presented to the emergency room with nausea and vomiting and increasing abdominal distention with no flatus, and worsening generalized dull pain all over the abdomen. His Daughter calls every morning, and when he did not answer, she came over and found him in bed not feeling well. In the ER, ct abd/pelvis: ?intussussception. diverticulitis. Patient was initially managed consult for doubly with n.p.o. NG tube IV fluids, bowel meds however his abdominal distent ion did not improve so he was taken to the OR and found to have sigmoid colon mass. He had sigmoid colectomy and colostomy creation on 11/25/2020. 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 Still large amounts of Colostomy output watery causing soiling of the midline laparotomy incision. Started on regular diet but still very poor oral intake. So will continue TPN. Hypokalemia and hypomagnesemia Replaced Hypernatremia improved with dextrose. Acute on chronic anemia Likely due to dilution from postoperative fluid resuscitation, hematuria and also some amount of blood loss during surgery. No overt GI bleeding at this time Hemoglobin stable at 7.2 We will transfuse if drops below 7. New left lower lobe infiltrate questionable pneumonia Status post IV Zosyn Changed to IV meropenem on 11/24/2020 due to worsening white count. Will give 7 days treatment. Acute kidney injury Resolved Gross hematuria with clots causing blockage of gottlieb. Patient says he usually gets gross hematuria at home which resolves on its own. Not on any antiplatelet or anticoagulants Here likely aggravated by Gottlieb and trauma from pulling on it. There seemed to be some tissue mixed with clot which was sent to pathology, did not show any tissue other than clots and blood. will start on CBI as continues to have clots which was blocking the cath again. BPH / Urine retention /Intermittent hematuria Continue flomax. Possible dysphagia and aspiration Continue speech therapy Moderate pulmonary hypertension with moderate tricuspid insufficiency Plan/VTE VTE Prophylaxis Ordered?: Yes VS, I&O, 24H, Fishbone Vital Signs/I&O Vital Signs Date Time Temp Pulse Resp B/P (MAP) Pulse Ox O2 Delivery O2 Flow Rate FiO2 11/30/20 06:00 97.6 67 21 160/75 (103) 96 Room Air 11/28/20 07:35 1.0 I&O- Last 24 Hours up to 6 AM 11/30/20 06:00 Intake Total 2080 ml Output Total 1850 ml Balance 230 ml Laboratory Data 24H LABS Laboratory Tests 2 11/29/20 15:45: Anion Gap 10, Glomerular Filtration Rate > 60.0, Calcium Level 7.2L 11/29/20 17:40: Bedside Glucose (Misc Panel) 108 11/30/20 00:47: Bedside Glucose (Misc Panel) 117H 11/30/20 05:44: Anion Gap 8, Glomerular Filtration Rate > 60.0, Calcium Level 7.9L, Immature Granulocyte % (Auto) 1.8, Neutrophils (%) (Auto) 71.1H, Lymphocytes (%) (Auto) 15.5L, Monocytes (%) (Auto) 5.9, Eosinophils (%) (Auto) 5.3H, Basophils (%) (Auto) 0.4, Neutrophils # (Auto) 5.9, Lymphocytes # (Auto) 1.3L, Monocytes # (Auto) 0.5, Eosinophils # (Auto) 0.4, Basophils # (Auto) 0.0, Nucleated Red Blood Cells % (auto) 0.0 11/30/20 12:08: Bedside Glucose (Misc Panel) 95 CBC/BMP Laboratory Tests 11/29/20 15:45 11/30/20 05:44 Microbiology Microbiology 11/23/20 Respiratory Virus Panel (PCR) (JAY) - Final, Complete KURT MAYO MD Nov 30, 2020 13:37
--- NOTE | 2020-11-30 13:47 | IPN ---
PROGRESS NOTE DATE: 11/29/2020 HISTORY: The patient is an 89-year-old man now four days postop from resection of an obstructing sigmoid mass which proved to be colon cancer. He has an end colostomy which has been draining well. He has been advanced to a regular diet and is tolerating this acceptably but also remains on TPN. Vital signs show the patient has been afebrile over the past 24 hours. His pulse has been running in the 70s to low 90s. Blood pressure is good with acceptable systolic pressures and his room air pulse oximetry is in the mid 90s. Intake and output shows that yesterday he had 2400 ccs in with 1100 ccs out. He had 200 ccs of urine recorded with 900 from the ostomy. He had 20 ccs out of his drain before it was removed. PHYSICAL EXAM: Patient is sitting up in a recliner at the bedside when I came to see him. He is alert and seems oriented. He denies any significant pain currently. Skin is warm and dry. Heart exam shows a regular rhythm. Lungs are generally clear with good breath sounds bilaterally. The abdomen is flat. His ostomy appliance still is having some leakage around the wafer but it seems less today. The ostomy itself appears healthy. His midline incision has a small amount of pinkish drainage from the upper portion of the infraumbilical half of the incision. He has multiple matheus quite close together in this area. The abdomen is soft without significant undue tenderness. Calves are without edema. Laboratory studies today show a white count of 9 with a hemoglobin of 7, hematocrit 24 and a platelet count of 250,000. Differential shows 80% neutrophils and 12% lymphocytes. Chemistry profile shows a sodium of 146, potassium 2.9, chloride 120, CO2 of 18, BUN 31, creatinine 1.0 and a glucose of 97. IMPRESSION: Patient continues to remain stable. He appears to be gaining a little strength. His diet has improved I think. He appears to have cleared out any residual stool and is having more normal appearing colostomy output. He continues to have some blood in his urine. There is a small amount of drainage still from his midline incision. His potassium remains low despite attempts at repletion. PLAN: Patient will continue on his regular diet. Once he is taking his diet adequately, we will be able to discontinue his TPN. The Hospitalist has been working toward addressing the potassium deficiency and has now started some additional oral potassium chloride which is certainly reasonable. MTDD
--- NOTE | 2020-11-30 13:52 | IPN ---
PROGRESS NOTE DATE: 11/30/2020 HISTORY: Patient is now postop day #5 from a laparoscopic converted to open sigmoid colectomy for an obstructing cancer. He has an end colostomy which is functioning well and he is now on a regular diet and tolerating it apparently well. He remains on his TPN. Vital signs shows that he has been afebrile over the past 24 hours. His pulse is in the 60s to 80. Blood pressure is good and his room air pulse oximetry is normal. Intake and output shows that yesterday he had 2300 ccs in with 2900 ccs out. PHYSICAL EXAM: Patient is sitting up in bed watching the news. He is alert and pleasant. Skin is warm and dry. He continues to have a cough intermittently but reports he is not producing much in the way of sputum. Heart exam shows a regular rhythm. The abdomen is flat. His ostomy bag is about half full of liquid stool. The stoma itself appears pink and viable. His midline incision is draining some pinkish fluid from the mid to lower half of the wound. The wound is partially covered by the ostomy wafer. His drain site on the right seems to have dried up. Laboratory studies today show a white count of 8, hemoglobin 7, hematocrit 24, platelet count 246,000. Differential count shows 71% neutrophils, 16% lymphocytes and 6% monocytes. Chemistry profile today shows a sodium of 143, potassium 3.2, chloride 118, CO2 17, BUN 29, creatinine 0.97, glucose 114. IMPRESSION: Patient is now postop day #5 from his surgery and appears to be doing overall fairly well. He is tolerating a regular diet and his ostomy is functioning well. His white count is normal with a nearly normal differential. He has continued to have some issues with lower potassiums but these seem to be improving now. He has some drainage along the lower mid portion of his wound which I have been following. There is no sign of redness or infection of the wound otherwise. He remains on antibiotics per the Hospitalist and I am leaving them to determine the need for continuance. PLAN: I removed several of the patient's matheus in the area where it has been draining so that if this represents a subcutaneous collection it will drain better. We will follow this. He will need to work with Physical Therapy to try to regain some strength. ROSY
[2020-11-30 14:00] VITALS: BP 140/70
[2020-11-30 18:00] VITALS: BP 154/74
[2020-11-30] MEDS ORDERED: POTASSIUM CHLORIDE INJ 66.7 MEQ in AMINO AC/ELECTROLYTE/DEX/CALC 2,000 ML IV SCH (18:00)
[2020-11-30] MEDS ORDERED: FAT EMULSION IV 250 ML IV SCH (18:00)
[2020-11-30 19:19] LABS: BLOOD UREA NITROGEN 31 MG/DL (7-18); CALCIUM LEVEL 7.6 MG/DL (8.8-10.2); CARBON DIOXIDE LEVEL 18 MEQ/L (21-32); CHLORIDE LEVEL 117 MEQ/L (98-107); CREATININE FOR GFR 0.99 MG/DL (0.70-1.30); GLOMERULAR FILTRATION RATE > 60.0 (>35); GLUCOSE, FASTING 110 MG/DL (70-100); MAGNESIUM LEVEL 1.6 MG/DL (1.8-2.4); POTASSIUM SERUM 3.5 MEQ/L (3.5-5.1); SODIUM LEVEL 142 MEQ/L (136-145)
[2020-11-30 22:00] VITALS: BP 119/59
[2020-12-01 02:00] VITALS: BP 138/68
[2020-12-01] MEDS: MEROPENEM INJ 1 GM in IV 1 EA IV SCH ×2 (03:18→15:54)
[2020-12-01] MEDS: SODIUM CHLORIDE 0.9% INJ 10 ML SYR IV SCH ×2 (05:37→17:21)
[2020-12-01 06:00] VITALS: BP 140/67
[2020-12-01 06:38] LABS: BASO % 0.3 % (0.0-1.0); EOS # 0.3 10^3/uL (0.0-0.5); EOS % 3.3 % (0.0-3.0); HEMATOCRIT 25.3 % (42.0-52.0); HEMOGLOBIN 7.7 g/dl (13.5-17.5); LYMPH # 1.4 10^3/uL (1.5-5.0); LYMPH % 13.1 % (24.0-44.0); MEAN CORPUSCULAR HEMOGLOBIN 24.4 pg (27.0-33.0); MEAN CORPUSCULAR HGB CONC 30.4 g/dl (32.0-36.5); MEAN CORPUSCULAR VOLUME 80.3 fl (80.0-96.0); MONO # 0.6 10^3/uL (0.0-0.8); MONO % 5.8 % (2.0-8.0); NEUTROPHILS # 7.8 10^3/uL (1.5-8.5); NEUTROPHILS % 75.8 % (36.0-66.0); PLATELET COUNT, AUTOMATED 291 10^3/uL (150-450); RED BLOOD COUNT 3.15 10^6/uL (4.30-6.10); WHITE BLOOD COUNT 10.4 10^3/uL (4.0-10.0)
[2020-12-01 07:01] LABS: BLOOD UREA NITROGEN 34 MG/DL (7-18); CALCIUM LEVEL 7.6 MG/DL (8.8-10.2); CARBON DIOXIDE LEVEL 17 MEQ/L (21-32); CHLORIDE LEVEL 117 MEQ/L (98-107); CREATININE FOR GFR 0.92 MG/DL (0.70-1.30); GLOMERULAR FILTRATION RATE > 60.0 (>35); GLUCOSE, FASTING 105 MG/DL (70-100); POTASSIUM SERUM 3.8 MEQ/L (3.5-5.1); SODIUM LEVEL 141 MEQ/L (136-145)
[2020-12-01] MEDS ORDERED: MAG SULF 1GM/100ML (MAG RUN) 1 GM in IV 1 EA IV ONE (09:00)
[2020-12-01] MEDS: TAMSULOSIN 0.4 MG CAP PO SCH ×2 (09:07→20:30)
[2020-12-01] MEDS: PANTOPRAZOLE 40MG TAB (PROTONIX) PO SCH ×2 (09:07→20:30)
[2020-12-01] MEDS: POTASSIUM CHLORIDE 10 MEQ SR TABLET PO SCH (09:07)
[2020-12-01] MEDS: ENOXAPARIN 40MG/0.4ML SYRINGE (J1650 PER 10MG) SC SCH (09:08)
[2020-12-01 10:00] VITALS: BP 123/65
[2020-12-01 14:00] VITALS: BP 126/60
--- NOTE | 2020-12-01 14:05 | IPNPDOC ---
Subjective Date Seen The patient was seen on 12/01/20. Subjective Chief Complaint/HPI Patient's only concern this morning is the amount of liquid stools coming out of his colostomy and the number of times it needs changed. He is concerned that if the stool did not does not get take then he will not be able to change to this many times at home. He is tolerating regular food says appetite is okay. Says that he is not a big eater at home also. Abdominal pain is controlled Objective Physical Examination General Exam: Positive: Alert, Cooperative, No Acute Distress Eye Exam: Positive: PERRLA, Conjunctiva & lids normal, EOMI; Negative: Sclera icteric ENT Exam: Positive: Atraumatic, Mucous membr. moist/pink, Pharynx Normal Chest Exam: Positive: Diminished (At the bases), Other (Bilateral basal crackles and course breath sounds) Heart Exam: Positive: Rate Normal, Regular Rhythm, Normal S1, Normal S2 Abdomen Exam: Positive: Soft, Tenderness, Other (Central abdominal incision and colostomy, bowel sounds present) Extremity Exam: Negative: Clubbing, Cyanosis, Edema Assessment /Plan Assessment 89 y/o M DNR/DNI with past medical history of BPH, urine retention, constipation, diverticular disease, skin ca, colon surgery 04/2012, hernia repair 1999 presented to the emergency room with nausea and vomiting and increasing abdominal distention with no flatus, and worsening generalized dull pain all over the abdomen. His Daughter calls every morning, and when he did not answer, she came over and found him in bed not feeling well. In the ER, ct abd/pelvis: ?intussussception. diverticulitis. Patient was initially managed consult for doubly with n.p.o. NG tube IV fluids, bowel meds however his abdominal d istention did not improve so he was taken to the OR and found to have sigmoid colon mass. He had sigmoid colectomy and colostomy creation on 11/25/2020. 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 Still large amounts of Colostomy output watery causing soiling of the midline laparotomy incision. Tolerating regular diet so we will stop TPN some drainage from the lower part of incision. Some of the matheus have been removed. Hypokalemia and hypomagnesemia Replaced Hypernatremia improved with dextrose. Acute on chronic anemia Likely due to dilution from postoperative fluid resuscitation, hematuria and also some amount of blood loss during surgery. No overt GI bleeding at this time We will transfuse if drops below 7. New left lower lobe infiltrate questionable pneumonia Status post IV Zosyn Changed to IV meropenem on 11/24/2020 due to worsening white count. Will give 7 days treatment. Acute kidney injury Resolved Gross hematuria with clots causing blockage of gottlieb. Patient says he usually gets gross hematuria at home which resolves on its own. Not on any antiplatelet or anticoagulants Here likely aggravated by Gottlieb and trauma from pulling on it. When gottlieb was changed to a 3 way for CBI it looked like the balloon had been displaced into the urethra probably thats why he had started hematuria. BPH / Urine retention /Intermittent hematuria Continue flomax. Possible dysphagia and aspiration Continue speech therapy Moderate pulmonary hypertension with moderate tricuspid insufficiency Plan/VTE VTE Prophylaxis Ordered?: Yes VS, I&O, 24H, [facility] Vital Signs/I&O Vital Signs Date Time Temp Pulse Resp B/P (MAP) Pulse Ox O2 Delivery O2 Flow Rate FiO2 12/01/20 06:00 98.1 80 19 140/67 (91) 95 Room Air 11/28/20 07:35 1.0 I&O- Last 24 Hours up to 6 AM 12/01/20 06:00 Intake Total 3990 ml Output Total 4000 ml Balance -10 ml Laboratory Data 24H LABS Laboratory Tests 2 11/30/20 12:08: Bedside Glucose (Misc Panel) 95 11/30/20 18:01: Bedside Glucose (Misc Panel) 113H 11/30/20 18:45: Anion Gap 7L, Glomerular Filtration Rate > 60.0, Calcium Level 7.6L, Magnesium Level 1.6L 12/01/20 00:11: Bedside Glucose (Misc Panel) 106 12/01/20 05:49: Bedside Glucose (Misc Panel) 106 12/01/20 05:55: Immature Granulocyte % (Auto) 1.7, Neutrophils (%) (Auto) 75.8H, Lymphocytes (%) (Auto) 13.1L, Monocytes (%) (Auto) 5.8, Eosinophils (%) (Auto) 3.3H, Basophils (%) (Auto) 0.3, Neutrophils # (Auto) 7.8, Lymphocytes # (Auto) 1.4L, Monocytes # (Auto) 0.6, Eosinophils # (Auto) 0.3, Basophils # (Auto) 0.0, Nucleated Red Blood Cells % (auto) 0.0, Anion Gap 7L, Glomerular Filtration Rate > 60.0, Calcium Level 7.6L CBC/BMP Laboratory Tests 11/30/20 18:45 12/01/20 05:55 Microbiology Microbiology 11/23/20 Respiratory Virus Panel (PCR) (JAY) - Final, Complete KURT MAYO MD Dec 01, 2020 08:23
--- NOTE | 2020-12-01 14:16 | IPN ---
PROGRESS NOTE DATE: 12/01/2020 HISTORY: The patient is now postop day #6 from a sigmoid colectomy for an obstructing cancer with creation of an end colostomy. He has been taking a regular diet and his ostomy is functioning well. He currently is connected to a continuos bladder irrigation system although there is no irrigation running currently. He appears fairly comfortable at present. Vital signs shows that he has been afebrile over the past 24 hours with a pulse of approximately 80 and a good blood pressure. Room air oxygen saturation is in the mid 90s. Intake and output today shows that yesterday he had 3500 ccs of intake with approximately 35 ccs out. He had 1800 ccs of urine output recorded. He has remained on the total parenteral nutrition. PHYSICAL EXAM: Patient is lying quietly in the hospital bed. Heart exam shows a regular rate and rhythm. The lungs are clear bilaterally. The abdomen is generally flat. He has active bowel sounds. His ostomy on the left has some greenish-brown liquid stool in the bag and the stoma itself appears viable. His midline incision is dressed and there is a small amount of pinkish drainage along the mid to lower portion of the midline incision. Calves are nontender and without any edema. Laboratory studies shows a white count of 10, hemoglobin 8, hematocrit 25 and a platelet count of 291,000. Differential count shows 76% neutrophils, 13% lymphocytes and 6% monocytes. Chemistry profile shows sodium 141, potassium 3.8, chloride 117, CO2 17, BUN 34, creatinine 0.9 and a glucose of 105. IMPRESSION: Patient is doing well now postop day #6 from his colectomy and colostomy. I spoke with Dr. Paris who is the Hospitalist managing his care. The plan is for his Meropenem to be discontinued today. She is also planning to discontinue his total parenteral nutrition today. I believe these are two prudent changes. RECOMMENDATIONS: I would recommend that the patient be continued with Physical Therapy in particular in order to try to regain some strength. He may be a candidate for acute rehabilitation. Dr. Barlow should return tomorrow to continue his care. [facility]ERSab[facility]
[2020-12-01 18:00] VITALS: BP 117/64
[2020-12-02 02:00] VITALS: BP 124/65
[2020-12-02] MEDS: SODIUM CHLORIDE 0.9% INJ 10 ML SYR IV SCH ×2 (05:33→19:02)
[2020-12-02 05:52] LABS: BASO % 0.4 % (0.0-1.0); EOS # 0.3 10^3/uL (0.0-0.5); EOS % 2.8 % (0.0-3.0); HEMATOCRIT 23.8 % (42.0-52.0); HEMOGLOBIN 7.2 g/dl (13.5-17.5); LYMPH # 1.5 10^3/uL (1.5-5.0); LYMPH % 14.4 % (24.0-44.0); MEAN CORPUSCULAR HEMOGLOBIN 24.3 pg (27.0-33.0); MEAN CORPUSCULAR HGB CONC 30.3 g/dl (32.0-36.5); MEAN CORPUSCULAR VOLUME 80.4 fl (80.0-96.0); MONO # 0.7 10^3/uL (0.0-0.8); MONO % 6.8 % (2.0-8.0); NEUTROPHILS # 7.7 10^3/uL (1.5-8.5); NEUTROPHILS % 73.8 % (36.0-66.0); PLATELET COUNT, AUTOMATED 331 10^3/uL (150-450); RED BLOOD COUNT 2.96 10^6/uL (4.30-6.10); WHITE BLOOD COUNT 10.4 10^3/uL (4.0-10.0)
[2020-12-02 06:00] VITALS: BP 135/60
[2020-12-02 06:14] LABS: BLOOD UREA NITROGEN 31 MG/DL (7-18); CALCIUM LEVEL 7.6 MG/DL (8.8-10.2); CARBON DIOXIDE LEVEL 17 MEQ/L (21-32); CHLORIDE LEVEL 119 MEQ/L (98-107); CREATININE FOR GFR 0.88 MG/DL (0.70-1.30); GLOMERULAR FILTRATION RATE > 60.0 (>35); GLUCOSE, FASTING 90 MG/DL (70-100); POTASSIUM SERUM 3.3 MEQ/L (3.5-5.1); SODIUM LEVEL 143 MEQ/L (136-145)
[2020-12-02 10:00] VITALS: BP 115/61
[2020-12-02] MEDS: TAMSULOSIN 0.4 MG CAP PO SCH ×2 (10:11→20:08)
[2020-12-02] MEDS: POTASSIUM CHLORIDE 10 MEQ SR TABLET PO SCH (10:11)
[2020-12-02] MEDS: PANTOPRAZOLE 40MG TAB (PROTONIX) PO SCH ×2 (10:11→20:08)
[2020-12-02] MEDS: ENOXAPARIN 40MG/0.4ML SYRINGE (J1650 PER 10MG) SC SCH (10:11)
--- NOTE | 2020-12-02 12:03 | IPNPDOC ---
Subjective Date Seen The patient was seen on 12/02/20. Subjective Chief Complaint/HPI Patient is feeling well this morning. Says he has a colostomy output is less and he did not need to be changed overnight. He is having breakfast. Reports that his appetite is okay but does clarify that he is not a big eater anyway. Has been working with physical therapy. Objective Physical Examination General Exam: Positive: Alert, Cooperative, No Acute Distress Eye Exam: Positive: PERRLA, Conjunctiva & lids normal, EOMI; Negative: Sclera icteric ENT Exam: Positive: Atraumatic, Mucous membr. moist/pink, Pharynx Normal Chest Exam: Positive: Diminished (At the bases), Other (Bilateral basal crackles and course breath sounds) Heart Exam: Positive: Rate Normal, Regular Rhythm, Normal S1, Normal S2 Abdomen Exam: Positive: Soft, Tenderness, Other (Central abdominal incision and colostomy, bowel sounds present) Extremity Exam: Negative: Clubbing, Cyanosis, Edema Assessment /Plan Assessment 89 y/o M DNR/DNI with past medical history of BPH, urine retention, constipation, diverticular disease, skin ca, colon surgery 04/2012, hernia repair 1999 presented to the emergency room with nausea and vomiting and increasing abd ominal distention with no flatus, and worsening generalized dull pain all over the abdomen. His Daughter calls every morning, and when he did not answer, she came over and found him in bed not feeling well. In the ER, ct abd/pelvis: ?intussussception. diverticulitis. Patient was initially managed consult for doubly with n.p.o. NG tube IV fluids, bowel meds however his abdominal distention did not improve so he was taken to the OR and found to have sigmoid colon mass. He had sigmoid colectomy and colostomy creation on 11/25/2020. 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 Colostomy output is slowing down. Status post TPN Tolerating regular diet some drainage from the lower part of incision. Some of the matheus have been removed. Hypokalemia and hypomagnesemia Replaced Hypernatremia improved with dextrose. Acute on chronic anemia Likely due to dilution from postoperative fluid resuscitation, hematuria and also some amount of blood loss during surgery. No overt GI bleeding at this time We will transfuse if drops below 7. New left lower lobe infiltrate questionable pneumonia Status post IV Zosyn Changed to IV meropenem on 11/24/2020 due to worsening white count. Finished 7 days of meropenem. Acute kidney injury Resolved Gross hematuria with clots causing blockage of gottlieb. Patient says he usually gets gross hematuria at home which resolves on its own. Not on any antiplatelet or anticoagulants Here likely aggravated by Gottlieb and trauma from pulling on it. When gottlieb was changed to a 3 way for CBI it looked like the balloon had been displaced into the urethra probably thats why he had started hematuria. Urine is now clear and patient is off CBI. BPH / Urine retention /Intermittent hematuria Continue flomax. Possible dysphagia and aspiration Aspiration precaution. Continue speech therapy Moderate pulmonary hypertension with moderate tricuspid insufficiency Disposition: Likely patient will go home with 24 into seven care provided by daughter Plan/VTE VTE Prophylaxis Ordered?: Yes VS, I&O, 24H, [facility] Vital Signs/I&O Vital Signs Date Time Temp Pulse Resp B/P (MAP) Pulse Ox O2 Delivery O2 Flow Rate FiO2 12/02/20 10:00 97.8 84 20 115/61 (79) 91 Room Air 11/28/20 07:35 1.0 I&O- Last 24 Hours up to 6 AM 12/02/20 05:59 Intake Total 1065 ml Output Total 2300 ml Balance -1235 ml Laboratory Data 24H LABS Laboratory Tests 2 12/01/20 12:13: Bedside Glucose (Misc Panel) 117H 12/01/20 18:12: Bedside Glucose (Misc Panel) 103 12/02/20 01:49: Bedside Glucose (Misc Panel) 90 12/02/20 05:38: Immature Granulocyte % (Auto) 1.8, Neutrophils (%) (Auto) 73.8H, Lymphocytes (%) (Auto) 14.4L, Monocytes (%) (Auto) 6.8, Eosinophils (%) (Auto) 2.8, Basophils (%) (Auto) 0.4, Neutrophils # (Auto) 7.7, Lymphocytes # (Auto) 1.5, Monocytes # (Auto) 0.7, Eosinophils # (Auto) 0.3, Basophils # (Auto) 0.0, Nucleated Red Blood Cells % (auto) 0.0, Anion Gap 7L, Glomerular Filtration Rate > 60.0, Calcium Level 7.6L CBC/BMP Laboratory Tests 12/02/20 05:38 Microbiology Microbiology 11/23/20 Respiratory Virus Panel (PCR) (JAY) - Final, Complete KURT MAYO MD Dec 02, 2020 12:03
[2020-12-02 14:00] VITALS: BP 115/61
[2020-12-02 18:00] VITALS: BP 112/56
[2020-12-02 22:00] VITALS: BP 111/57
[2020-12-03] VITALS (7 sets, daily range): BP systolic 98–108; BP diastolic 47–61
[2020-12-03] MEDS: SODIUM CHLORIDE 0.9% INJ 10 ML SYR IV SCH ×2 (05:05→19:31)
[2020-12-03 05:17] LABS: BASO % 0.4 % (0.0-1.0); EOS # 0.3 10^3/uL (0.0-0.5); EOS % 3.1 % (0.0-3.0); HEMATOCRIT 24.6 % (42.0-52.0); HEMOGLOBIN 7.4 g/dl (13.5-17.5); LYMPH # 1.4 10^3/uL (1.5-5.0); LYMPH % 14.8 % (24.0-44.0); MEAN CORPUSCULAR HEMOGLOBIN 24.2 pg (27.0-33.0); MEAN CORPUSCULAR HGB CONC 30.1 g/dl (32.0-36.5); MEAN CORPUSCULAR VOLUME 80.4 fl (80.0-96.0); MONO # 0.7 10^3/uL (0.0-0.8); MONO % 7.2 % (2.0-8.0); PLATELET COUNT, AUTOMATED 362 10^3/uL (150-450); RED BLOOD COUNT 3.06 10^6/uL (4.30-6.10); WHITE BLOOD COUNT 9.5 10^3/uL (4.0-10.0)
[2020-12-03 05:42] LABS: BLOOD UREA NITROGEN 29 MG/DL (7-18); CALCIUM LEVEL 7.5 MG/DL (8.8-10.2); CARBON DIOXIDE LEVEL 18 MEQ/L (21-32); CHLORIDE LEVEL 120 MEQ/L (98-107); CREATININE FOR GFR 0.87 MG/DL (0.70-1.30); GLOMERULAR FILTRATION RATE > 60.0 (>35); GLUCOSE, FASTING 89 MG/DL (70-100); POTASSIUM SERUM 3.2 MEQ/L (3.5-5.1); SODIUM LEVEL 145 MEQ/L (136-145)
--- NOTE | 2020-12-03 08:32 | IPNPDOC ---
Text Note Date of Service The patient was seen on 12/03/20. NOTE General surgery. Dr Barlow Patient is status post open sigmoid resection with colostomy as per Dr. Barlow 11/25/2020 for obstructing cancer. The patient is sitting up in bed eating breakfast. States he has been trying to eat more. Out of bed with physical therapy yesterday. Afebrile VSS MMM Decreased breath sounds at bases with coarse rhonchi. S1-S2 regular rate rhythm Abdomen soft, central abdominal incision with matheus intact, small amount of drainage noted on the dressing. ostomy pink, brown liquid stool WBC 9.5, decreased from 10.4 yesterday. Hemoglobin 7.4 Assessment/plan Status post open sigmoid resection with colostomy as per Dr. Barlow 11/25/2020 for obstructing cancer. The patient is reviewed with Dr. Barlow. Pathology 11/25/2020 indicates invasive adenocarcinoma, margins uninvolved, lymph nodes negative. WBC normalized. Output from ostomy trending down slightly. Continue to keep midline incision clean and dry, continue to monitor Continue to work with physical therapy Tolerating regular diet Plan for oncology as outpatient. VS,Fishbone, I+O VS, Fishbone, I+O Laboratory Tests 12/03/20 05:04 Vital Signs Date Time Temp Pulse Resp B/P (MAP) Pulse Ox O2 Delivery O2 Flow Rate FiO2 12/03/20 06:00 97.8 80 16 108/58 (75) 92 Room Air 11/28/20 07:35 1.0 I&O- Last 24 Hours up to 6 AM 12/03/20 06:00 Intake Total 1070 ml Output Total 2950 ml Balance -1880 ml Anitha Prakash Dec 03, 2020 08:32
--- NOTE | 2020-12-03 08:36 | IPN ---
PROGRESS NOTE DATE: 12/02/2020 HISTORY : Patient is now postoperative day #7 from a sigmoid colectomy and colostomy for obstructing cancer. He has been taking a regular diet and seems fairly comfortable. His ostomy is functioning well. VITAL SIGNS: Show that over the past 24 hours he has been afebrile. His pulse is in the 70s to 80s generally and his blood pressure is excellent. His room air oxygen saturations are in the low to mid 90s. Intake and output show that yesterday he had 1500 in with 3100 out. PHYSICAL EXAMINATION : Patient is lying quietly in the hospital bed. He is alert and oriented. He appears comfortable at rest. Heart exam shows a regular rhythm. Lungs are clear. His abdomen is flat. His ostomy is draining nicely and appears pink and viable. His midline incision still has a very small amount of pinkish fluid draining from the lower mid portion of the incision. Otherwise, the wound appears clean without any signs of redness. The abdomen is soft without undue tenderness. Calves are nontender and there is no peripheral edema. LABORATORY: Studies show that he has a white count of 10, hemoglobin 7, hematocrit 24 and a platelet count of 331,000, which is stable over the last several days. Differential count shows 74% neutrophils, 14% lymphocytes, and 7% monocytes. Chemistry profile shows sodium 143, potassium 3.3, chloride 119, CO2 of 17, BUN of 31, creatinine 0.88 and a glucose of 90. IMPRESSION: The patient is doing well now one week postoperative from his colectomy and colostomy. He is alert, comfortable and tolerating a regular diet. RECOMMENDATIONS: At this point, the patient must continue physical therapy. We should probably attempt some ostomy training. He apparently has been living alone and if there is any hope that he would return to his previous level of functioning, he would need to be able to care for his own colostomy. This may not be workable ultimately. I would leave his abdominal matheus in place another few days before considering removal. Dr. Barlow should be available to resume the patient's care on the 03 of December. [facility]ITALSab[facility]
[2020-12-03] MEDS: ENOXAPARIN 40MG/0.4ML SYRINGE (J1650 PER 10MG) SC SCH (10:11)
[2020-12-03] MEDS: TAMSULOSIN 0.4 MG CAP PO SCH ×2 (10:11→20:05)
[2020-12-03] MEDS: PANTOPRAZOLE 40MG TAB (PROTONIX) PO SCH ×2 (10:11→20:05)
[2020-12-03] MEDS: POTASSIUM CHLORIDE 10 MEQ SR TABLET PO SCH (10:12)
[2020-12-03] MEDS ORDERED: POTASSIUM CHLORIDE 10 MEQ SR TABLET PO ONE (12:00)
[2020-12-03] MEDS ORDERED: NS 500 ML IV ONE (12:10)
--- NOTE | 2020-12-03 16:56 | IPNPDOC ---
Date Seen The patient was seen on 12/03/20. Progress Note SUBJECTIVE: Patient is status post open sigmoid resection with colostomy on 11/25/20 for obstructing cancer. Patient noted to have labile blood pressures 99/52. Asymptomatic. Reports he feels well. Still has been putting out copiously approximately 3000 mL daily in the last 4 days, slightly improved today. Patient has had a Gottlieb in place with CBI draining clear bladder contents without clots. OBJECTIVE PHYSICAL EXAMINATION: VITAL SIGNS: please see below General: NAD, comfortable HEENT: PERRLA, EOMI, sclerae clear Neck: supple, normal ROM, no JVD Respiratory: lungs CTAB, no wheeze, no rales, no crackles CVS: RRR, normal S1, S2, no murmurs Abdo: soft, no masses, no hepatosplenomegaly, BS+, no rebound tenderness Extremities: no edema, pulses 2+ MSK: no joint deformities, normal ROM Neuro: no focal neuro deficits, moving all 4 extremities, CN2-12 intact. Strength 5/5 in all 4 extremities. No nystagmus. Psych: calm, cooperative, AAO x 3 LABORATORY DATA, IMAGING STUDIES, MICROBIOLOGY: Please see below. DVT prophylaxis ordered?: TEDs ASSESSMENT AND PLAN: 89 y/o M DNR/DNI with past medical history of BPH, urine retention, constipation, diverticular disease, skin ca, colon surgery 04/2012, hernia repair 1999 presented to the emergency room with nausea and vomiting and increasing abdominal distention with no flatus, and worsening generalized dull pain all over the abdomen. His Daughter calls every morning, and when he did not answer, she came over and found him in bed not feeling well. In the ER, ct abd/pelvis: ?intussussception. diverticulitis. Patient was initially managed consult for doubly with n.p.o. NG tube IV fluids, bowel meds however his abdominal distention did not improve so he was taken to the OR and found to have sigmoid colon mass. He had sigmoid colectomy and colostomy creation on 11/25/2020. 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 Colostomy output is slowing down. Status post TPN Tolerating regular diet some drainage from the lower part of incision. Some of the matheus have been removed. Hypokalemia and hypomagnesemia Replaced Hypernatremia improved with dextrose. Acute on chronic anemia Likely due to dilution from postoperative fluid resuscitation, hematuria and also some amount of blood loss during surgery. No overt GI bleeding at this time We will transfuse if drops below 7. New left lower lobe infiltrate questionable pneumonia Status post IV Zosyn Changed to IV meropenem on 11/24/2020 due to worsening white count. Finished 7 days of meropenem. Acute kidney injury Resolved Gross hematuria with clots causing blockage of gottlieb. Patient says he usually gets gross hematuria at home which resolves on its own. Not on any antiplatelet or anticoagulants Here likely aggravated by Gottlieb and trauma from pulling on it. When gottlieb was changed to a [address] for CBI it looked like the balloon had been displaced into the urethra probably thats why he had started hematuria. Urine is now clear and patient is off CBI. d/w Dr. Yang. Will remove gottlieb in am, trial of void. If continues to retain, will replace gottlieb and have patient follow up in clinic. BPH / Urine retention /Intermittent hematuria Continue flomax. Possible dysphagia and aspiration Aspiration precaution. ordered speech therapy Moderate pulmonary hypertension with moderate tricuspid insufficiency Disposition: Likely patient will go home with 24 into seven care provided by daughter VS, I&O, 24H, [facility] Vital Signs/I&O Vital Signs Date Time Temp Pulse Resp B/P (MAP) Pulse Ox O2 Delivery O2 Flow Rate FiO2 12/03/20 14:00 97.8 79 18 99/54 (69) 96 Room Air 11/28/20 07:35 1.0 I&O- Last 24 Hours up to 6 AM 12/03/20 06:00 Intake Total 1070 ml Output Total 2950 ml Balance -1880 ml Laboratory Data 24H LABS Laboratory Tests 2 12/03/20 05:04: Immature Granulocyte % (Auto) 1.5, Neutrophils (%) (Auto) 73.0H, Lymphocytes (%) (Auto) 14.8L, Monocytes (%) (Auto) 7.2, Eosinophils (%) (Auto) 3.1H, Basophils (%) (Auto) 0.4, Neutrophils # (Auto) 7.0, Lymphocytes # (Auto) 1.4L, Monocytes # (Auto) 0.7, Eosinophils # (Auto) 0.3, Basophils # (Auto) 0.0, Nucleated Red Blood Cells % (auto) 0.0, Anion Gap 7L, Glomerular Filtration Rate > 60.0, Calcium Level 7.5L CBC/BMP Laboratory Tests 12/03/20 05:04 Microbiology Microbiology 11/23/20 Respiratory Virus Panel (PCR) ([facility]) - Final, Complete KASEY MEDRANO MD Dec 03, 2020 16:56
[2020-12-04 02:00] VITALS: BP 104/63
[2020-12-04] MEDS: SODIUM CHLORIDE 0.9% INJ 10 ML SYR IV SCH ×2 (04:54→18:00)
[2020-12-04 05:20] LABS: BASO # 0.1 10^3/uL (0.0-0.2); BASO % 0.8 % (0.0-1.0); EOS # 0.3 10^3/uL (0.0-0.5); EOS % 4.4 % (0.0-3.0); HEMATOCRIT 24.1 % (42.0-52.0); HEMOGLOBIN 7.3 g/dl (13.5-17.5); LYMPH # 1.5 10^3/uL (1.5-5.0); LYMPH % 20.2 % (24.0-44.0); MEAN CORPUSCULAR HEMOGLOBIN 24.4 pg (27.0-33.0); MEAN CORPUSCULAR HGB CONC 30.3 g/dl (32.0-36.5); MEAN CORPUSCULAR VOLUME 80.6 fl (80.0-96.0); MONO # 0.6 10^3/uL (0.0-0.8); MONO % 7.8 % (2.0-8.0); NEUTROPHILS # 4.8 10^3/uL (1.5-8.5); NEUTROPHILS % 65.7 % (36.0-66.0); PLATELET COUNT, AUTOMATED 375 10^3/uL (150-450); RED BLOOD COUNT 2.99 10^6/uL (4.30-6.10); WHITE BLOOD COUNT 7.3 10^3/uL (4.0-10.0)
[2020-12-04 05:37] LABS: BLOOD UREA NITROGEN 24 MG/DL (7-18); CALCIUM LEVEL 7.9 MG/DL (8.8-10.2); CARBON DIOXIDE LEVEL 17 MEQ/L (21-32); CHLORIDE LEVEL 123 MEQ/L (98-107); CREATININE FOR GFR 0.93 MG/DL (0.70-1.30); GLOMERULAR FILTRATION RATE > 60.0 (>35); GLUCOSE, FASTING 84 MG/DL (70-100); POTASSIUM SERUM 3.2 MEQ/L (3.5-5.1); SODIUM LEVEL 147 MEQ/L (136-145)
[2020-12-04 06:00] VITALS: BP 109/60
[2020-12-04] MEDS: ENOXAPARIN 40MG/0.4ML SYRINGE (J1650 PER 10MG) SC SCH (09:50)
[2020-12-04] MEDS: POTASSIUM CHLORIDE 10 MEQ SR TABLET PO SCH (09:50)
[2020-12-04] MEDS: PANTOPRAZOLE 40MG TAB (PROTONIX) PO SCH ×2 (09:50→20:06)
[2020-12-04] MEDS: TAMSULOSIN 0.4 MG CAP PO SCH ×2 (09:50→20:06)
[2020-12-04 14:00] VITALS: BP 110/54
--- NOTE | 2020-12-04 17:47 | IPNPDOC ---
Date Seen The patient was seen on 12/04/20. Progress Note SUBJECTIVE: Patient is status post open sigmoid resection with colostomy on 11/25/20 for obstructing cancer. Patient noted to have labile blood pressures 99/52. Asymptomatic. Reports he feels well. Still has been putting out copiously approximately 3000 mL daily in the last 4 days, slightly improved today. Patient has had a Gottlieb in place with CBI draining clear bladder contents without clots. OBJECTIVE PHYSICAL EXAMINATION: VITAL SIGNS: please see below General: NAD, comfortable HEENT: PERRLA, EOMI, sclerae clear Neck: supple, normal ROM, no JVD Respiratory: lungs CTAB, no wheeze, no rales, no crackles CVS: RRR, normal S1, S2, no murmurs Abdo: soft, no masses, no hepatosplenomegaly, BS+, no rebound tenderness Extremities: no edema, pulses 2+ MSK: no joint deformities, normal ROM Neuro: no focal neuro deficits, moving all 4 extremities, CN2-12 intact. Strength 5/5 in all 4 extremities. No nystagmus. Psych: calm, cooperative, AAO x 3 LABORATORY DATA, IMAGING STUDIES, MICROBIOLOGY: Please see below. DVT prophylaxis ordered?: TEDs ASSESSMENT AND PLAN: 89 y/o M DNR/DNI with past medical history of BPH, urine retention, constipation, diverticular disease, skin ca, colon surgery 04/2012, hernia repair 1999 presented to the emergency room with nausea and vomiting and increasing abdominal distention with no flatus, and worsening generalized dull pain all over the abdomen. His Daughter calls every morning, and when he did not answer, she came over and found him in bed not feeling well. In the ER, ct abd/pelvis: ?intussussception. diverticulitis. Patient was initially managed consult for doubly with n.p.o. NG tube IV fluids, bowel meds however his abdominal distention did not improve so he was taken to the OR and found to have sigmoid colon mass. He had sigmoid colectomy and colostomy creation on 11/25/2020. 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 Colostomy output is slowing down. Status post TPN Tolerating regular diet some drainage from the lower part of incision. Some of the matheus have been removed. Hypokalemia and hypomagnesemia Replaced Hypernatremia improved with dextrose. Acute on chronic anemia Likely due to dilution from postoperative fluid resuscitation, hematuria and also some amount of blood loss during surgery. No overt GI bleeding at this time We will transfuse if drops below 7. New left lower lobe infiltrate questionable pneumonia Status post IV Zosyn Changed to IV meropenem on 11/24/2020 due to worsening white count. Finished 7 days of meropenem. Acute kidney injury Resolved Gross hematuria with clots causing blockage of gottlieb. Patient says he usually gets gross hematuria at home which resolves on its own. Not on any antiplatelet or anticoagulants Here likely aggravated by Gottlieb and trauma from pulling on it. When gottlieb was changed to a 3 way for CBI it looked like the balloon had been displaced into the urethra probably thats why he had started hematuria. Urine is now clear and patient is off CBI. d/w Dr. Yang. Will remove gottlieb in am, trial of void. If continues to retain, will replace gottlieb and have patient follow up in clinic. BPH / Urine retention /Intermittent hematuria Continue flomax. Possible dysphagia and aspiration Aspiration precaution. ordered speech therapy Moderate pulmonary hypertension with moderate tricuspid insufficiency Disposition: Likely patient will go home with 24 into seven care provided by daughter VS, I&O, 24H, [facility] Vital Signs/I&O Vital Signs Date Time Temp Pulse Resp B/P (MAP) Pulse Ox O2 Delivery O2 Flow Rate FiO2 12/04/20 14:00 97.7 67 18 110/54 (72) 97 Room Air 11/28/20 07:35 1.0 I&O- Last 24 Hours up to 6 AM 12/04/20 06:00 Intake Total 1280 ml Output Total 1925 ml Balance -645 ml Laboratory Data 24H LABS Laboratory Tests 2 12/04/20 05:00: Immature Granulocyte % (Auto) 1.1, Neutrophils (%) (Auto) 65.7, Lymphocytes (%) (Auto) 20.2L, Monocytes (%) (Auto) 7.8, Eosinophils (%) (Auto) 4.4H, Basophils (%) (Auto) 0.8, Neutrophils # (Auto) 4.8, Lymphocytes # (Auto) 1.5, Monocytes # (Auto) 0.6, Eosinophils # (Auto) 0.3, Basophils # (Auto) 0.1, Nucleated Red Blood Cells % (auto) 0.0, Anion Gap 7L, Glomerular Filtration Rate > 60.0, Calcium Level 7.9L, Magnesium Level 1.9 CBC/BMP Laboratory Tests 12/04/20 05:00 KASEY MEDRANO MD Dec 04, 2020 17:47
[2020-12-04 18:00] VITALS: BP 107/54
[2020-12-04 22:00] VITALS: BP 111/60
[2020-12-05 02:00] VITALS: BP 123/62
[2020-12-05] MEDS: SODIUM CHLORIDE 0.9% INJ 10 ML SYR IV SCH ×2 (05:11→16:54)
[2020-12-05 06:00] VITALS: BP 117/57
[2020-12-05] MEDS: PANTOPRAZOLE 40MG TAB (PROTONIX) PO SCH ×2 (08:35→19:43)
[2020-12-05] MEDS: POTASSIUM CHLORIDE 10 MEQ SR TABLET PO SCH (08:36)
[2020-12-05] MEDS: TAMSULOSIN 0.4 MG CAP PO SCH ×2 (08:36→19:43)
[2020-12-05] MEDS: ENOXAPARIN 40MG/0.4ML SYRINGE (J1650 PER 10MG) SC SCH (08:36)
[2020-12-05 10:00] VITALS: BP 110/54
[2020-12-05 14:00] VITALS: BP 115/54
[2020-12-05] MEDS: SODIUM CHLORIDE 0.9% INJ 10 ML SYR IV PRN (15:01)
[2020-12-05 15:21] LABS: BASO % 0.5 % (0.0-1.0); EOS # 0.1 10^3/uL (0.0-0.5); EOS % 1.7 % (0.0-3.0); HEMATOCRIT 24.3 % (42.0-52.0); HEMOGLOBIN 7.5 g/dl (13.5-17.5); LYMPH # 1.2 10^3/uL (1.5-5.0); LYMPH % 16.4 % (24.0-44.0); MEAN CORPUSCULAR HEMOGLOBIN 25.1 pg (27.0-33.0); MEAN CORPUSCULAR HGB CONC 30.9 g/dl (32.0-36.5); MEAN CORPUSCULAR VOLUME 81.3 fl (80.0-96.0); MONO # 0.6 10^3/uL (0.0-0.8); MONO % 7.3 % (2.0-8.0); NEUTROPHILS # 5.6 10^3/uL (1.5-8.5); NEUTROPHILS % 73.6 % (36.0-66.0); PLATELET COUNT, AUTOMATED 397 10^3/uL (150-450); RED BLOOD COUNT 2.99 10^6/uL (4.30-6.10); WHITE BLOOD COUNT 7.6 10^3/uL (4.0-10.0)
[2020-12-05 15:47] LABS: ALBUMIN 1.9 GM/DL (3.2-5.2); ALT/SGPT 23 U/L (12-78); BILIRUBIN,TOTAL 0.3 MG/DL (0.2-1.0); BLOOD UREA NITROGEN 22 MG/DL (7-18); CALCIUM LEVEL 8.2 MG/DL (8.8-10.2); CARBON DIOXIDE LEVEL 18 MEQ/L (21-32); CHLORIDE LEVEL 121 MEQ/L (98-107); CREATININE FOR GFR 0.98 MG/DL (0.70-1.30); GLOMERULAR FILTRATION RATE > 60.0 (>35); GLUCOSE, FASTING 92 MG/DL (70-100); POTASSIUM SERUM 3.4 MEQ/L (3.5-5.1); SODIUM LEVEL 146 MEQ/L (136-145); TOTAL PROTEIN 5.1 GM/DL (6.4-8.2)
--- NOTE | 2020-12-05 17:34 | IPNPDOC ---
Date Seen The patient was seen on 12/05/20. Progress Note SUBJECTIVE: Patient is status post open sigmoid resection with colostomy on 11/25/20 for obstructing cancer. Patient noted to have labile blood pressures 99/52. Asymptomatic. Reports he feels well. Still has been putting out copiously approximately 3000 mL daily in the last 4 days, slightly improved today. Patient has had a Gottlieb in place with CBI draining clear bladder contents without clots. OBJECTIVE PHYSICAL EXAMINATION: VITAL SIGNS: please see below General: NAD, comfortable HEENT: PERRLA, EOMI, sclerae clear Neck: supple, normal ROM, no JVD Respiratory: lungs CTAB, no wheeze, no rales, no crackles CVS: RRR, normal S1, S2, no murmurs Abdo: soft, no masses, no hepatosplenomegaly, BS+, no rebound tenderness Extremities: no edema, pulses 2+ MSK: no joint deformities, normal ROM Neuro: no focal neuro deficits, moving all 4 extremities, CN2-12 intact. Strength 5/5 in all 4 extremities. No nystagmus. Psych: calm, cooperative, AAO x 3 LABORATORY DATA, IMAGING STUDIES, MICROBIOLOGY: Please see below. DVT prophylaxis ordered?: TEDs ASSESSMENT AND PLAN: 89 y/o M DNR/DNI with past medical history of BPH, urine retention, constipation, diverticular disease, skin ca, colon surgery 04/2012, hernia repair 1999 presented to the emergency room with nausea and vomiting and increasing abdominal distention with no flatus, and worsening generalized dull pain all over the abdomen. His Daughter calls every morning, and when he did not answer, she came over and found him in bed not feeling well. In the ER, ct abd/pelvis: ?intussussception. diverticulitis. Patient was initially managed consult for doubly with n.p.o. NG tube IV fluids, bowel meds however his abdominal distention did not improve so he was taken to the OR and found to have sigmoid colon mass. He had sigmoid colectomy and colostomy creation on 11/25/2020. 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 Colostomy output is slowing down. Status post TPN Tolerating regular diet some drainage from the lower part of incision. Some of the matheus have been removed. Hypokalemia and hypomagnesemia Replaced Hypernatremia improved with dextrose. Acute on chronic anemia Likely due to dilution from postoperative fluid resuscitation, hematuria and also some amount of blood loss during surgery. No overt GI bleeding at this time We will transfuse if drops below 7. New left lower lobe infiltrate questionable pneumonia Status post IV Zosyn Changed to IV meropenem on 11/24/2020 due to worsening white count. Finished 7 days of meropenem. Acute kidney injury Resolved Gross hematuria with clots causing blockage of gottlieb. Patient says he usually gets gross hematuria at home which resolves on its own. Not on any antiplatelet or anticoagulants Here likely aggravated by Gottlieb and trauma from pulling on it. When gottlieb was changed to a 3 way for CBI it looked like the balloon had been displaced into the urethra probably thats why he had started hematuria. Urine is now clear and patient is off CBI. d/w Dr. Yang. removed gottlieb seems to voiding with small amount of retention. Last residual ~120 cc. BPH / Urine retention /Intermittent hematuria Continue flomax. Possible dysphagia and aspiration Aspiration precaution. ordered speech therapy Moderate pulmonary hypertension with moderate tricuspid insufficiency Disposition: Likely patient will go home with 24 into seven care provided by daughter VS, I&O, 24H, [facility] Vital Signs/I&O Vital Signs Date Time Temp Pulse Resp B/P (MAP) Pulse Ox O2 Delivery O2 Flow Rate FiO2 12/05/20 14:00 97.4 78 17 115/54 (74) 97 Room Air I&O- Last 24 Hours up to 6 AM 12/05/20 06:00 Intake Total 934 ml Output Total 2075 ml Balance -1141 ml Laboratory Data 24H LABS Laboratory Tests 2 12/05/20 15:00: Immature Granulocyte % (Auto) 0.5, Neutrophils (%) (Auto) 73.6H, Lymphocytes (%) (Auto) 16.4L, Monocytes (%) (Auto) 7.3, Eosinophils (%) (Auto) 1.7, Basophils (%) (Auto) 0.5, Neutrophils # (Auto) 5.6, Lymphocytes # (Auto) 1.2L, Monocytes # (Auto) 0.6, Eosinophils # (Auto) 0.1, Basophils # (Auto) 0.0, Nucleated Red Bl ood Cells % (auto) 0.0, Anion Gap 7L, Glomerular Filtration Rate > 60.0, Calcium Level 8.2L, Magnesium Level 2.0, Total Bilirubin 0.3, Aspartate Amino Transf (AST/SGOT) 11, Alanine Aminotransferase (ALT/SGPT) 23, Alkaline Phosphatase 161H, Total Protein 5.1L, Albumin 1.9L, Albumin/Globulin Ratio 0.6 CBC/BMP Laboratory Tests 12/05/20 15:00 KASEY MEDRANO MD Dec 05, 2020 17:34
[2020-12-05 18:00] VITALS: BP 115/57
[2020-12-05 22:00] VITALS: BP 114/55
[2020-12-06] VITALS (10 sets, daily range): BP systolic 99–141; BP diastolic 45–81
[2020-12-06] MEDS: SODIUM CHLORIDE 0.9% INJ 10 ML SYR IV SCH ×2 (05:55→18:55)
[2020-12-06] MEDS: SODIUM CHLORIDE 0.9% INJ 10 ML SYR IV PRN (05:55)
[2020-12-06 06:14] LABS: BASO % 0.6 % (0.0-1.0); EOS # 0.3 10^3/uL (0.0-0.5); EOS % 3.8 % (0.0-3.0); HEMATOCRIT 24.3 % (42.0-52.0); HEMOGLOBIN 7.4 g/dl (13.5-17.5); LYMPH # 1.4 10^3/uL (1.5-5.0); LYMPH % 19.5 % (24.0-44.0); MEAN CORPUSCULAR HEMOGLOBIN 24.6 pg (27.0-33.0); MEAN CORPUSCULAR HGB CONC 30.5 g/dl (32.0-36.5); MEAN CORPUSCULAR VOLUME 80.7 fl (80.0-96.0); MONO # 0.5 10^3/uL (0.0-0.8); MONO % 7.4 % (2.0-8.0); NEUTROPHILS # 4.9 10^3/uL (1.5-8.5); PLATELET COUNT, AUTOMATED 401 10^3/uL (150-450); RED BLOOD COUNT 3.01 10^6/uL (4.30-6.10); WHITE BLOOD COUNT 7.2 10^3/uL (4.0-10.0)
[2020-12-06 08:24] LABS: ALBUMIN 1.7 GM/DL (3.2-5.2); ALT/SGPT 20 U/L (12-78); BILIRUBIN,TOTAL 0.3 MG/DL (0.2-1.0); BLOOD UREA NITROGEN 21 MG/DL (7-18); CALCIUM LEVEL 7.6 MG/DL (8.8-10.2); CARBON DIOXIDE LEVEL 18 MEQ/L (21-32); CHLORIDE LEVEL 119 MEQ/L (98-107); CREATININE FOR GFR 1.19 MG/DL (0.70-1.30); FERRITIN 95 NG/ML (26-388); GLOMERULAR FILTRATION RATE > 60.0 (>35); GLUCOSE, FASTING 95 MG/DL (70-100); IRON (FE) 29 UG/DL (65-175); MAGNESIUM LEVEL 1.9 MG/DL (1.8-2.4); PERCENT SATURATION 12.2 % (19.7-50.0); POTASSIUM SERUM 2.9 MEQ/L (3.5-5.1); SODIUM LEVEL 144 MEQ/L (136-145); TOTAL IRON BINDING CAPACITY 237 UG/DL (250-450); TOTAL PROTEIN 4.9 GM/DL (6.4-8.2)
[2020-12-06] MEDS ORDERED: IRON SUCROSE 100MG 5ML VIAL (J1756 PER 1MG) IV SCH (09:00)
[2020-12-06] MEDS: PANTOPRAZOLE 40MG TAB (PROTONIX) PO SCH ×2 (09:30→20:19)
[2020-12-06] MEDS: TAMSULOSIN 0.4 MG CAP PO SCH ×2 (09:30→20:19)
[2020-12-06] MEDS: POTASSIUM CHLORIDE 10 MEQ SR TABLET PO SCH (09:30)
[2020-12-06] MEDS: KCL 10MEQ/100ML SWI (KRUN) 10 MEQ in IV 1 EA IV SCH ×2 (09:31→10:37)
[2020-12-06] MEDS: ENOXAPARIN 40MG/0.4ML SYRINGE (J1650 PER 10MG) SC SCH (09:31)
[2020-12-06] MEDS ORDERED: POTASSIUM CHLORIDE 10 MEQ SR TABLET PO ONE (10:00)
[2020-12-06 11:06] LABS: FOLATE 2.9 NG/ML; VITAMIN B12 LEVEL 524 PG/ML
[2020-12-06] MEDS: IRON SUCROSE 250 MG in NS 250 ML IV SCH (12:13)
--- NOTE | 2020-12-06 18:07 | IPNPDOC ---
Date Seen The patient was seen on 12/06/20. Progress Note SUBJECTIVE: seen and examined at bedside. Asking to go home. Still having trouble with stoma bag replacement per RN. OBJECTIVE PHYSICAL EXAMINATION: VITAL SIGNS: please see below General: NAD, comfortable HEENT: PERRLA, EOMI, sclerae clear Neck: supple, normal ROM, no JVD Respiratory: lungs CTAB, no wheeze, no rales, no crackles CVS: RRR, normal S1, S2, no murmurs Abdo: midline incision aappears slightly developing eschar. Ostomy slightly prolapsed with escar around it. Extremities: no edema, pulses 2+ MSK: no joint deformities, normal ROM Neuro: no focal neuro deficits, moving all 4 extremities, CN2-12 intact. Strength 5/5 in all 4 extremities. No nystagmus. Psych: calm, cooperative, AAO x 3 LABORATORY DATA, IMAGING STUDIES, MICROBIOLOGY: Please see below. DVT prophylaxis ordered?: TEDs ASSESSMENT AND PLAN: 89 y/o M DNR/DNI with past medical history of BPH, urine retention, constipation, diverticular disease, skin ca, colon surgery 04/2012, hernia repair 1999 presented to the emergency room with nausea and vomiting and increasing abdominal distention with no flatus, and worsening generalized dull pain all over the abdomen. His Daughter calls every morning, and when he did not answer, she came over and found him in bed not feeling well. In the ER, ct abd/pelvis: ?intussussception. diverticulitis. Patient was initially managed consult for doubly with n.p.o. NG tube IV fluids, bowel meds however his abdominal distention did not improve so he was taken to the OR and found to have sigmoid colon mass. He had sigmoid colectomy and colostomy creation on 11/25/2020. 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 Colostomy output is slowing down. Status post TPN Tolerating regular diet some drainage from the lower part of incision. Some of the matheus have been removed. Concern for dusky ostomy, and eschar on midline incision I spoke to Dr. Salter and requested a reevaluation of the stoma. Pending recommendations. Hypokalemia and hypomagnesemia Replace PO and IV Hypernatremia improved with dextrose. Acute on chronic anemia Likely due to dilution from postoperative fluid resuscitation, hematuria and also some amount of blood loss during surgery. No overt GI bleeding at this time We will transfuse if drops below 7. New left lower lobe infiltrate questionable pneumonia Status post IV Zosyn Changed to IV meropenem on 11/24/2020 due to worsening white count. Finished 7 days of meropenem. Acute kidney injury Resolved Gross hematuria with clots causing blockage of gottlieb. Patient says he usually gets gross hematuria at home which resolves on its own. Not on any antiplatelet or anticoagulants Here likely aggravated by Gottlieb and trauma from pulling on it. When gottlieb was changed to a 3 way for CBI it looked like the balloon had been displaced into the urethra probably thats why he had started hematuria. Urine is now clear and patient is off CBI. d/w Dr. Yang. removed gottlieb seems to voiding with small amount of retention. Last residual ~120 cc. BPH / Urine retention /Intermittent hematuria Continue flomax. Possible dysphagia and aspiration Aspiration precaution. ordered speech therapy Moderate pulmonary hypertension with moderate tricuspid insufficiency Disposition: Likely patient will go home with 24 into seven care provided by kymberly VS, I&O, 24H, [facility] Vital Signs/I&O Vital Signs Date Time Temp Pulse Resp B/P (MAP) Pulse Ox O2 Delivery O2 Flow Rate FiO2 12/06/20 17:54 97.5 84 18 113/60 99 12/06/20 16:53 Room Air I&O- Last 24 Hours up to 6 AM 12/06/20 06:00 Intake Total 950 ml Output Total 1225 ml Balance -275 ml Laboratory Data 24H LABS Laboratory Tests 2 12/06/20 06:01: Immature Granulocyte % (Auto) 0.7, Neutrophils (%) (Auto) 68.0H, Lymphocytes (%) (Auto) 19.5L, Monocytes (%) (Auto) 7.4, Eosinophils (%) (Auto) 3.8H, Basophils (%) (Auto) 0.6, Neutrophils # (Auto) 4.9, Lymphocytes # (Auto) 1.4L, Monocytes # (Auto) 0.5, Eosinophils # (Auto) 0.3, Basophils # (Auto) 0.0, Nucleated Red Blood Cells % (auto) 0.0, Anion Gap 7L, Glomerular Filtration Rate > 60.0, Calcium Level 7.6L, Magnesium Level 1.9, Iron Level 29L, Total Iron Binding Capacity 237L, Transferrin % Saturation 12.2L, Ferritin 95, Total Bilirubin 0.3, Aspartate Amino Transf (AST/SGOT) 10, Alanine Aminotransferase (ALT/SGPT) 20, Alkaline Phosphatase 151H, Total Protein 4.9L, Albumin 1.7L, Albumin/Globulin Ratio 0.5, Vitamin B12 Level 524, Folate 2.9 CBC/BMP Laboratory Tests 12/06/20 06:01 KASEY MEDRANO MD Dec 06, 2020 18:07
[2020-12-06 19:39] LABS: BLOOD UREA NITROGEN 19 MG/DL (7-18); CALCIUM LEVEL 7.9 MG/DL (8.8-10.2); CARBON DIOXIDE LEVEL 17 MEQ/L (21-32); CHLORIDE LEVEL 122 MEQ/L (98-107); CREATININE FOR GFR 1.12 MG/DL (0.70-1.30); GLOMERULAR FILTRATION RATE > 60.0 (>35); GLUCOSE, FASTING 120 MG/DL (70-100); POTASSIUM SERUM 3.6 MEQ/L (3.5-5.1); SODIUM LEVEL 146 MEQ/L (136-145)
[2020-12-06 20:13] LABS: CLOSTRIDIUM DIFFICILE PCR NEGATIVE (NEGATIVE)
[2020-12-06] MEDS ORDERED: LOPERAMIDE 2 MG CAPLET PO SCH (21:00)
[2020-12-07 02:00] VITALS: BP 139/68
[2020-12-07] MEDS: SODIUM CHLORIDE 0.9% INJ 10 ML SYR IV SCH ×2 (05:00→17:36)
[2020-12-07 05:12] LABS: BASO # 0.1 10^3/uL (0.0-0.2); BASO % 0.6 % (0.0-1.0); EOS # 0.3 10^3/uL (0.0-0.5); HEMATOCRIT 28.5 % (42.0-52.0); HEMOGLOBIN 8.9 g/dl (13.5-17.5); LYMPH # 1.5 10^3/uL (1.5-5.0); LYMPH % 18.7 % (24.0-44.0); MEAN CORPUSCULAR HEMOGLOBIN 25.6 pg (27.0-33.0); MEAN CORPUSCULAR HGB CONC 31.2 g/dl (32.0-36.5); MEAN CORPUSCULAR VOLUME 81.9 fl (80.0-96.0); MONO # 0.5 10^3/uL (0.0-0.8); MONO % 6.2 % (2.0-8.0); NEUTROPHILS # 5.7 10^3/uL (1.5-8.5); NEUTROPHILS % 69.9 % (36.0-66.0); PLATELET COUNT, AUTOMATED 421 10^3/uL (150-450); RED BLOOD COUNT 3.48 10^6/uL (4.30-6.10); WHITE BLOOD COUNT 8.2 10^3/uL (4.0-10.0)
[2020-12-07 05:47] LABS: ALBUMIN 1.9 GM/DL (3.2-5.2); ALT/SGPT 17 U/L (12-78); BILIRUBIN,TOTAL 0.4 MG/DL (0.2-1.0); BLOOD UREA NITROGEN 17 MG/DL (7-18); CALCIUM LEVEL 7.9 MG/DL (8.8-10.2); CARBON DIOXIDE LEVEL 18 MEQ/L (21-32); CHLORIDE LEVEL 121 MEQ/L (98-107); GLOMERULAR FILTRATION RATE > 60.0 (>35); GLUCOSE, FASTING 95 MG/DL (70-100); MAGNESIUM LEVEL 1.8 MG/DL (1.8-2.4); POTASSIUM SERUM 3.5 MEQ/L (3.5-5.1); SODIUM LEVEL 145 MEQ/L (136-145)
[2020-12-07 06:00] VITALS: BP 134/63
[2020-12-07 10:00] VITALS: BP 146/64
[2020-12-07] MEDS: ENOXAPARIN 40MG/0.4ML SYRINGE (J1650 PER 10MG) SC SCH (10:05)
[2020-12-07] MEDS: TAMSULOSIN 0.4 MG CAP PO SCH ×2 (10:06→20:40)
[2020-12-07] MEDS: PANTOPRAZOLE 40MG TAB (PROTONIX) PO SCH ×2 (10:06→20:40)
[2020-12-07] MEDS: POTASSIUM CHLORIDE 10 MEQ SR TABLET PO SCH (10:06)
[2020-12-07] MEDS: LACTOBACILLUS ACIDOPHILUS CAP (BACID) PO SCH (10:06)
[2020-12-07] MEDS: IRON SUCROSE 250 MG in NS 250 ML IV SCH (10:06)
[2020-12-07 14:00] VITALS: BP 106/59
--- NOTE | 2020-12-07 14:36 | IPN ---
PROGRESS NOTE DATE: 12/06/2020 SUBJECTIVE: The patient has been afebrile. However he has had significant stool/ostomy output and they have had significant problems with the ostomy itself and there are questions whether his ostomy itself is poorly healing, and I was asked to see the patient for this. On his physical exam is ostomy wafer was being pulled off his incision. His ostomy itself has pulled away from the skin edges and no other significant abnormalities are appreciated. It does not look like it is retracting in as much as I would expect it to, given the retraction away from the skin edges, but this is functioning well but the ostomy output is very liquid at this time. IMPRESSION AND PLAN: The patient has evidence of significant diarrhea out of the ostomy itself. I would recommend checking C-diff, start him on some probiotics and starting him on some Imodium. We will see how he is doing in the morning. If it really has not slowed down much overnight, then we may change him over to Lomotil. I do feel that his wound will eventually heal in by secondary intention, and from the standpoint of his midline incision, he had his operative intervention twelve days ago. When we hit the fourteen day trey, I feel that it is reasonable to discontinue the matheus, or at least some of the matheus and see if he tolerates that. If he does that, then we may be able to remove those and the wafers might fit a little bit better on his skin.
--- NOTE | 2020-12-07 15:39 | IPNPDOC ---
Date Seen The patient was seen on 12/07/20. Progress Note SUBJECTIVE: Patient seen and examined at bedside. Continues to have copious output through the stoma however diminished slightly since last night. Patient shows a significant concern about being placed in a nursing facility and would very much like to return home. I explained that he needs to show better ability to change the stoma bags to care for his own output. She denies any chest pain shortness of breath palpitations diarrhea abdominal pain. OBJECTIVE PHYSICAL EXAMINATION: VITAL SIGNS: please see below General: NAD, comfortable HEENT: PERRLA, EOMI, sclerae clear Neck: supple, normal ROM, no JVD Respiratory: lungs CTAB, no wheeze, no rales, no crackles CVS: RRR, normal S1, S2, no murmurs Abdo: Dressing clean dry intact. Ostomy slightly retracted Extremities: no edema, pulses 2+ MSK: no joint deformities, normal ROM Neuro: no focal neuro deficits, moving all 4 extremities, CN2-12 intact. Strength 5/5 in all 4 extremities. No nystagmus. Psych: calm, cooperative, AAO x 3 LABORATORY DATA, IMAGING STUDIES, MICROBIOLOGY: Please see below. DVT prophylaxis ordered?: TEDs ASSESSMENT AND PLAN: 89 y/o M DNR/DNI with past medical history of BPH, urine retention, constipation, diverticular disease, skin ca, colon surgery 04/2012, hernia repair 1999 presented to the emergency room with nausea and vomiting and increasing abdominal distention with no flatus, and worsening generalized dull pain all over the abdomen. His Daughter calls every morning, and when he did not answer, she came over and found him in bed not feeling well. In the ER, ct abd/pelvis: ?intussussception. diverticulitis. Patient was initially managed consult for doubly with n.p.o. NG tube IV fluids, bowel meds however his abdominal distention did not improve so he was taken to the OR and found to have sigmoid colon mass. He had sigmoid colectomy and colostomy creation on 11/25/2020. 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 Colostomy output is slowing down. Status post TPN Tolerating regular diet some drainage from the lower part of incision. Some of the matheus have been removed. Concern for dusky ostomy, and eschar on midline incision I spoke to Dr. Salter and requested a reevaluation of the stoma. Pending recommendations. General surgery recommendations are greatly appreciated. We started patient on imodium. We checked c diff pcr which is negative. Matheus were removed. No concern over ostomy retraction per Dr. Salter. Hypokalemia and hypomagnesemia resolved. Acute on chronic anemia Likely due to dilution from postoperative fluid resuscitation, hematuria and also some amount of blood loss during surgery. No overt GI bleeding at this time patient was transfused 1 unit pRBC on 12/07/20. hgb improved to 8.9 from 7.4, as expected. New left lower lobe infiltrate questionable pneumonia Status post IV Zosyn Changed to IV meropenem on 11/24/2020 due to worsening white count. Finished 7 days of meropenem. Acute kidney injury Resolved Gross hematuria with clots causing blockage of gottlieb. Patient says he usually gets gross hematuria at home which resolves on its own. Not on any antiplatelet or anticoagulants Here likely aggravated by Gottlieb and trauma from pulling on it. When gottlieb was changed to a [address] way for CBI it looked like the balloon had been displaced into the urethra probably thats why he had started hematuria. Urine is now clear and patient is off CBI. d/w Dr. Yang. removed gottlieb seems to voiding with small amount of retention. Last residual ~120 cc. BPH / Urine retention /Intermittent hematuria Continue flomax. repeat PVRs. If continues to retain, will replace gottlieb cath. Possible dysphagia and aspiration Aspiration precaution. ordered speech therapy, recommended to return to baseline level 2 diet. No dysphagia present. Moderate pulmonary hypertension with moderate tricuspid insufficiency Disposition: Likely patient will go home with 24 into seven care provided by daughter. I have left a VM with the patient's daughter Oralia Garcia (tel: [phone]). VS, I&O, 24H, Fishbone Vital Signs/I&O Vital Signs Date Time Temp Pulse Resp B/P (MAP) Pulse Ox O2 Delivery O2 Flow Rate FiO2 12/07/20 10:00 97.9 73 17 146/64 (91) 99 Room Air I&O- Last 24 Hours up to 6 AM 8/21/21 06:00 Intake Total 1442.5 ml Output Total 1530 ml Balance -87.5 ml Laboratory Data 24H LABS Laboratory Tests 2 12/06/20 18:54: Clostridium difficile [id number] PRESUMPTIVE NEGATIVE, Clostridium difficile Toxin (PCR) NEGATIVE 12/06/20 18:55: Anion Gap 7L, Glomerular Filtration Rate > 60.0, Calcium Level 7.9L 12/07/20 05:01: Anion Gap 6L, Glomerular Filtration Rate > 60.0, Calcium Level 7.9L, Immature Granulocyte % (Auto) 0.6, Neutrophils (%) (Auto) 69.9H, Lymphocytes (%) (Auto) 18.7L, Monocytes (%) (Auto) 6.2, Eosinophils (%) (Auto) 4.0H, Basophils (%) (Aut o) 0.6, Neutrophils # (Auto) 5.7, Lymphocytes # (Auto) 1.5, Monocytes # (Auto) 0.5, Eosinophils # (Auto) 0.3, Basophils # (Auto) 0.1, Nucleated Red Blood Cells % (auto) 0.0, Magnesium Level 1.8, Total Bilirubin 0.4, Aspartate Amino Transf (AST/SGOT) 8, Alanine Aminotransferase (ALT/SGPT) 17, Alkaline Phosphatase 161H, Total Protein 5.0L, Albumin 1.9L, Albumin/Globulin Ratio 0.6 CBC/BMP Laboratory Tests 12/06/20 18:55 12/07/20 05:01 KASEY MEDRANO MD Dec 07, 2020 15:39
[2020-12-07] MEDS: LOMOTIL 2.5MG/0.025MG TABLET PO SCH ×2 (17:34→20:40)
[2020-12-07 18:00] VITALS: BP 118/49
--- NOTE | 2020-12-07 19:46 | IPN ---
PROGRESS NOTE DATE: 12/07/2020 SUBJECTIVE: Patient has been afebrile. His ostomy output, he thinks, has slowed down to some extent, although when I am looking at it, it is quite liquid and there is a lot of watery bile in this itself. There are no other significant abnormalities and fortunately, it is not leaking around the wafer or through the wafer today. His skin is somewhat macerated in this area still. His ostomy is pink otherwise. IMPRESSION/PLAN: Patient has some improvement of his liquid stool, but I still would like to try him in some Lomotil instead and see if we cannot slow this down a little more and that will make the ostomy more treatable and have less difficulties with the ostomy wafer itself. From my standpoint, this individual may benefit from a rehabilitation stay for ostomy care/teaching. However, he states that he has a lot of help at home with two family members who are emergency director medical surgical (switchboard troubleshooter), thus states that they will be taking care of the ostomy. I would feel that once he is stable from a medical standpoint, not becoming dehydrated from the significant ostomy output, then he should be able to be discharged to home or to rehabilitation at any time.
[2020-12-07 22:00] VITALS: BP 131/64
[2020-12-08 02:00] VITALS: BP 143/61
[2020-12-08] MEDS: ACETAMINOPHEN TAB 650MG DOSE (2X325MG) PO PRN ×2 (02:35→20:24)
[2020-12-08] MEDS: SODIUM CHLORIDE 0.9% INJ 10 ML SYR IV SCH ×2 (05:34→17:23)
[2020-12-08 05:50] LABS: BASO # 0.1 10^3/uL (0.0-0.2); BASO % 0.7 % (0.0-1.0); EOS # 0.4 10^3/uL (0.0-0.5); EOS % 4.9 % (0.0-3.0); HEMATOCRIT 26.9 % (42.0-52.0); HEMOGLOBIN 8.4 g/dl (13.5-17.5); LYMPH # 1.4 10^3/uL (1.5-5.0); LYMPH % 17.7 % (24.0-44.0); MEAN CORPUSCULAR HEMOGLOBIN 25.5 pg (27.0-33.0); MEAN CORPUSCULAR HGB CONC 31.2 g/dl (32.0-36.5); MEAN CORPUSCULAR VOLUME 81.8 fl (80.0-96.0); MONO # 0.5 10^3/uL (0.0-0.8); MONO % 6.5 % (2.0-8.0); NEUTROPHILS # 5.3 10^3/uL (1.5-8.5); NEUTROPHILS % 69.3 % (36.0-66.0); PLATELET COUNT, AUTOMATED 397 10^3/uL (150-450); RED BLOOD COUNT 3.29 10^6/uL (4.30-6.10); WHITE BLOOD COUNT 7.7 10^3/uL (4.0-10.0)
[2020-12-08 06:00] VITALS: BP 119/57
[2020-12-08 06:11] LABS: ALBUMIN 1.6 GM/DL (3.2-5.2); ALT/SGPT 15 U/L (12-78); BILIRUBIN,TOTAL 0.3 MG/DL (0.2-1.0); BLOOD UREA NITROGEN 16 MG/DL (7-18); CALCIUM LEVEL 7.6 MG/DL (8.8-10.2); CARBON DIOXIDE LEVEL 19 MEQ/L (21-32); CHLORIDE LEVEL 121 MEQ/L (98-107); GLOMERULAR FILTRATION RATE > 60.0 (>35); GLUCOSE, FASTING 83 MG/DL (70-100); MAGNESIUM LEVEL 1.6 MG/DL (1.8-2.4); POTASSIUM SERUM 3.5 MEQ/L (3.5-5.1); SODIUM LEVEL 145 MEQ/L (136-145)
[2020-12-08] MEDS: ENOXAPARIN 40MG/0.4ML SYRINGE (J1650 PER 10MG) SC SCH (09:40)
[2020-12-08] MEDS: PANTOPRAZOLE 40MG TAB (PROTONIX) PO SCH ×2 (09:40→20:15)
[2020-12-08] MEDS: LACTOBACILLUS ACIDOPHILUS CAP (BACID) PO SCH (09:40)
[2020-12-08] MEDS: TAMSULOSIN 0.4 MG CAP PO SCH ×2 (09:40→20:15)
[2020-12-08] MEDS: MAG SULF 1GM/100ML (MAG RUN) 1 GM in IV 1 EA IV SCH ×2 (09:41→11:00)
[2020-12-08] MEDS: POTASSIUM CHLORIDE 10 MEQ SR TABLET PO SCH (09:41)
[2020-12-08] MEDS: LOMOTIL 2.5MG/0.025MG TABLET PO SCH ×3 (09:41→20:15)
--- NOTE | 2020-12-08 09:53 | REP ---
INDICATION: elevated alp COMPARISON: None. TECHNIQUE: Real time malave scale ultrasound examination using curved array transducer. FINDINGS: Liver is normal in contour, size, and echogenicity without focal hepatic lesions identified. Pancreas is incompletely evaluated due to interposed bowel gas and overlying bandage material. The gallbladder is normal and without gallstones, wall thickening, or pericholecystic fluid. No biliary ductal dilatation is appreciated and the common bile duct measures 4.4 mm diameter. Right kidney demonstrates cortical thinning and increased central sinus fat consistent with age-related renal disease. No hydronephrosis. Kidney measures 10.8 x 5.3 x 3.3 cm with a 5.7 cm cyst confirmed by CT examinations dating through 2012. No ascites in the visualized right upper quadrant. IMPRESSION: No obvious acute abnormality by sonographic evaluation. <Electronically signed by Josh Rodriguez > 12/08/20 0949
[2020-12-08 10:00] VITALS: BP 110/56
[2020-12-08 14:00] VITALS: BP 110/52
--- NOTE | 2020-12-08 15:12 | IPNPDOC ---
Date Seen The patient was seen on 12/08/20. Progress Note SUBJECTIVE: Patient seen and examined at bedside. Continues to have copious output through the stoma however diminished slightly since last night. Patient shows a significant concern about being placed in a nursing facility and would very much like to return home. I explained that he needs to show better ability to change the stoma bags to care for his own output. She denies any chest pain shortness of breath palpitations diarrhea abdominal pain. OBJECTIVE PHYSICAL EXAMINATION: VITAL SIGNS: please see below General: NAD, comfortable HEENT: PERRLA, EOMI, sclerae clear Neck: supple, normal ROM, no JVD Respiratory: lungs CTAB, no wheeze, no rales, no crackles CVS: RRR, normal S1, S2, no murmurs Abdo: Dressing clean dry intact. Ostomy slightly retracted Extremities: no edema, pulses 2+ MSK: no joint deformities, normal ROM Neuro: no focal neuro deficits, moving all 4 extremities, CN2-12 intact. Strength 5/5 in all 4 extremities. No nystagmus. Psych: calm, cooperative, AAO x 3 LABORATORY DATA, IMAGING STUDIES, MICROBIOLOGY: Please see below. DVT prophylaxis ordered?: TEDs ASSESSMENT AND PLAN: 89 y/o M DNR/DNI with past medical history of BPH, urine retention, constipation, diverticular disease, skin ca, colon surgery 04/2012, hernia repair 1999 presented to the emergency room with nausea and vomiting and increasing abdominal distention with no flatus, and worsening generalized dull pain all over the abdomen. His Daughter calls every morning, and when he did not answer, she came over and found him in bed not feeling well. In the ER, ct abd/pelvis: ?intussussception. diverticulitis. Patient was initially managed consult for doubly with n.p.o. NG tube IV fluids, bowel meds however his abdominal distention did not improve so he was taken to the OR and found to have sigmoid colon mass. He had sigmoid colectomy and colostomy creation on 11/25/2020. 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 Colostomy output is slowing down. Status post TPN Tolerating regular diet some drainage from the lower part of incision. Some of the matheus have been removed. Concern for dusky ostomy, and eschar on midline incision I spoke to Dr. Salter and requested a reevaluation of the stoma. General surgery recommendations are greatly appreciated. We started patient on imodium which improved the but slightly better goes and switched him over to Lomotil. We checked c diff pcr which is negative. Cuttyhunk will be removed a day 14 postop which is 12/09/2020 No concern over ostomy retraction per Dr. Salter. Hypokalemia and hypomagnesemia resolved. Acute on chronic anemia Likely due to dilution from postoperative fluid resuscitation, hematuria and also some amount of blood loss during surgery. No overt GI bleeding at this time patient was transfused 1 unit pRBC on 12/07/20. hgb remains stable New left lower lobe infiltrate questionable pneumonia Status post IV Zosyn Changed to IV meropenem on 11/24/2020 due to worsening white count. Finished 7 days of meropenem. Acute kidney injury Resolved Gross hematuria with clots causing blockage of gottlieb. Patient says he usually gets gross hematuria at home which resolves on its own. Not on any antiplatelet or anticoagulants Here likely aggravated by Gottlieb and trauma from pulling on it. When gottlieb was changed to a 3 way for CBI it looked like the balloon had been displaced into the urethra probably thats why he had started hematuria. Urine is now clear and patient is off CBI. d/w Dr. Yang. removed gottlieb Discussed with nursing, patient has not been retaining retaining and he is draining spontaneously clear urine without blood BPH / Urine retention /Intermittent hematuria Continue flomax. Patient is no longer retaining will go home with. Possible dysphagia and aspiration Aspiration precaution. ordered speech therapy, recommended to return to baseline level 2 diet. No dysphagia present. Moderate pulmonary hypertension with moderate tricuspid insufficiency Disposition: Likely patient will go home with 24 into seven care provided by daughter. I spoke with patient's daughter Oralia Garcia (tel: ). She is coming in this afternoon for training on stoma care. VS, I&O, 24H, Fishbone Vital Signs/I&O Vital Signs Date Time Temp Pulse Resp B/P (MAP) Pulse Ox O2 Delivery O2 Flow Rate FiO2 12/08/20 10:00 98.7 70 18 110/56 (74) 99 Room Air I&O- Last 24 Hours up to 6 AM 12/08/20 05:59 Intake Total 2390 ml Output Total 1275 ml Balance 1115 ml Laboratory Data 24H LABS Laboratory Tests 2 12/08/20 05:31: Anion Gap 5L, Glomerular Filtration Rate > 60.0, Calcium Level 7.6L, Magnesium Level 1.6L, Total Bilirubin 0.3, Aspartate Amino Transf (AST/SGOT) 10, Alanine Aminotransferase (ALT/SGPT) 15, Alkaline Phosphatase 138H, Total Protein 5.0L, Albumin 1.6L, Albumin/Globulin Ratio 0.5 12/08/20 05:32: Immature Granulocyte % (Auto) 0.9, Neutrophils (%) (Auto) 69.3H, Lymphocytes (%) (Auto) 17.7L, Monocytes (%) (Auto) 6.5, Eosinophils (%) (Auto) 4.9H, Basophils (%) (Auto) 0.7, Neutrophils # (Auto) 5.3, Lymphocytes # (Auto) 1.4L, Monocytes # (Auto) 0.5, Eosinophils # (Auto) 0.4, Basophils # (Auto) 0.1, Nucleated Red Blood Cells % (auto) 0.0 CBC/BMP Laboratory Tests 12/08/20 05:31 12/08/20 05:32 KASEY MEDRANO MD Dec 08, 2020 15:12
[2020-12-08 18:00] VITALS: BP 116/49
[2020-12-08 22:00] VITALS: BP 115/50
[2020-12-09 02:00] VITALS: BP 119/56
[2020-12-09] MEDS: SODIUM CHLORIDE 0.9% INJ 10 ML SYR IV SCH ×2 (05:38→18:20)
[2020-12-09 06:00] VITALS: BP 117/61
[2020-12-09 06:10] LABS: BASO # 0.1 10^3/uL (0.0-0.2); BASO % 0.9 % (0.0-1.0); EOS # 0.6 10^3/uL (0.0-0.5); EOS % 7.3 % (0.0-3.0); HEMATOCRIT 26.6 % (42.0-52.0); HEMOGLOBIN 8.4 g/dl (13.5-17.5); LYMPH # 1.6 10^3/uL (1.5-5.0); MEAN CORPUSCULAR HEMOGLOBIN 25.6 pg (27.0-33.0); MEAN CORPUSCULAR HGB CONC 31.6 g/dl (32.0-36.5); MEAN CORPUSCULAR VOLUME 81.1 fl (80.0-96.0); MONO # 0.5 10^3/uL (0.0-0.8); MONO % 6.5 % (2.0-8.0); NEUTROPHILS # 4.8 10^3/uL (1.5-8.5); NEUTROPHILS % 63.9 % (36.0-66.0); PLATELET COUNT, AUTOMATED 405 10^3/uL (150-450); RED BLOOD COUNT 3.28 10^6/uL (4.30-6.10); WHITE BLOOD COUNT 7.5 10^3/uL (4.0-10.0)
[2020-12-09 06:29] LABS: ALBUMIN 1.6 GM/DL (3.2-5.2); ALT/SGPT 13 U/L (12-78); BILIRUBIN,TOTAL 0.3 MG/DL (0.2-1.0); BLOOD UREA NITROGEN 17 MG/DL (7-18); CALCIUM LEVEL 7.4 MG/DL (8.8-10.2); CARBON DIOXIDE LEVEL 20 MEQ/L (21-32); CHLORIDE LEVEL 119 MEQ/L (98-107); CREATININE FOR GFR 1.18 MG/DL (0.70-1.30); GLOMERULAR FILTRATION RATE > 60.0 (>35); GLUCOSE, FASTING 81 MG/DL (70-100); MAGNESIUM LEVEL 2.1 MG/DL (1.8-2.4); SODIUM LEVEL 143 MEQ/L (136-145); TOTAL PROTEIN 4.8 GM/DL (6.4-8.2)
[2020-12-09] MEDS: PANTOPRAZOLE 40MG TAB (PROTONIX) PO SCH ×2 (09:39→20:23)
[2020-12-09] MEDS: LACTOBACILLUS ACIDOPHILUS CAP (BACID) PO SCH (09:39)
[2020-12-09] MEDS: LOMOTIL 2.5MG/0.025MG TABLET PO SCH ×3 (09:39→20:23)
[2020-12-09] MEDS: ENOXAPARIN 40MG/0.4ML SYRINGE (J1650 PER 10MG) SC SCH (09:40)
[2020-12-09] MEDS: TAMSULOSIN 0.4 MG CAP PO SCH ×2 (09:40→20:23)
[2020-12-09] MEDS: POTASSIUM CHLORIDE 10 MEQ SR TABLET PO SCH (09:40)
--- NOTE | 2020-12-09 09:52 | IPNPDOC ---
Date Seen The patient was seen on 12/09/20. Progress Note SUBJECTIVE: Patient seen and examined at bedside. Patient seen examined at bedside. Doing well. Lomotil has slowed down the stoma output significantly approximately 300 cc overnight. Patient seen working with physical therapy. In good spirits denies any fevers chills chest pain shortness of palpitation nausea vomiting diarrhea. Per daughter plan was to take him home tomorrow on 82/. However I was informed that family left yesterday before adequate training and stoma care can be provided. I discussed this with PFS. OBJECTIVE PHYSICAL EXAMINATION: VITAL SIGNS: please see below General: NAD, comfortable HEENT: PERRLA, EOMI, sclerae clear Neck: supple, normal ROM, no JVD Respiratory: lungs CTAB, no wheeze, no rales, no crackles CVS: RRR, normal S1, S2, no murmurs Abdo: Dressing clean dry intact. Ostomy slightly retracted Extremities: no edema, pulses 2+ MSK: no joint deformities, normal ROM Neuro: no focal neuro deficits, moving all 4 extremities, CN2-12 intact. Strength 5/5 in all 4 extremities. No nystagmus. Psych: calm, cooperative, AAO x 3 LABORATORY DATA, IMAGING STUDIES, MICROBIOLOGY: Please see below. DVT prophylaxis ordered?: TEDs ASSESSMENT AND PLAN: 89 y/o M DNR/DNI with past medical history of BPH, urine retention, constipation, diverticular disease, skin ca, colon surgery 04/2012, hernia repair 1999 presented to the emergency room with nausea and vomiting and increasing abdominal distention with no flatus, and worsening generalized dull pain all over the abdomen. His Daughter calls every morning, and when he did not answer, she came over and found him in bed not feeling well. In the ER, ct abd/pelvis: ?intussussception. diverticulitis. Patient was initially managed consult for doubly with n.p.o. NG tube IV fluids, bowel meds however his ab dominal distention did not improve so he was taken to the OR and found to have sigmoid colon mass. He had sigmoid colectomy and colostomy creation on 11/25/2020. 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 Colostomy output is slowing down. Status post TPN Tolerating regular diet some drainage from the lower part of incision. Some of the matheus have been removed. Concern for dusky ostomy, and eschar on midline incision I spoke to Dr. Salter and requested a reevaluation of the stoma. General surgery recommendations are greatly appreciated. We started patient on imodium which improved the but slightly better goes and switched him over to Lomotil. We checked c diff pcr which is negative. Matheus to be removed a day 14 postop which is 12/09/2020 No concern over ostomy retraction per Dr. Salter. Hypokalemia and hypomagnesemia resolved. Acute on chronic anemia Likely due to dilution from postoperative fluid resuscitation, hematuria and also some amount of blood loss during surgery. No overt GI bleeding at this time patient was transfused 1 unit pRBC on 12/07/20. hgb remains stable at 8.4 Elevated ALP Liver ultrasound on 12/08/2020 showed no acute abnormalities. New left lower lobe infiltrate questionable pneumonia Status post IV Zosyn Changed to IV meropenem on 11/24/2020 due to worsening white count. Finished 7 days of meropenem. Acute kidney injury Resolved Gross hematuria with clots causing blockage of gottlieb. Patient says he usually gets gross hematuria at home which resolves on its own. Not on any antiplatelet or anticoagulants Here likely aggravated by Gottlieb and trauma from pulling on it. When gottlieb was changed to a 3 way for CBI it looked like the balloon had been displaced into the urethra probably thats why he had started hematuria. Urine is now clear and patient is off CBI. d/w Dr. Yang. removed gottlieb Discussed with nursing, patient has not been retaining urine and he is draining spontaneously clear urine without blood BPH / Urine retention /Intermittent hematuria Continue flomax. Patient is no longer retaining Possible dysphagia and aspiration Aspiration precaution. ordered speech therapy, recommended to return to baseline level 2 diet. No dysphagia present. Moderate pulmonary hypertension with moderate tricuspid insufficiency Disposition: Likely patient will go home with 24 into seven care provided by daughter. I spoke with patient's daughter Oralia Garcia (tel: [phone]), plan was to receive stoma care on 12/08/2020. However was informed by nursing the patient's family left without training. Tentatively the plan was for discharge on 12/10/2020. I discussed this with PFS we will attempt to contact the family again and figure out an accurate date for discharge. VS, I&O, 24H, Fishbone Vital Signs/I&O Vital Signs Date Time Temp Pulse Resp B/P (MAP) Pulse Ox O2 Delivery O2 Flow Rate FiO2 12/09/20 06:00 97.5 67 20 117/61 (79) 98 Room Air I&O- Last 24 Hours up to 6 AM 12/09/20 05:59 Intake Total 1070 ml Output Total 725 ml Balance 345 ml Laboratory Data 24H LABS Laboratory Tests 2 12/09/20 05:45: Immature Granulocyte % (Auto) 0.4, Neutrophils (%) (Auto) 63.9, Lymphocytes (%) (Auto) 21.0L, Monocytes (%) (Auto) 6.5, Eosinophils (%) (Auto) 7.3H, Basophils (%) (Auto) 0.9, Neutrophils # (Auto) 4.8, Lymphocytes # (Auto) 1.6, Monocytes # (Auto) 0.5, Eosinophils # (Auto) 0.6H, Basophils # (Auto) 0.1, Nucleated Red Blood Cells % (auto) 0.0, Anion Gap 4L, Glomerular Filtration Rate > 60.0, Calcium Level 7.4L, Magnesium Level 2.1, Total Bilirubin 0.3, Aspartate Amino Transf (AST/SGOT) 9, Alanine Aminotransferase (ALT/SGPT) 13, Alkaline Phosphatase 149H, Total Protein 4.8L, Albumin 1.6L, Albumin/Globulin Ratio 0.5 CBC/BMP Laboratory Tests 12/09/20 05:45 KASEY MEDRANO MD Dec 09, 2020 09:52
[2020-12-09 10:00] VITALS: BP 118/60
[2020-12-09 14:00] VITALS: BP 104/54
[2020-12-09 18:00] VITALS: BP 118/58
[2020-12-09] MEDS: ACETAMINOPHEN TAB 650MG DOSE (2X325MG) PO PRN (20:23)
[2020-12-09 22:00] VITALS: BP 119/57
[2020-12-10 02:00] VITALS: BP 113/58
[2020-12-10] MEDS: SODIUM CHLORIDE 0.9% INJ 10 ML SYR IV SCH (05:42)
[2020-12-10 06:00] VITALS: BP 121/56
[2020-12-10 06:08] LABS: BASO # 0.1 10^3/uL (0.0-0.2); BASO % 0.8 % (0.0-1.0); EOS # 0.5 10^3/uL (0.0-0.5); HEMATOCRIT 28.3 % (42.0-52.0); HEMOGLOBIN 8.8 g/dl (13.5-17.5); LYMPH # 1.4 10^3/uL (1.5-5.0); LYMPH % 13.4 % (24.0-44.0); MEAN CORPUSCULAR HEMOGLOBIN 25.7 pg (27.0-33.0); MEAN CORPUSCULAR HGB CONC 31.1 g/dl (32.0-36.5); MEAN CORPUSCULAR VOLUME 82.7 fl (80.0-96.0); MONO # 0.5 10^3/uL (0.0-0.8); MONO % 4.7 % (2.0-8.0); NEUTROPHILS # 7.7 10^3/uL (1.5-8.5); NEUTROPHILS % 75.6 % (36.0-66.0); PLATELET COUNT, AUTOMATED 420 10^3/uL (150-450); RED BLOOD COUNT 3.42 10^6/uL (4.30-6.10); WHITE BLOOD COUNT 10.2 10^3/uL (4.0-10.0)
[2020-12-10 06:35] LABS: ALBUMIN 1.7 GM/DL (3.2-5.2); ALT/SGPT 14 U/L (12-78); BILIRUBIN,TOTAL 0.3 MG/DL (0.2-1.0); BLOOD UREA NITROGEN 15 MG/DL (7-18); CALCIUM LEVEL 8.1 MG/DL (8.8-10.2); CARBON DIOXIDE LEVEL 19 MEQ/L (21-32); CHLORIDE LEVEL 117 MEQ/L (98-107); CREATININE FOR GFR 1.01 MG/DL (0.70-1.30); GLOMERULAR FILTRATION RATE > 60.0 (>35); GLUCOSE, FASTING 91 MG/DL (70-100); MAGNESIUM LEVEL 1.8 MG/DL (1.8-2.4); POTASSIUM SERUM 3.8 MEQ/L (3.5-5.1); SODIUM LEVEL 144 MEQ/L (136-145); TOTAL PROTEIN 4.9 GM/DL (6.4-8.2)
[2020-12-10] MEDS: ACETAMINOPHEN TAB 650MG DOSE (2X325MG) PO PRN (07:52)
[2020-12-10] MEDS: TAMSULOSIN 0.4 MG CAP PO SCH (09:35)
[2020-12-10] MEDS: LACTOBACILLUS ACIDOPHILUS CAP (BACID) PO SCH (09:35)
[2020-12-10] MEDS: ENOXAPARIN 40MG/0.4ML SYRINGE (J1650 PER 10MG) SC SCH (09:35)
[2020-12-10] MEDS: PANTOPRAZOLE 40MG TAB (PROTONIX) PO SCH (09:35)
[2020-12-10] MEDS: LOMOTIL 2.5MG/0.025MG TABLET PO SCH (09:35)
[2020-12-10] MEDS: POTASSIUM CHLORIDE 10 MEQ SR TABLET PO SCH (09:36)
[2020-12-10 10:00] VITALS: BP 111/56
[2020-12-10] MEDS ORDERED: DIPH2.5T15 PO (11:56)
--- NOTE | 2020-12-13 17:55 | DS.PDOC ---
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 HISTORY OF PRESENT ILLNESS: 89 y/o M DNR/DNI with past medical history of BPH, urine retention, constipation, diverticular disease, skin ca, colon surgery 04/2012, hernia repair 1999 presented to the emergency room with nausea and vomiting and increasing abdominal distention with no flatus, and worsening generalized dull pain all over the abdomen. His Daughter calls every morning, and when he did not answer, she came over and found him in bed not feeling well. In the ER, ct abd/pelvis: ?intussussception. diverticulitis. Patient was initially managed consult for doubly with n.p.o. NG tube IV fluids, bowel meds however his abdominal distention did not improve so he was taken to the OR and found to have sigmoid colon mass. He had sigmoid colectomy and colostomy creation on 11/25/2020. HOSPITAL COURSE: During the hospital stay the following issue addressed Sigmoid mass causing large bowel obstruction, adhesion causing internal hernia formation and partial small bowel obstruction obstruction in the right upper quadrant Status post sigmoid colectomy and colostomy creation on 11/25/2020 Biopsy shows invasive adenocarcinoma moderately differentiated, margins uninvolved, lymph nodes negative. Patient received treatment with TPN Tolerating regular diet Hypokalemia and hypomagnesemia resolved. Acute on chronic anemia Likely due to dilution from postoperative fluid resuscitation, hematuria and also some amount of blood loss during surgery. No overt GI bleeding at this time Elevated ALP Liver ultrasound on 12/08/2020 showed no acute abnormalities. New left lower lobe infiltrate questionable pneumonia Status post IV Zosyn Changed to IV meropenem on 11/24/2020 due to worsening white count. Finished 7 days of meropenem. Acute kidney injury Resolved Gross hematuria with clots causing blockage of gottlieb. Patient says he usually gets gross hematuria at home which resolves on its own. Not on any antiplatelet or anticoagulants Here likely aggravated by Gottlieb and trauma from pulling on it. When gottlieb was changed to a 3 way for CBI it looked like the balloon had been displaced into the urethra probably thats why he had started hematuria. Urine is now clear and patient is off CBI. d/w Dr. Yang. removed gottlieb BPH / Urine retention /Intermittent hematuria Continue flomax. Patient is no longer retaining DISCHARGE MEDICATIONS: Please see below. ALLERGIES: Please see below. PHYSICAL EXAMINATION ON DISCHARGE: VITAL SIGNS: Please see below. VITAL SIGNS: please see below General: NAD, comfortable HEENT: PERRLA, EOMI, sclerae clear Neck: supple, normal ROM, no JVD Respiratory: lungs CTAB, no wheeze, no rales, no crackles CVS: RRR, normal S1, S2, no murmurs Abdo: Dressing clean dry intact. Ostomy slightly retracted Extremities: no edema, pulses 2+ MSK: no joint deformities, normal ROM Neuro: no focal neuro deficits, moving all 4 extremities, CN2-12 intact. Strength 5/5 in all 4 extremities. No nystagmus. Psych: calm, cooperative, AAO x 3 LABORATORY DATA: Please see below. PROGNOSIS: Fair ACTIVITY: [As tolerated]. DIET: Regular, high-fiber DISPOSITION: 01 Home, Self-Care. ITEMS TO FOLLOWUP ON ON OUTPATIENT: Follow-up with surgical team and PCP DISCHARGE CONDITION: [Stable]. TIME SPENT ON DISCHARGE: 40minutes. Vital Signs/I&Os Vital Signs Date Time Temp Pulse Resp B/P (MAP) Pulse Ox O2 Delivery O2 Flow Rate FiO2 12/10/20 10:00 98.2 83 22 111/56 (74) 98 Room Air Discharge Medications Scheduled Diphenoxylate HCl/Atropine (Diphenoxylate-Atrop 2.5-0.025) 1 Each Tablet, 1 EA PO TID Omeprazole (Omeprazole) 20 Mg Cap, 40 MG PO DAILY, (Reported) Psyllium Husk (with Sugar) (Metamucil Powder) 575 Gm Powder, 1 PKT PO DAILY, (Reported) Tamsulosin HCl (Flomax) 0.4 Mg Cap, 0.4 MG PO BID, (Reported) Vit C/E/Zn/Coppr/Lutein/Zeaxan (Preservision Areds 2 Softgel) 1 Each Capsule, 1 CAP PO BID, (Reported) Zolpidem Tartrate (Zolpidem Tartrate) 10 Mg Tablet, 10 MG PO QHS, (Reported) Scheduled PRN Tramadol HCl (Tramadol HCl) 50 Mg Tablet, 50 MG PO TID PRN for PAIN LEVEL 1-6, (Reported) Allergies Coded Allergies: No Known Allergies (Unverified , 06/29/20) STEFAN NEWSOME DO Dec 13, 2020 17:55
== END 2020-12-10 15:10 | disposition home or self-care (01) | DRG 329 ==
LOC: M ED 10:47 → EDBD 10:47 → M ED INP 15:55 → ENRESERV 16:20 → M PCU 18:25 → M MSPAV 11-20 18:55
PROVIDERS: ADMIT General Practice; ATTEND Internal Medicine
PROC: 0DBN0ZX Excision of Sigmoid Colon, Open Approach, Diagnostic (ICD-10-PCS; 2020-11-25)
PROC: 0D1M0Z4 Bypass Descending Colon to Cutaneous, Open Approach (ICD-10-PCS; principal; 2020-11-25 19:00)
PROC: 02HV33Z Insertion of Infusion Device into Superior Vena Cava, Percutaneous Approach (ICD-10-PCS; 2020-11-26)
PROC: 30233N1 Transfusion of Nonautologous Red Blood Cells into Peripheral Vein, Percutaneous Approach (ICD-10-PCS; 2020-12-06)
DX: C18.7 Malignant neoplasm of sigmoid colon (principal); J18.9 Pneumonia, unspecified organism; K56.609 Unspecified intestinal obstruction, unspecified as to partial versus complete obstruction; N17.9 Acute kidney failure, unspecified; D62 Acute posthemorrhagic anemia; Z66 Do not resuscitate; N40.0 Benign prostatic hyperplasia without lower urinary tract symptoms; K57.30 Diverticulosis of large intestine without perforation or abscess without bleeding; Z79.899 Other long term (current) drug therapy; R31.0 Gross hematuria; E87.6 Hypokalemia; E83.42 Hypomagnesemia; D64.9 Anemia, unspecified; I27.20 Pulmonary hypertension, unspecified; I36.0 Nonrheumatic tricuspid (valve) stenosis; R13.10 Dysphagia, unspecified

== ENCOUNTER 2020-12-10 20:56 | Emergency (ER) | payer MEDICARE, OTHER ==
[~2020-12-10] VITALS: Ht 170.2 cm; Wt 56.8 kg
[~2020-12-10 20:56] MED LIST changes: +DIPH2.5T15 PO; +META28.32 PO; +PRES10CA2 PO; +TRAM50TA2 PO; +ZOLP10TA2 PO
[2020-12-10] MEDS ORDERED: LOMOTIL 2.5MG/0.025MG TABLET PO ONE (23:10)
[2020-12-10 23:45] VITALS: BP 117/60
== END 2020-12-11 00:04 | disposition home or self-care (01) ==
LOC: M ED 20:56
DX: K94.03 Colostomy malfunction (principal); T81.31XA Disruption of external operation (surgical) wound, not elsewhere classified, initial encounter; N40.0 Benign prostatic hyperplasia without lower urinary tract symptoms; K57.92 Diverticulitis of intestine, part unspecified, without perforation or abscess without bleeding; Z79.899 Other long term (current) drug therapy

== ENCOUNTER → 2021-01-27 | Outpatient (CLI) | payer OTHER ==
--- NOTE | 2021-01-28 09:22 | REP ---
INDICATION: STAGING COLON CANCER. COMPARISON: No prior PET-CT for comparison. Prior CT abdomen and pelvis 11/23/2020 reviewed. TECHNIQUE: After the intravenous administration of 8.75 mCi of FDG 18 triplane whole-body PET-CT was performed from the skull base to the mid thigh. FINDINGS: In the right lung middle lobe there is a 1.8 cm sized spiculated nodule. This level was not imaged on the prior CT scan of the abdomen and pelvis. The maximal SUV value of this spiculated nodule is 6.69. There is additional hypermetabolic activity seen in the midline anterior abdominal wall with a maximal SUV value of 5.01. This is at the site of the healing postsurgical wound. There is an additional small region of hypermetabolic activity seen in the right lower anterior abdominal wall with a maximal SUV value of 3.69. No other areas of abnormal hypermetabolic activity are seen in the neck, chest, abdomen, or pelvis. IMPRESSION: 1. There is a hypermetabolic spiculated right lung middle lobe nodule as described above. Whether this lesion represents a metastatic lesion or synchronous primary cannot be determined by this exam. There are no prior chest CTs for comparison. 2. Anterior abdominal wall hypermetabolism most consistent with healing from recent operative procedure performed 11/25/2020. <Electronically signed by Cristopher Henson > 01/28/21 0933
== END ==
LOC: M PLARAD 07:39
PROVIDERS: ATTEND Specialist
DX: C18.9 Malignant neoplasm of colon, unspecified (principal); R91.1 Solitary pulmonary nodule
CPT/HCPCS: 78815; A9552

== ENCOUNTER → 2021-02-18 | Outpatient (CLI) | payer OTHER ==
[~2021-02-18] MED LIST changes: +HOME MED LIST COMPLETE! XX SCH; +LIDOCAINE 1% MDV 20ML VIAL As Ordered ONE
--- NOTE | 2021-02-18 09:58 | REP ---
INDICATION: s/p lung biopsy. COMPARISON: 11/27/2020. TECHNIQUE: Single view chest. FINDINGS: There is a small right apical pneumothorax status post right lung biopsy. Ill-defined parenchymal opacities in the lung bases appear similar to the prior study. The heart is enlarged. There is a large hiatal hernia. IMPRESSION: Small right apical pneumothorax status post right lung biopsy. <Electronically signed by Pierce Brown > 02/18/21 0955
--- NOTE | 2021-02-18 11:52 | REP ---
INDICATION: s/p lung biopsy WITH EXPIRATION. COMPARISON: 02/18/2021, 9:48 a.m. TECHNIQUE: Two views chest. FINDINGS: The previously noted small right pneumothorax has decreased in size. The remainder of the study is unchanged. IMPRESSION: Decreased size of small right apical pneumothorax. <Electronically signed by Pierce Brown > 02/18/21 1141
[2021-02-18 12:00] VITALS: BP 159/77
--- NOTE | 2021-02-19 17:34 | REP ---
INDICATION: RT LOBE MASS. COMPARISON: None. TECHNIQUE: The procedure was performed under the direct supervision of Dr. Brown. The patient has a history of a hypermetabolic spiculated right lung middle lobe nodule seen on a previous PET scan dated 01/27/2021. The risks and benefits of the procedure were explained to the patient and informed consent was obtained. The right middle lobe lung nodule was localized using CT guidance. The skin was prepped and draped in a sterile fashion. 2 mL of 1% lidocaine was used as a local anesthetic. Using CT guidance a 19/20 gauge coaxial needle biopsy system was inserted and advanced into the nodule. Five core biopsy samples were obtained and sent to the lab. Post biopsy images demonstrate a right pneumothorax. Follow-up CT images 5 minutes later show an increase in the size of the right pneumothorax. At this time the patient's vital signs were stable. The patient stated no pain. His O2 saturations were 100% on room air. The patient was placed on 2 L of O2 via nasal cannula. Chest x-ray performed immediately after the procedure shows a small right apical pneumothorax. A chest x-ray performed 2 hours later show a decrease in the size of the small right apical pneumothorax. 2 hours post biopsy the patient stated no pain. His O2 saturations were 100% on room air. After the appropriate amount to monitor convalescence the patient was discharged from the department. Estimated blood loss: Less than 1 mL. FINDINGS: None IMPRESSION: CT-guided right middle lobe lung biopsy. The patient did develop a right pneumothorax as described above. <Electronically signed by Wei Dumont > 02/18/21 1517 <Electronically signed by Pierce Brown > 02/19/21 [id number]
== END ==
LOC: M IRPRO 08:27
PROVIDERS: ATTEND Specialist
DX: C78.01 Secondary malignant neoplasm of right lung (principal); C18.9 Malignant neoplasm of colon, unspecified; J95.811 Postprocedural pneumothorax

== ENCOUNTER → 2021-04-16 | Outpatient (CLI) | payer OTHER ==
[~2021-04-16] MED LIST changes: +CAPE1TAB2 PO; -HOME MED LIST COMPLETE! XX SCH; -LIDOCAINE 1% MDV 20ML VIAL As Ordered ONE
--- NOTE | 2021-04-16 09:32 | PFTRPT ---
Site: [facility], [address] [place] [address], [id number] ID: [id number] Name: STEVEN MALCOLM Visit Date: 04/16/2021 Second ID: [id number] Referring Doctor: Brenton Baregr M.D. Reviewing Doctor: Kane Tamez MD Network Controller: Carlos BURCIAGA RRT Age: 89 : 1930 Sex: Male Race: Height: 68.00 Inches Weight: 130.00 Lbs BSA: 1.70 Order IDs: [id number] Requested Test(s): <RESP-PFT.DLCO> Diagnosis: Malignant Neoplasm test meet the ATS standards for acceptability and repeatability. Review Status: Not Reviewed Pre-Bronch Post-Bronch Pred Actual %Pred Actual %Chng SPIROMETRY FVC (L) 3.29 3.18 96 FEV1 (L) 2.24 2.44 109 FEV1/FVC (%) 70 77 110 FEF 25% (L/sec) 5.52 6.17 111 FEF 50% (L/sec) 2.79 2.41 86 FEF 75% (L/sec) 0.52 0.74 143 FEF 25-75% (L/sec) 1.34 1.99 148 FEF Max (L/sec) 5.56 6.58 118 FIVC (L) 2.04 FIF 50% (L/sec) 3.97 2.40 60 FIF Max (L/sec) 2.50 MVV (L/min) 97 64 65 Expiratory Time (sec) 5.17 Back Extrap Vol (L) 0.12 Time To FEFmax (sec) 0.101 LUNG VOLUMES SVC (L) 3.95 3.44 87 IC (L) 3.02 1.55 51 ERV (L) 0.93 1.89 203 TGV (L) 3.66 3.42 93 RV (Pleth) (L) 2.73 1.53 55 TLC (Pleth) (L) 6.68 4.97 74 RV/TLC (Pleth) (%) 42 31 74 DIFFUSION DLCOunc (ml/min/mmHg) 20.95 8.02 38 DL/VA (ml/min/mmHg/L) 3.14 1.71 54 VA (L) 6.68 4.68 70 BHT (sec) 10.08 IVC (L) 2.75 TLC (SB) (L) 4.83 AIRWAYS RESISTANCE Raw (cmH2O/L/s) 1.45 0.76 52 Gaw (L/s/cmH2O) 1.03 1.33 129 sRaw (cmH2O*s) 4.76 2.40 50 sGaw (1/cmH2O*s) 0.20 0.43 212
== END ==
LOC: M CARPUL 08:57
PROVIDERS: ATTEND Specialist
DX: C18.7 Malignant neoplasm of sigmoid colon (principal)

== ENCOUNTER → 2021-09-02 | Outpatient (CLI) | payer MEDICARE, OTHER ==
[~2021-09-02] MED LIST changes: +TRIA1OI TOP; +UREA20CR4 TOP
== END ==
LOC: M ONCR 13:50
PROVIDERS: ATTEND General Practice
DX: C18.9 Malignant neoplasm of colon, unspecified (principal); C78.01 Secondary malignant neoplasm of right lung; Z80.42 Family history of malignant neoplasm of prostate; Z80.43 Family history of malignant neoplasm of testis; Z80.0 Family history of malignant neoplasm of digestive organs; Z87.891 Personal history of nicotine dependence; Z90.49 Acquired absence of other specified parts of digestive tract; Z92.21 Personal history of antineoplastic chemotherapy; Z93.3 Colostomy status

== ENCOUNTER → 2021-09-21 | Outpatient (CLI) | payer OTHER | LOC: M LABSMTC 09:18 | PROVIDERS: ATTEND Anesthesiology | DX: Z01.812 Encounter for preprocedural laboratory examination (principal); Z20.822 Contact with and (suspected) exposure to COVID-19 ==

== ENCOUNTER 2021-09-24 12:13 | Day surgery (SDC) | payer OTHER ==
[~2021-09-24] VITALS: Ht 170.2 cm; Wt 57.6 kg
[~2021-09-24 12:13] MED LIST changes: +LIDOCAINE 2% 100MG/5ML SDV (FOR ANES.) As Ordered ONE; +NS 1,000 ML IV ONE; +propofoL 200 MG/20 ML VIAL As Ordered ONE
[2021-09-24 14:05] VITALS: BP 129/68
== END 2021-09-24 14:17 | disposition home or self-care (01) ==
LOC: M OPP 12:13
PROVIDERS: ATTEND Surgery
DX: Z85.038 Personal history of other malignant neoplasm of large intestine (principal); Z08 Encounter for follow-up examination after completed treatment for malignant neoplasm; D12.6 Benign neoplasm of colon, unspecified; Z90.49 Acquired absence of other specified parts of digestive tract; Z92.3 Personal history of irradiation; Z92.21 Personal history of antineoplastic chemotherapy; Z79.899 Other long term (current) drug therapy; Z87.891 Personal history of nicotine dependence

== ENCOUNTER → 2021-10-24 | Outpatient (CLI) | payer MEDICARE, OTHER ==
[~2021-10-24] MED LIST changes: -LIDOCAINE 2% 100MG/5ML SDV (FOR ANES.) As Ordered ONE; -NS 1,000 ML IV ONE; -propofoL 200 MG/20 ML VIAL As Ordered ONE
== END ==
LOC: M RAD 11:04
PROVIDERS: ATTEND Specialist
DX: C18.9 Malignant neoplasm of colon, unspecified (principal); J44.9 Chronic obstructive pulmonary disease, unspecified; K44.9 Diaphragmatic hernia without obstruction or gangrene

== ENCOUNTER → 2021-11-14 | Outpatient (CLI) | payer MEDICARE, OTHER | LOC: M ONCR 10:01 | PROVIDERS: ATTEND General Practice | DX: Z08 Encounter for follow-up examination after completed treatment for malignant neoplasm (principal); Z85.038 Personal history of other malignant neoplasm of large intestine; Z85.118 Personal history of other malignant neoplasm of bronchus and lung; Z79.899 Other long term (current) drug therapy; Z80.0 Family history of malignant neoplasm of digestive organs; Z87.891 Personal history of nicotine dependence; Z92.21 Personal history of antineoplastic chemotherapy; Z93.3 Colostomy status; Z92.3 Personal history of irradiation ==

== ENCOUNTER → 2021-12-03 | Outpatient (CLI) | payer OTHER | LOC: M LABSMTC 10:10 | PROVIDERS: ATTEND Anesthesiology | DX: Z11.52 Encounter for screening for COVID-19 (principal) ==

== ENCOUNTER 2021-12-08 07:02 | Inpatient (IN) | payer OTHER ==
[~2021-12-08] VITALS: Ht 165.1 cm; Wt 64.2 kg
[2021-12-08] VITALS (7 sets, daily range): BP systolic 117–130; BP diastolic 62–67
[~2021-12-08 07:02] MED LIST changes: +ERTAPENEM SODIUM 1 GM in NS MINI-BAG PLUS 50 ML IV ONE
[2021-12-08] MEDS ORDERED: LR 1,000 ML IV SCH ×2 (07:15→13:45)
[2021-12-08] MEDS ORDERED: BUPIVACAINE HCL 0.25% 30ML VIAL As Ordered ONE (07:40)
[2021-12-08] MEDS ORDERED: fentaNYL 100 MCG/2 ML INJECTION As Ordered ONE ×2 (07:43→12:21)
[2021-12-08] MEDS ORDERED: dexameTHASONE 4 MG/ML 1ML VIAL (J1100 PER 1MG) As Ordered ONE (07:44)
[2021-12-08] MEDS ORDERED: ROCURONIUM BROMIDE 50 MG/5 ML VIAL As Ordered ONE ×2 (07:50→10:26)
[2021-12-08] MEDS ORDERED: propofoL 200 MG/20 ML VIAL As Ordered ONE (07:51)
[2021-12-08] MEDS ORDERED: LIDOCAINE 2% 100MG/5ML SDV (FOR ANES.) As Ordered ONE (07:51)
[2021-12-08] MEDS ORDERED: BUPIVACAINE/EPIN 0.25% 30 ML VIAL As Ordered ONE (08:41)
[2021-12-08] MEDS ORDERED: ACETAMINOPHEN 1000MG 100ML IV BTL (OFIRMEV) (J0131 PER 10MG) As Ordered ONE (08:55)
[2021-12-08] MEDS ORDERED: ONDANSETRON 4MG 2ML VIAL As Ordered ONE (08:55)
[2021-12-08] MEDS ORDERED: SUGAMMADEX SODIUM 500 MG/5 ML VIAL (BRIDION) As Ordered ONE (09:04)
[2021-12-08] MEDS ORDERED: ePHEDrine SULFATE 25 MG/5 ML(5MG/ML) SYRINGE As Ordered ONE ×2 (09:21→11:22)
[2021-12-08] MEDS ORDERED: LABETALOL 100MG/20ML VIAL As Ordered ONE (13:33)
[2021-12-08] MEDS ORDERED: ALBUTEROL SULFATE 2.5 MG/0.5 ML INH NEB SOLN INH ONE (13:45)
[2021-12-08] MEDS ORDERED: ONDANSETRON 4MG 2ML VIAL IV PRN ×2 (13:45→16:25)
[2021-12-08] MEDS ORDERED: fentaNYL 100 MCG/2 ML INJECTION IV PRN (13:45)
[2021-12-08] MEDS: HYDROMORPHONE HCL 0.5 MG/ 0.5 ML SYRINGE (J1170 PER 1) IV PRN ×2 (14:05→14:23)
[2021-12-08] MEDS: oxyCODONE 5MG TAB PO PRN ×2 (14:30→15:07)
[2021-12-08] MEDS ORDERED: PIPERACILLIN/TAZOBACTAM SOD 3.375 GM in D5W MINI-BAG PLUS 50 ML IV SCH (16:25)
[2021-12-08] MEDS ORDERED: NORCO, ANEXSIA 5/325MG TABLET (HYDROcodone/ACETAMINOPHEN) PO PRN ×2 (16:25)
[2021-12-08] MEDS: OMEPRAZOLE 20MG CAP PO SCH (17:19)
[2021-12-08] MEDS: NS 1,000 ML IV SCH (17:19)
[2021-12-08] MEDS: PIPERACILLIN/TAZOBACTAM SOD 2.25 GM in D5W MINI-BAG PLUS 50 ML IV SCH ×2 (17:19→23:15)
[2021-12-08] MEDS: SENOKOT S TAB PO SCH (23:15)
[2021-12-08] MEDS: TAMSULOSIN 0.4 MG CAP PO SCH (23:15)
[2021-12-09] VITALS (7 sets, daily range): BP systolic 108–145; BP diastolic 58–81
[2021-12-09] MEDS: KETOROLAC 30 MG/ML 1ML VIAL IV PRN ×2 (02:01→22:09)
[2021-12-09] MEDS: NS 1,000 ML IV SCH ×4 (02:01→22:49)
[2021-12-09] MEDS: PIPERACILLIN/TAZOBACTAM SOD 2.25 GM in D5W MINI-BAG PLUS 50 ML IV SCH ×4 (05:25→22:07)
[2021-12-09 06:55] LABS: HEMATOCRIT 33.8 % (42.0-52.0); HEMOGLOBIN 11.1 g/dl (13.5-17.5); MEAN CORPUSCULAR HEMOGLOBIN 28.7 pg (27.0-33.0); MEAN CORPUSCULAR HGB CONC 32.8 g/dl (32.0-36.5); MEAN CORPUSCULAR VOLUME 87.3 fl (80.0-96.0); PLATELET COUNT, AUTOMATED 170 10^3/uL (150-450); RED BLOOD COUNT 3.87 10^6/uL (4.30-6.10)
[2021-12-09 07:22] LABS: ALBUMIN 2.7 GM/DL (3.2-5.2); BILIRUBIN,TOTAL 0.6 MG/DL (0.2-1.0); CALCIUM LEVEL 7.9 MG/DL (8.8-10.2); CREATININE FOR GFR 1.87 MG/DL (0.70-1.30); GLOMERULAR FILTRATION RATE 36.4 (>35); POTASSIUM SERUM 4.1 MEQ/L (3.5-5.1); TOTAL PROTEIN 5.9 GM/DL (6.4-8.2)
[2021-12-09] MEDS: SENOKOT S TAB PO SCH ×2 (09:04→22:07)
[2021-12-09] MEDS: OMEPRAZOLE 20MG CAP PO SCH (09:04)
[2021-12-09] MEDS: TAMSULOSIN 0.4 MG CAP PO SCH ×2 (09:04→22:06)
[2021-12-09] MEDS: ENOXAPARIN 30MG/0.3ML SYRINGE (J1650 PER 10MG) SC SCH (09:05)
[2021-12-09] MEDS ORDERED: zolPIDEM TARTRATE 5 MG TAB PO PRN (18:35)
[2021-12-09] MEDS ORDERED: IPRATROPIUM 0.5MG/ALBUTEROL 2.5MG INH SOL UD 3ML (DUONEB) NEB ONE (20:45)
[2021-12-09] MEDS ORDERED: CALCIUM CARBONATE 500 MG CHEW U/D PO PRN (21:50)
[2021-12-09] MEDS ORDERED: ACETAMINOPHEN TAB 650MG DOSE (2X325MG) PO PRN (21:50)
[2021-12-10] VITALS (25 sets, daily range): BP systolic 117–147; BP diastolic 62–86; O2SAT 78–96
[2021-12-10] MEDS ORDERED: IPRATROPIUM 0.5MG/ALBUTEROL 2.5MG INH SOL UD 3ML (DUONEB) NEB SCH
[2021-12-10] MEDS ORDERED: guaiFENesin ER 600 MG TAB PO PRN (01:05)
[2021-12-10] MEDS: LEVALBUTEROL 1.25 MG/0.5 ML CONCENTRATE NEB INH SCH ×5 (03:15→19:35)
[2021-12-10] MEDS: IPRATROPIUM 0.02% SOLN 0.5MG 2.5ML NEB INH SCH ×5 (03:16→19:35)
[2021-12-10 03:56] LABS: HEMATOCRIT 36.2 % (42.0-52.0); HEMOGLOBIN 11.2 g/dl (13.5-17.5); MEAN CORPUSCULAR HEMOGLOBIN 28.5 pg (27.0-33.0); MEAN CORPUSCULAR HGB CONC 30.9 g/dl (32.0-36.5); MEAN CORPUSCULAR VOLUME 92.1 fl (80.0-96.0); PLATELET COUNT, AUTOMATED 158 10^3/uL (150-450); RED BLOOD COUNT 3.93 10^6/uL (4.30-6.10); WHITE BLOOD COUNT 10.1 10^3/uL (4.0-10.0)
[2021-12-10 04:28] LABS: RSV AMPLIFICATION NEGATIVE (NEGATIVE)
[2021-12-10 04:31] LABS: ALBUMIN 2.6 GM/DL (3.2-5.2); BILIRUBIN,TOTAL 0.5 MG/DL (0.2-1.0); CREATININE FOR GFR 1.77 MG/DL (0.70-1.30); GLOMERULAR FILTRATION RATE 38.8 (>35); POTASSIUM SERUM 3.6 MEQ/L (3.5-5.1); TOTAL PROTEIN 5.9 GM/DL (6.4-8.2)
[2021-12-10] MEDS: PIPERACILLIN/TAZOBACTAM SOD 2.25 GM in D5W MINI-BAG PLUS 50 ML IV SCH ×2 (05:56→11:12)
[2021-12-10] MEDS ORDERED: FUROSEMIDE 20MG/2ML VIAL (J1940) IV ONE ×2 (06:00→16:40)
[2021-12-10 07:43] LABS: HEMATOCRIT 38.6 % (42.0-52.0); HEMOGLOBIN 11.8 g/dl (13.5-17.5); MEAN CORPUSCULAR HEMOGLOBIN 28.2 pg (27.0-33.0); MEAN CORPUSCULAR HGB CONC 30.6 g/dl (32.0-36.5); MEAN CORPUSCULAR VOLUME 92.3 fl (80.0-96.0); PLATELET COUNT, AUTOMATED 163 10^3/uL (150-450); RED BLOOD COUNT 4.18 10^6/uL (4.30-6.10); WHITE BLOOD COUNT 7.9 10^3/uL (4.0-10.0)
[2021-12-10] MEDS ORDERED: SODIUM CHLORIDE 0.9% 3ML NEB SOLUTION FOR INHALATION INH SCH (08:00)
[2021-12-10 08:19] LABS: ALBUMIN 2.8 GM/DL (3.2-5.2); BILIRUBIN,TOTAL 0.7 MG/DL (0.2-1.0); CALCIUM LEVEL 8.2 MG/DL (8.8-10.2); CREATININE FOR GFR 1.67 MG/DL (0.70-1.30); GLOMERULAR FILTRATION RATE 41.4 (>35); POTASSIUM SERUM 3.9 MEQ/L (3.5-5.1); TOTAL PROTEIN 6.4 GM/DL (6.4-8.2)
[2021-12-10] MEDS ORDERED: VANCOMYCIN HCL 1,000 MG, VIAL MATE ADAPTER 1 EACH in NS 250 ML IV SCH (08:40)
[2021-12-10] MEDS ORDERED: FUROSEMIDE 40MG/4ML VIAL (J1940) IV ONE (09:30)
[2021-12-10] MEDS ORDERED: methylPREDNISolone 40MG 1ML VIAL IV ONE (09:30)
[2021-12-10] MEDS: ENOXAPARIN 30MG/0.3ML SYRINGE (J1650 PER 10MG) SC SCH (09:31)
[2021-12-10 09:52] LABS: ABG BASE EXCESS -2.3 (-2.0-2.0); ABG HCO3 21.3 MEQ/L (22.0-26.0); ABG O2 SATURATION 95.4 % (95.0-99.0); ABG PARTIAL PRESSURE CO2 32.9 mmHg (35.0-45.0); ABG PARTIAL PRESSURE O2 75.3 mmHg (75.0-100.0); ABG STANDARD HCO3 22.5 MEQ/L (22.0-26.0); ABG TOTAL CO2 22.3 MEQ/L (23.0-31.0); ABG pH (ARTERIAL) 7.429 UNITS (7.350-7.450)
[2021-12-10 10:09] LABS: BASO % 0.4 % (0.0-1.0); EOS % 0.1 % (0.0-3.0); LYMPH # 1.8 10^3/uL (1.5-5.0); LYMPH % 17.3 % (24.0-44.0); MONO # 0.5 10^3/uL (0.0-0.8); MONO % 4.8 % (2.0-8.0); NEUTROPHILS # 7.9 10^3/uL (1.5-8.5); NEUTROPHILS % 77.1 % (36.0-66.0)
[2021-12-10] MEDS: SODIUM CHLORIDE HYPERTONIC 3% 15ML NEB SOL INH SCH ×3 (11:21→19:34)
[2021-12-10] MEDS ORDERED: VANCOMYCIN HCL 1,000 MG, VIAL MATE ADAPTER 1 EACH in D5W 250 ML IV ONE (12:00)
[2021-12-10] MEDS: TAMSULOSIN 0.4 MG CAP PO SCH ×2 (14:35→21:00)
[2021-12-10] MEDS: SENOKOT S TAB PO SCH ×2 (14:35→21:00)
[2021-12-10] MEDS: OMEPRAZOLE 20MG CAP PO SCH (14:35)
[2021-12-10] MEDS ORDERED: LEVALBUTEROL 1.25 MG/0.5 ML CONCENTRATE NEB INH PRN (15:00)
[2021-12-10] MEDS: PIPERACILLIN/TAZOBACTAM SOD 3.375 GM in D5W MINI-BAG PLUS 50 ML IV SCH ×2 (17:05→23:22)
[2021-12-10] MEDS: CHLORHEXIDINE GLUCONATE 0.12 % 15ML UDC (PERIDEX ORAL RINSE) MT SCH (21:00)
[2021-12-10 23:18] LABS: ABG BASE EXCESS -2.8 (-2.0-2.0); ABG PARTIAL PRESSURE CO2 28.8 mmHg (35.0-45.0); ABG PARTIAL PRESSURE O2 68.3 mmHg (75.0-100.0); ABG STANDARD HCO3 22.1 MEQ/L (22.0-26.0); ABG TOTAL CO2 20.9 MEQ/L (23.0-31.0); ABG pH (ARTERIAL) 7.459 UNITS (7.350-7.450)
[2021-12-11] VITALS (31 sets, daily range): BP systolic 118–154; BP diastolic 56–85; O2SAT 83–97
[2021-12-11] MEDS: LEVALBUTEROL 1.25 MG/0.5 ML CONCENTRATE NEB INH SCH ×7 (00:26→23:35)
[2021-12-11] MEDS: IPRATROPIUM 0.02% SOLN 0.5MG 2.5ML NEB INH SCH ×7 (00:28→23:35)
[2021-12-11] MEDS: SODIUM CHLORIDE HYPERTONIC 3% 15ML NEB SOL INH SCH ×4 (04:00→11:40)
[2021-12-11] MEDS: PIPERACILLIN/TAZOBACTAM SOD 3.375 GM in D5W MINI-BAG PLUS 50 ML IV SCH ×4 (05:43→23:10)
[2021-12-11] MEDS ORDERED: VANCOMYCIN HCL 500 MG in D5W MINI-BAG PLUS 100 ML IV SCH (06:00)
[2021-12-11 06:50] LABS: HEMOGLOBIN 11.9 g/dl (13.5-17.5); MEAN CORPUSCULAR HGB CONC 31.3 g/dl (32.0-36.5); MEAN CORPUSCULAR VOLUME 89.4 fl (80.0-96.0); PLATELET COUNT, AUTOMATED 168 10^3/uL (150-450); RED BLOOD COUNT 4.25 10^6/uL (4.30-6.10); WHITE BLOOD COUNT 5.7 10^3/uL (4.0-10.0)
[2021-12-11 07:30] LABS: ALBUMIN 2.6 GM/DL (3.2-5.2); CALCIUM LEVEL 8.6 MG/DL (8.8-10.2); CREATININE FOR GFR 1.86 MG/DL (0.70-1.30); GLOMERULAR FILTRATION RATE 36.6 (>35); TOTAL PROTEIN 6.3 GM/DL (6.4-8.2)
[2021-12-11] MEDS: DOXYCYCLINE HYCLATE 100 MG in D5W MINI-BAG PLUS 100 ML IV SCH ×2 (08:50→20:17)
[2021-12-11] MEDS: ENOXAPARIN 30MG/0.3ML SYRINGE (J1650 PER 10MG) SC SCH (08:54)
[2021-12-11] MEDS: TAMSULOSIN 0.4 MG CAP PO SCH ×2 (09:00→20:18)
[2021-12-11] MEDS: OMEPRAZOLE 20MG CAP PO SCH (09:00)
[2021-12-11] MEDS ORDERED: FUROSEMIDE 40MG/4ML VIAL (J1940) IV SCH (09:00)
[2021-12-11] MEDS: SENOKOT S TAB PO SCH ×2 (09:00→20:18)
[2021-12-11] MEDS ORDERED: NS 500 ML IV ONE (09:15)
[2021-12-11] MEDS ORDERED: D5W 1,000 ML IV SCH (09:15)
[2021-12-11] MEDS: KCL 10MEQ/100ML SWI (KRUN) 10 MEQ in IV 1 EA IV SCH ×6 (10:19→16:20)
[2021-12-11] MEDS: CHLORHEXIDINE GLUCONATE 0.12 % 15ML UDC (PERIDEX ORAL RINSE) MT SCH ×2 (10:38→20:18)
[2021-12-11 11:56] LABS: ABG BASE EXCESS -3.1 (-2.0-2.0); ABG HCO3 19.4 MEQ/L (22.0-26.0); ABG O2 SATURATION 96.6 % (95.0-99.0); ABG PARTIAL PRESSURE CO2 27.3 mmHg (35.0-45.0); ABG PARTIAL PRESSURE O2 86.3 mmHg (75.0-100.0); ABG STANDARD HCO3 21.9 MEQ/L (22.0-26.0); ABG TOTAL CO2 20.3 MEQ/L (23.0-31.0)
[2021-12-11] MEDS: methylPREDNISolone 125MG 2ML VIAL IV SCH ×2 (12:34→23:10)
[2021-12-11] MEDS: ACETYLCYSTEINE 20% 4 ML VIAL (200MG/ML) INH SCH ×2 (14:00→19:41)
[2021-12-11] MEDS ORDERED: METOPROLOL 5 MG/5 ML VIAL IV STA (16:58)
[2021-12-11] MEDS ORDERED: PANTOPRAZOLE 40MG VIAL IV ONE (17:00)
[2021-12-11] MEDS ORDERED: METOPROLOL 5 MG/5 ML VIAL IV SCH (18:00)
[2021-12-11] MEDS ORDERED: FUROSEMIDE 20MG/2ML VIAL (J1940) IV ONE (20:00)
[2021-12-11] MEDS ORDERED: METOPROLOL TART 25 MG TABLET PO SCH (22:00)
[2021-12-12] VITALS (24 sets, daily range): BP systolic 129–166; BP diastolic 60–94; O2SAT 84–97
[2021-12-12] MEDS: LEVALBUTEROL 1.25 MG/0.5 ML CONCENTRATE NEB INH SCH ×6 (03:08→23:15)
[2021-12-12] MEDS: IPRATROPIUM 0.02% SOLN 0.5MG 2.5ML NEB INH SCH ×6 (03:08→23:14)
[2021-12-12] MEDS: PIPERACILLIN/TAZOBACTAM SOD 3.375 GM in D5W MINI-BAG PLUS 50 ML IV SCH ×4 (04:03→22:22)
[2021-12-12] MEDS ORDERED: METOPROLOL 5 MG/5 ML VIAL IV STA ×2 (05:32→21:55)
[2021-12-12] MEDS ORDERED: METOPROLOL TART 25 MG TABLET PO ONE (06:00)
[2021-12-12 06:09] LABS: HEMATOCRIT 33.8 % (42.0-52.0); HEMOGLOBIN 10.7 g/dl (13.5-17.5); MEAN CORPUSCULAR HEMOGLOBIN 28.5 pg (27.0-33.0); MEAN CORPUSCULAR HGB CONC 31.7 g/dl (32.0-36.5); MEAN CORPUSCULAR VOLUME 89.9 fl (80.0-96.0); PLATELET COUNT, AUTOMATED 144 10^3/uL (150-450); RED BLOOD COUNT 3.76 10^6/uL (4.30-6.10)
[2021-12-12 06:38] LABS: ALBUMIN 2.4 GM/DL (3.2-5.2); BILIRUBIN,TOTAL 0.7 MG/DL (0.2-1.0); CREATININE FOR GFR 1.88 MG/DL (0.70-1.30); GLOMERULAR FILTRATION RATE 36.1 (>35); MAGNESIUM LEVEL 2.7 MG/DL (1.8-2.4); PHOSPHORUS LEVEL 3.1 MG/DL (2.5-4.9); POTASSIUM SERUM 3.4 MEQ/L (3.5-5.1); TOTAL PROTEIN 6.3 GM/DL (6.4-8.2)
[2021-12-12] MEDS: ACETYLCYSTEINE 20% 4 ML VIAL (200MG/ML) INH SCH ×2 (07:14→20:00)
[2021-12-12] MEDS: KCL 10MEQ/100ML SWI (KRUN) 10 MEQ in IV 1 EA IV SCH ×4 (08:43→13:19)
[2021-12-12] MEDS: PANTOPRAZOLE 40MG VIAL IV SCH (08:43)
[2021-12-12] MEDS: ENOXAPARIN 30MG/0.3ML SYRINGE (J1650 PER 10MG) SC SCH (08:43)
[2021-12-12] MEDS: METOPROLOL 5 MG/5 ML VIAL IV SCH ×2 (08:44→13:19)
[2021-12-12] MEDS: DOXYCYCLINE HYCLATE 100 MG in D5W MINI-BAG PLUS 100 ML IV SCH ×2 (08:44→20:34)
[2021-12-12] MEDS: TAMSULOSIN 0.4 MG CAP PO SCH ×2 (09:00→21:01)
[2021-12-12] MEDS: OMEPRAZOLE 20MG CAP PO SCH (09:00)
[2021-12-12] MEDS: SENOKOT S TAB PO SCH ×2 (09:00→21:01)
[2021-12-12] MEDS: MICAFUNGIN SODIUM 100 MG in D5W MINI-BAG PLUS 100 ML IV SCH (09:56)
[2021-12-12] MEDS: CHLORHEXIDINE GLUCONATE 0.12 % 15ML UDC (PERIDEX ORAL RINSE) MT SCH ×2 (10:02→23:47)
[2021-12-12] MEDS ORDERED: VARIBAR PUDDING 40% w/v 230ML TUBE As Ordered ONE (11:51)
[2021-12-12] MEDS ORDERED: VARIBAR NECTAR 40% w/v 240ML SUSP BTL As Ordered ONE (11:51)
[2021-12-12] MEDS ORDERED: E-Z-PAQUE 96% w/w SUSP 176GM BTL As Ordered ONE (11:51)
[2021-12-12] MEDS ORDERED: BARIUM SULFATE 700 MG TABLET (E-Z-DISK) As Ordered ONE (11:52)
[2021-12-12] MEDS: methylPREDNISolone 40MG 1ML VIAL IV SCH (13:18)
[2021-12-12] MEDS: APIXABAN 5 MG TAB (ELIQUIS) PO SCH ×2 (13:19→21:01)
[2021-12-12 13:55] LABS: INR 1.26; PROTHROMBIN TIME 16.2 SECONDS (12.7-14.5)
[2021-12-12 13:56] LABS: PARTIAL THROMBOPLASTIN TIME 50.1 SECONDS (25.9-37.0)
[2021-12-12] MEDS: METOPROLOL TART 25 MG TABLET PO SCH (21:01)
[2021-12-12] MEDS ORDERED: POTASSIUM CHLORIDE 10% LIQ 20 MEQ/15 ML UDC PO ONE (23:05)
[2021-12-13] VITALS (15 sets, daily range): BP systolic 144–166; BP diastolic 82–91; O2SAT 93–99
[2021-12-13] MEDS: LEVALBUTEROL 1.25 MG/0.5 ML CONCENTRATE NEB INH SCH ×6 (03:21→23:06)
[2021-12-13] MEDS: IPRATROPIUM 0.02% SOLN 0.5MG 2.5ML NEB INH SCH ×6 (03:21→23:05)
[2021-12-13] MEDS: PIPERACILLIN/TAZOBACTAM SOD 3.375 GM in D5W MINI-BAG PLUS 50 ML IV SCH ×4 (05:16→22:52)
[2021-12-13] MEDS: METOPROLOL TART 25 MG TABLET PO SCH (05:16)
[2021-12-13 06:08] LABS: HEMATOCRIT 35.9 % (42.0-52.0); HEMOGLOBIN 11.2 g/dl (13.5-17.5); MEAN CORPUSCULAR HEMOGLOBIN 27.9 pg (27.0-33.0); MEAN CORPUSCULAR HGB CONC 31.2 g/dl (32.0-36.5); MEAN CORPUSCULAR VOLUME 89.3 fl (80.0-96.0); PLATELET COUNT, AUTOMATED 154 10^3/uL (150-450); RED BLOOD COUNT 4.02 10^6/uL (4.30-6.10); WHITE BLOOD COUNT 8.6 10^3/uL (4.0-10.0)
[2021-12-13 06:38] LABS: CALCIUM LEVEL 9.2 MG/DL (8.8-10.2); CREATININE FOR GFR 1.59 MG/DL (0.70-1.30); GLOMERULAR FILTRATION RATE 43.9 (>35); PHOSPHORUS LEVEL 2.7 MG/DL (2.5-4.9); POTASSIUM SERUM 3.9 MEQ/L (3.5-5.1)
[2021-12-13 06:39] LABS: ALBUMIN 2.1 GM/DL (3.2-5.2); BILIRUBIN,TOTAL 0.5 MG/DL (0.2-1.0); MAGNESIUM LEVEL 2.5 MG/DL (1.8-2.4)
[2021-12-13] MEDS: ACETYLCYSTEINE 20% 4 ML VIAL (200MG/ML) INH SCH ×3 (07:18→23:05)
[2021-12-13] MEDS: DOXYCYCLINE HYCLATE 100 MG in D5W MINI-BAG PLUS 100 ML IV SCH ×2 (08:18→19:58)
[2021-12-13] MEDS: MICAFUNGIN SODIUM 100 MG in D5W MINI-BAG PLUS 100 ML IV SCH (09:44)
[2021-12-13] MEDS: PANTOPRAZOLE 40MG VIAL IV SCH (09:44)
[2021-12-13] MEDS: TAMSULOSIN 0.4 MG CAP PO SCH ×2 (09:44→21:31)
[2021-12-13] MEDS: CHLORHEXIDINE GLUCONATE 0.12 % 15ML UDC (PERIDEX ORAL RINSE) MT SCH ×2 (09:44→21:37)
[2021-12-13] MEDS: SENOKOT S TAB PO SCH ×2 (09:44→21:32)
[2021-12-13] MEDS: APIXABAN 5 MG TAB (ELIQUIS) PO SCH ×2 (09:45→21:32)
[2021-12-13] MEDS ORDERED: FUROSEMIDE 20MG/2ML VIAL (J1940) IV ONE ×2 (10:15→14:25)
[2021-12-13] MEDS ORDERED: BISACODYL 10 MG SUPP PR ONE (12:00)
[2021-12-13] MEDS: methylPREDNISolone 40MG 1ML VIAL IV SCH (12:29)
[2021-12-13] MEDS: METOPROLOL TART 50 MG TAB PO SCH ×2 (14:20→21:31)
[2021-12-13] MEDS: SYMBICORT 160/4.5MCG INHALER 6GM INH SCH (20:32)
[2021-12-13] MEDS: ROSUVASTATIN 10 MG TAB (CRESTOR) PO SCH (21:31)
[2021-12-14] VITALS (15 sets, daily range): BP systolic 132–158; BP diastolic 70–85; O2SAT 84–97
[2021-12-14 03:55] LABS: HEMATOCRIT 32.7 % (42.0-52.0); HEMOGLOBIN 10.6 g/dl (13.5-17.5); MEAN CORPUSCULAR HEMOGLOBIN 28.2 pg (27.0-33.0); MEAN CORPUSCULAR HGB CONC 32.4 g/dl (32.0-36.5); PLATELET COUNT, AUTOMATED 151 10^3/uL (150-450); RED BLOOD COUNT 3.76 10^6/uL (4.30-6.10); WHITE BLOOD COUNT 13.1 10^3/uL (4.0-10.0)
[2021-12-14] MEDS: IPRATROPIUM 0.02% SOLN 0.5MG 2.5ML NEB INH SCH ×6 (04:24→23:37)
[2021-12-14] MEDS: LEVALBUTEROL 1.25 MG/0.5 ML CONCENTRATE NEB INH SCH ×6 (04:24→23:37)
[2021-12-14 04:37] LABS: CALCIUM LEVEL 9.4 MG/DL (8.8-10.2); CREATININE FOR GFR 1.61 MG/DL (0.70-1.30); GLOMERULAR FILTRATION RATE 43.2 (>35); PHOSPHORUS LEVEL 2.1 MG/DL (2.5-4.9); POTASSIUM SERUM 3.5 MEQ/L (3.5-5.1)
[2021-12-14 04:38] LABS: ALBUMIN 2.1 GM/DL (3.2-5.2); BILIRUBIN,TOTAL 0.5 MG/DL (0.2-1.0); MAGNESIUM LEVEL 2.2 MG/DL (1.8-2.4); TOTAL PROTEIN 5.8 GM/DL (6.4-8.2)
[2021-12-14] MEDS: METOPROLOL TART 50 MG TAB PO SCH ×3 (05:44→22:00)
[2021-12-14] MEDS: PIPERACILLIN/TAZOBACTAM SOD 3.375 GM in D5W MINI-BAG PLUS 50 ML IV SCH ×3 (05:44→17:39)
[2021-12-14] MEDS: SYMBICORT 160/4.5MCG INHALER 6GM INH SCH ×2 (07:07→19:42)
[2021-12-14] MEDS: ACETYLCYSTEINE 20% 4 ML VIAL (200MG/ML) INH SCH ×2 (07:18→19:41)
[2021-12-14] MEDS: DOXYCYCLINE HYCLATE 100 MG in D5W MINI-BAG PLUS 100 ML IV SCH ×2 (08:08→20:09)
[2021-12-14] MEDS: TAMSULOSIN 0.4 MG CAP PO SCH ×2 (09:03→22:01)
[2021-12-14] MEDS: APIXABAN 5 MG TAB (ELIQUIS) PO SCH ×2 (09:03→21:00)
[2021-12-14] MEDS: SENOKOT S TAB PO SCH ×2 (09:03→21:00)
[2021-12-14] MEDS: CHLORHEXIDINE GLUCONATE 0.12 % 15ML UDC (PERIDEX ORAL RINSE) MT SCH ×2 (09:03→22:01)
[2021-12-14] MEDS: PANTOPRAZOLE 40MG VIAL IV SCH (10:15)
[2021-12-14] MEDS: MICAFUNGIN SODIUM 100 MG in D5W MINI-BAG PLUS 100 ML IV SCH (11:17)
[2021-12-14] MEDS ORDERED: POTASSIUM PHOSPHATE INJ 20 MMOL in D5W 250 ML IV ONE (12:00)
[2021-12-14] MEDS: methylPREDNISolone 40MG 1ML VIAL IV SCH (13:20)
[2021-12-14] MEDS: ROSUVASTATIN 10 MG TAB (CRESTOR) PO SCH (22:00)
[2021-12-15] VITALS (24 sets, daily range): BP systolic 110–140; BP diastolic 56–73; O2SAT 83–99
[2021-12-15] MEDS: methylPREDNISolone 40MG 1ML VIAL IV SCH ×2 (00:08→12:40)
[2021-12-15] MEDS: PIPERACILLIN/TAZOBACTAM SOD 3.375 GM in D5W MINI-BAG PLUS 50 ML IV SCH ×5 (00:09→22:42)
[2021-12-15] MEDS: LEVALBUTEROL 1.25 MG/0.5 ML CONCENTRATE NEB INH SCH ×6 (04:02→22:59)
[2021-12-15] MEDS: IPRATROPIUM 0.02% SOLN 0.5MG 2.5ML NEB INH SCH ×6 (04:02→22:59)
[2021-12-15] MEDS: METOPROLOL TART 50 MG TAB PO SCH ×3 (05:08→22:43)
[2021-12-15 06:21] LABS: BASO % 0.2 % (0.0-1.0); HEMATOCRIT 30.2 % (42.0-52.0); HEMOGLOBIN 9.6 g/dl (13.5-17.5); LYMPH # 1.1 10^3/uL (1.5-5.0); LYMPH % 8.3 % (24.0-44.0); MEAN CORPUSCULAR HEMOGLOBIN 27.6 pg (27.0-33.0); MEAN CORPUSCULAR HGB CONC 31.8 g/dl (32.0-36.5); MEAN CORPUSCULAR VOLUME 86.8 fl (80.0-96.0); MONO # 0.6 10^3/uL (0.0-0.8); MONO % 4.2 % (2.0-8.0); NEUTROPHILS # 11.5 10^3/uL (1.5-8.5); NEUTROPHILS % 85.9 % (36.0-66.0); PLATELET COUNT, AUTOMATED 138 10^3/uL (150-450); RED BLOOD COUNT 3.48 10^6/uL (4.30-6.10); WHITE BLOOD COUNT 13.4 10^3/uL (4.0-10.0)
[2021-12-15 06:59] LABS: ALBUMIN 1.8 GM/DL (3.2-5.2); BILIRUBIN,TOTAL 0.4 MG/DL (0.2-1.0); CALCIUM LEVEL 8.5 MG/DL (8.8-10.2); CREATININE FOR GFR 1.51 MG/DL (0.70-1.30); GLOMERULAR FILTRATION RATE 46.6 (>35); MAGNESIUM LEVEL 1.8 MG/DL (1.8-2.4); PHOSPHORUS LEVEL 3.7 MG/DL (2.5-4.9); POTASSIUM SERUM 3.4 MEQ/L (3.5-5.1); TOTAL PROTEIN 5.6 GM/DL (6.4-8.2)
[2021-12-15] MEDS: SYMBICORT 160/4.5MCG INHALER 6GM INH SCH ×2 (07:17→20:04)
[2021-12-15] MEDS: ACETYLCYSTEINE 20% 4 ML VIAL (200MG/ML) INH SCH ×2 (07:17→20:00)
[2021-12-15] MEDS: DOXYCYCLINE HYCLATE 100 MG in D5W MINI-BAG PLUS 100 ML IV SCH (07:42)
[2021-12-15] MEDS: SENOKOT S TAB PO SCH (09:00)
[2021-12-15] MEDS: APIXABAN 5 MG TAB (ELIQUIS) PO SCH ×2 (09:00→20:38)
[2021-12-15] MEDS: PANTOPRAZOLE 40MG TAB (PROTONIX) PO SCH (09:03)
[2021-12-15] MEDS: TAMSULOSIN 0.4 MG CAP PO SCH ×2 (09:03→20:38)
[2021-12-15] MEDS: CHLORHEXIDINE GLUCONATE 0.12 % 15ML UDC (PERIDEX ORAL RINSE) MT SCH ×2 (09:03→21:03)
[2021-12-15] MEDS: MICAFUNGIN SODIUM 100 MG in D5W MINI-BAG PLUS 100 ML IV SCH (09:12)
[2021-12-15] MEDS ORDERED: POTASSIUM CHLORIDE 10MEQ SR TABLET PO ONE (10:00)
[2021-12-15] MEDS ORDERED: POTASSIUM CHL PWD 20 MEQ PACKET PO ONE (11:00)
[2021-12-15] MEDS: ROSUVASTATIN 10 MG TAB (CRESTOR) PO SCH (20:38)
[2021-12-15] MEDS ORDERED: guaiFENesin SYRUP 200MG 10ML UDC PO PRN (20:45)
[2021-12-15] MEDS ORDERED: guaiFENesin ER 600 MG TAB PO SCH (21:00)
[2021-12-16] VITALS (19 sets, daily range): BP systolic 116–144; BP diastolic 57–72; O2SAT 89–96
[2021-12-16] MEDS: methylPREDNISolone 40MG 1ML VIAL IV SCH ×3 (00:25→23:49)
[2021-12-16] MEDS: LEVALBUTEROL 1.25 MG/0.5 ML CONCENTRATE NEB INH SCH ×5 (03:14→19:32)
[2021-12-16] MEDS: IPRATROPIUM 0.02% SOLN 0.5MG 2.5ML NEB INH SCH ×5 (03:14→19:32)
[2021-12-16] MEDS: PIPERACILLIN/TAZOBACTAM SOD 3.375 GM in D5W MINI-BAG PLUS 50 ML IV SCH ×4 (04:26→23:49)
[2021-12-16] MEDS: GASTROGRAFIN SOLUTION 30ML PO SCH ×2 (06:10→06:38)
[2021-12-16] MEDS: METOPROLOL TART 50 MG TAB PO SCH ×3 (06:12→21:58)
[2021-12-16 06:14] LABS: BASO % 0.2 % (0.0-1.0); HEMATOCRIT 26.7 % (42.0-52.0); HEMOGLOBIN 8.6 g/dl (13.5-17.5); LYMPH # 1.3 10^3/uL (1.5-5.0); LYMPH % 8.1 % (24.0-44.0); MEAN CORPUSCULAR HEMOGLOBIN 27.6 pg (27.0-33.0); MEAN CORPUSCULAR HGB CONC 32.2 g/dl (32.0-36.5); MEAN CORPUSCULAR VOLUME 85.6 fl (80.0-96.0); MONO # 0.7 10^3/uL (0.0-0.8); MONO % 4.3 % (2.0-8.0); NEUTROPHILS # 13.8 10^3/uL (1.5-8.5); NEUTROPHILS % 84.5 % (36.0-66.0); PLATELET COUNT, AUTOMATED 167 10^3/uL (150-450); RED BLOOD COUNT 3.12 10^6/uL (4.30-6.10); WHITE BLOOD COUNT 16.3 10^3/uL (4.0-10.0)
[2021-12-16 06:55] LABS: CALCIUM LEVEL 8.5 MG/DL (8.8-10.2); CREATININE FOR GFR 1.4 MG/DL (0.70-1.30); GLOMERULAR FILTRATION RATE 50.8 (>35); MAGNESIUM LEVEL 1.9 MG/DL (1.8-2.4); PHOSPHORUS LEVEL 4.2 MG/DL (2.5-4.9); POTASSIUM SERUM 3.6 MEQ/L (3.5-5.1)
[2021-12-16] MEDS ORDERED: NS 1,000 ML IV ONE (07:25)
[2021-12-16] MEDS: ACETYLCYSTEINE 20% 4 ML VIAL (200MG/ML) INH SCH ×2 (08:00→19:32)
[2021-12-16] MEDS: SYMBICORT 160/4.5MCG INHALER 6GM INH SCH ×2 (08:00→19:33)
[2021-12-16] MEDS: MICAFUNGIN SODIUM 100 MG in D5W MINI-BAG PLUS 100 ML IV SCH (08:00)
[2021-12-16] MEDS: APIXABAN 5 MG TAB (ELIQUIS) PO SCH (08:00)
[2021-12-16] MEDS: PANTOPRAZOLE 40MG TAB (PROTONIX) PO SCH (08:00)
[2021-12-16] MEDS: TAMSULOSIN 0.4 MG CAP PO SCH ×2 (08:00→21:56)
[2021-12-16] MEDS: CHLORHEXIDINE GLUCONATE 0.12 % 15ML UDC (PERIDEX ORAL RINSE) MT SCH ×2 (08:08→21:56)
[2021-12-16] MEDS ORDERED: ISOVUE-370 76% 100ML VIAL As Ordered ONE (14:22)
[2021-12-16 15:08] LABS: BODY FLUID CULTURE Not indicated. (.); LEGIONELLA ANTIGEN URINE Negative (Negative); ORGANISM ID Not indicated. (.); SPECIMEN SOURCE Urine (.); URINE STREP PNEUMONIAE ANTIGEN Negative (Negative)
[2021-12-16 20:32] LABS: HEMATOCRIT 24.9 % (42.0-52.0); MEAN CORPUSCULAR HEMOGLOBIN 28.4 pg (27.0-33.0); MEAN CORPUSCULAR HGB CONC 32.1 g/dl (32.0-36.5); MEAN CORPUSCULAR VOLUME 88.3 fl (80.0-96.0); PLATELET COUNT, AUTOMATED 173 10^3/uL (150-450); RED BLOOD COUNT 2.82 10^6/uL (4.30-6.10); WHITE BLOOD COUNT 14.2 10^3/uL (4.0-10.0)
[2021-12-16] MEDS: PANTOPRAZOLE 40MG VIAL IV SCH (21:55)
[2021-12-16] MEDS: ROSUVASTATIN 10 MG TAB (CRESTOR) PO SCH (21:56)
[2021-12-17] VITALS (13 sets, daily range): BP systolic 125–146; BP diastolic 59–72; O2SAT 86–98
[2021-12-17] MEDS: LEVALBUTEROL 1.25 MG/0.5 ML CONCENTRATE NEB INH SCH ×6 (00:55→19:30)
[2021-12-17] MEDS: IPRATROPIUM 0.02% SOLN 0.5MG 2.5ML NEB INH SCH ×6 (00:55→19:30)
[2021-12-17 05:23] LABS: BASO % 0.2 % (0.0-1.0); HEMATOCRIT 24.8 % (42.0-52.0); HEMOGLOBIN 7.8 g/dl (13.5-17.5); LYMPH # 1.4 10^3/uL (1.5-5.0); LYMPH % 9.7 % (24.0-44.0); MEAN CORPUSCULAR HEMOGLOBIN 27.5 pg (27.0-33.0); MEAN CORPUSCULAR HGB CONC 31.5 g/dl (32.0-36.5); MEAN CORPUSCULAR VOLUME 87.3 fl (80.0-96.0); MONO # 0.7 10^3/uL (0.0-0.8); MONO % 4.6 % (2.0-8.0); NEUTROPHILS # 11.7 10^3/uL (1.5-8.5); NEUTROPHILS % 82.3 % (36.0-66.0); PLATELET COUNT, AUTOMATED 196 10^3/uL (150-450); RED BLOOD COUNT 2.84 10^6/uL (4.30-6.10); WHITE BLOOD COUNT 14.2 10^3/uL (4.0-10.0)
[2021-12-17] MEDS: METOPROLOL TART 50 MG TAB PO SCH ×3 (05:24→21:44)
[2021-12-17 05:57] LABS: CALCIUM LEVEL 8.2 MG/DL (8.8-10.2); CREATININE FOR GFR 1.28 MG/DL (0.70-1.30); GLOMERULAR FILTRATION RATE 56.3 (>35); POTASSIUM SERUM 3.6 MEQ/L (3.5-5.1)
[2021-12-17] MEDS: SYMBICORT 160/4.5MCG INHALER 6GM INH SCH ×2 (07:34→19:30)
[2021-12-17] MEDS: ACETYLCYSTEINE 20% 4 ML VIAL (200MG/ML) INH SCH ×2 (07:34→19:30)
[2021-12-17] MEDS: PANTOPRAZOLE 40MG VIAL IV SCH ×2 (09:37→21:42)
[2021-12-17] MEDS: TAMSULOSIN 0.4 MG CAP PO SCH ×2 (09:37→21:41)
[2021-12-17] MEDS: MICAFUNGIN SODIUM 100 MG in D5W MINI-BAG PLUS 100 ML IV SCH (09:37)
[2021-12-17] MEDS: CHLORHEXIDINE GLUCONATE 0.12 % 15ML UDC (PERIDEX ORAL RINSE) MT SCH ×2 (09:37→21:41)
[2021-12-17] MEDS: methylPREDNISolone 40MG 1ML VIAL IV SCH (12:51)
[2021-12-17] MEDS ORDERED: TROPICAMIDE 0.5% OPHTH SOLN 15 ML OU ONE (14:00)
[2021-12-17] MEDS ORDERED: PHENYLEPHRINE 2.5% OPHTH SOL 2ML OU ONE (14:00)
[2021-12-17] MEDS ORDERED: CYCLOPENTOLATE 1% OPHTH SOLN 2 ML BTL OU ONE (14:00)
[2021-12-17 18:10] LABS: BASO # 0.1 10^3/uL (0.0-0.2); BASO % 0.3 % (0.0-1.0); EOS % 0.1 % (0.0-3.0); HEMATOCRIT 29.1 % (42.0-52.0); HEMOGLOBIN 9.1 g/dl (13.5-17.5); LYMPH % 10.6 % (24.0-44.0); MEAN CORPUSCULAR HEMOGLOBIN 28.5 pg (27.0-33.0); MEAN CORPUSCULAR HGB CONC 31.3 g/dl (32.0-36.5); MEAN CORPUSCULAR VOLUME 91.2 fl (80.0-96.0); MONO # 1.4 10^3/uL (0.0-0.8); MONO % 7.1 % (2.0-8.0); NEUTROPHILS # 15.1 10^3/uL (1.5-8.5); NEUTROPHILS % 78.8 % (36.0-66.0); PLATELET COUNT, AUTOMATED 214 10^3/uL (150-450); RED BLOOD COUNT 3.19 10^6/uL (4.30-6.10); WHITE BLOOD COUNT 19.1 10^3/uL (4.0-10.0)
[2021-12-17] MEDS: ROSUVASTATIN 10 MG TAB (CRESTOR) PO SCH (21:41)
[2021-12-18 00:06] VITALS: BP 141/65
[2021-12-18] MEDS: LEVALBUTEROL 1.25 MG/0.5 ML CONCENTRATE NEB INH SCH ×7 (00:14→23:10)
[2021-12-18] MEDS: IPRATROPIUM 0.02% SOLN 0.5MG 2.5ML NEB INH SCH ×7 (00:14→23:10)
[2021-12-18] MEDS: methylPREDNISolone 40MG 1ML VIAL IV SCH ×2 (00:55→13:11)
[2021-12-18 04:13] LABS: BASO % 0.2 % (0.0-1.0); HEMATOCRIT 24.4 % (42.0-52.0); HEMOGLOBIN 7.8 g/dl (13.5-17.5); LYMPH # 1.1 10^3/uL (1.5-5.0); LYMPH % 8.2 % (24.0-44.0); MEAN CORPUSCULAR HEMOGLOBIN 28.4 pg (27.0-33.0); MEAN CORPUSCULAR VOLUME 88.7 fl (80.0-96.0); MONO # 0.5 10^3/uL (0.0-0.8); MONO % 3.8 % (2.0-8.0); NEUTROPHILS % 83.3 % (36.0-66.0); PLATELET COUNT, AUTOMATED 229 10^3/uL (150-450); RED BLOOD COUNT 2.75 10^6/uL (4.30-6.10); WHITE BLOOD COUNT 13.2 10^3/uL (4.0-10.0)
[2021-12-18 04:19] VITALS: BP 136/60
[2021-12-18 04:42] LABS: CREATININE FOR GFR 1.23 MG/DL (0.70-1.30)
[2021-12-18] MEDS: METOPROLOL TART 50 MG TAB PO SCH ×3 (05:50→21:21)
[2021-12-18 08:00] VITALS: BP 146/75
[2021-12-18] MEDS: SYMBICORT 160/4.5MCG INHALER 6GM INH SCH ×2 (08:00→19:19)
[2021-12-18] MEDS: ACETYLCYSTEINE 20% 4 ML VIAL (200MG/ML) INH SCH ×2 (08:00→19:19)
[2021-12-18] MEDS: TAMSULOSIN 0.4 MG CAP PO SCH ×2 (10:28→20:06)
[2021-12-18] MEDS: BENZONATATE 100MG CAPSULE PO SCH ×2 (10:28→20:06)
[2021-12-18] MEDS: MICAFUNGIN SODIUM 100 MG in D5W MINI-BAG PLUS 100 ML IV SCH (10:29)
[2021-12-18] MEDS: PANTOPRAZOLE 40MG VIAL IV SCH ×2 (10:29→20:06)
[2021-12-18] MEDS: CHLORHEXIDINE GLUCONATE 0.12 % 15ML UDC (PERIDEX ORAL RINSE) MT SCH ×2 (10:41→20:08)
[2021-12-18 12:00] VITALS: BP 145/64
[2021-12-18] MEDS: guaiFENesin SYRUP 200MG 10ML UDC PO PRN (13:10)
[2021-12-18 16:00] VITALS: BP 152/84
[2021-12-18 17:03] LABS: BASO # 0.1 10^3/uL (0.0-0.2); BASO % 0.2 % (0.0-1.0); HEMATOCRIT 25.2 % (42.0-52.0); HEMOGLOBIN 8.1 g/dl (13.5-17.5); LYMPH # 1.2 10^3/uL (1.5-5.0); LYMPH % 5.7 % (24.0-44.0); MEAN CORPUSCULAR HEMOGLOBIN 28.6 pg (27.0-33.0); MEAN CORPUSCULAR HGB CONC 32.1 g/dl (32.0-36.5); MONO # 0.8 10^3/uL (0.0-0.8); MONO % 3.9 % (2.0-8.0); NEUTROPHILS # 17.5 10^3/uL (1.5-8.5); NEUTROPHILS % 85.5 % (36.0-66.0); PLATELET COUNT, AUTOMATED 249 10^3/uL (150-450); RED BLOOD COUNT 2.83 10^6/uL (4.30-6.10); WHITE BLOOD COUNT 20.4 10^3/uL (4.0-10.0)
[2021-12-18 20:00] VITALS: BP 135/62
[2021-12-18] MEDS: ROSUVASTATIN 10 MG TAB (CRESTOR) PO SCH (20:06)
[2021-12-19] VITALS: BP 147/63
[2021-12-19] MEDS: LEVALBUTEROL 1.25 MG/0.5 ML CONCENTRATE NEB INH SCH ×3 (03:15→11:20)
[2021-12-19] MEDS: IPRATROPIUM 0.02% SOLN 0.5MG 2.5ML NEB INH SCH ×3 (03:15→11:21)
[2021-12-19 04:00] VITALS: BP 137/62
[2021-12-19] MEDS: METOPROLOL TART 50 MG TAB PO SCH ×2 (05:07→14:06)
[2021-12-19 06:00] LABS: HEMOGLOBIN 7.8 g/dl (13.5-17.5); MEAN CORPUSCULAR HEMOGLOBIN 28.9 pg (27.0-33.0); MEAN CORPUSCULAR HGB CONC 32.5 g/dl (32.0-36.5); MEAN CORPUSCULAR VOLUME 88.9 fl (80.0-96.0); PLATELET COUNT, AUTOMATED 264 10^3/uL (150-450); WHITE BLOOD COUNT 13.8 10^3/uL (4.0-10.0)
[2021-12-19 06:20] LABS: BLOOD UREA NITROGEN 33 MG/DL (7-18); CALCIUM LEVEL 8.5 MG/DL (8.8-10.2); CARBON DIOXIDE LEVEL 22 MEQ/L (21-32); CHLORIDE LEVEL 113 MEQ/L (98-107); GLOMERULAR FILTRATION RATE > 60.0 (>35); GLUCOSE, FASTING 109 MG/DL (70-100); POTASSIUM SERUM 3.3 MEQ/L (3.5-5.1); SODIUM LEVEL 144 MEQ/L (136-145)
[2021-12-19 06:42] LABS: EOSINOPHILS 1 % (0-3); LYMPHOCYTES 18 % (16-44); MONOCYTES 3 % (0-5); NEUTROPHILS 74 % (28-66); PLATELET CLUMPS SMALL AMT; PLATELET ESTIMATE NORMAL (NORMAL)
[2021-12-19 06:43] LABS: HYPOCHROMASIA 2+; OVALOCYTES 1+
[2021-12-19 06:44] LABS: ANISOCYTOSIS 1+; POLYCHROMASIA 1+
[2021-12-19] MEDS ORDERED: POTASSIUM CHLORIDE 10MEQ SR TABLET PO ONE (07:00)
[2021-12-19] MEDS: ACETYLCYSTEINE 20% 4 ML VIAL (200MG/ML) INH SCH (07:16)
[2021-12-19] MEDS: SYMBICORT 160/4.5MCG INHALER 6GM INH SCH (07:16)
[2021-12-19 07:45] VITALS: BP 136/60
[2021-12-19] MEDS: BENZONATATE 100MG CAPSULE PO SCH (08:28)
[2021-12-19] MEDS: TAMSULOSIN 0.4 MG CAP PO SCH (08:28)
[2021-12-19] MEDS: MICAFUNGIN SODIUM 100 MG in D5W MINI-BAG PLUS 100 ML IV SCH (08:30)
[2021-12-19] MEDS: PANTOPRAZOLE 40MG VIAL IV SCH (08:30)
[2021-12-19] MEDS: CHLORHEXIDINE GLUCONATE 0.12 % 15ML UDC (PERIDEX ORAL RINSE) MT SCH (08:41)
[2021-12-19] MEDS: guaiFENesin SYRUP 200MG 10ML UDC PO PRN (08:41)
[2021-12-19] MEDS ORDERED: methylPREDNISolone 40MG 1ML VIAL IV ONE (09:00)
[2021-12-19] MEDS ORDERED: ACET20%4ML INH (12:19)
[2021-12-19] MEDS ORDERED: CARA1TAB6 PO (12:19)
[2021-12-19] MEDS ORDERED: LEVA12INH INH (12:19)
[2021-12-19] MEDS ORDERED: SYMB16INH INH (12:19)
[2021-12-19] MEDS ORDERED: LOPR1TAB6 PO (12:19)
[2021-12-19] MEDS ORDERED: IPRA2IN INH (12:19)
[2021-12-19] MEDS ORDERED: CRES10TA PO (12:19)
[2021-12-19] MEDS ORDERED: GUAI100S51 PO (12:19)
[2021-12-19] MEDS ORDERED: BENZ-18 PO (12:19)
[2021-12-19] MEDS ORDERED: PRED10PA PO (13:38)
[2021-12-19 13:40] VITALS: BP 129/61
[2021-12-19 14:06] VITALS: BP 129/61
[2021-12-20] MEDS ORDERED: VORICONAZOLE 200MG TABLET (VFEND) PO SCH (06:00)
[2021-12-22] MEDS ORDERED: VORICONAZOLE 200MG TABLET (VFEND) PO SCH (09:00)
== END 2021-12-19 14:37 | DRG 344 ==
LOC: M OR 07:02 → M MSPAV 15:44 → M PCU 12-10 09:09
PROVIDERS: ADMIT Surgery; ATTEND Surgery
PROC: 0DSN4ZZ Reposition Sigmoid Colon, Percutaneous Endoscopic Approach (ICD-10-PCS; principal; 2021-12-09)
PROC: 8E0W8CZ Robotic Assisted Procedure of Trunk Region, Via Natural or Artificial Opening Endoscopic (ICD-10-PCS; 2021-12-09)
PROC: B246ZZZ Ultrasonography of Right and Left Heart (ICD-10-PCS; 2021-12-11)
DX: Z43.3 Encounter for attention to colostomy (principal); J96.01 Acute respiratory failure with hypoxia; J69.0 Pneumonitis due to inhalation of food and vomit; C78.00 Secondary malignant neoplasm of unspecified lung; J44.0 Chronic obstructive pulmonary disease with (acute) lower respiratory infection; J44.1 Chronic obstructive pulmonary disease with (acute) exacerbation; N17.9 Acute kidney failure, unspecified; E87.2 Acidosis; I47.1 Supraventricular tachycardia; K56.7 Ileus, unspecified; I24.8 Other forms of acute ischemic heart disease; B49 Unspecified mycosis; D68.32 Hemorrhagic disorder due to extrinsic circulating anticoagulants; D62 Acute posthemorrhagic anemia; K92.2 Gastrointestinal hemorrhage, unspecified; I48.91 Unspecified atrial fibrillation; I10 Essential (primary) hypertension; N40.0 Benign prostatic hyperplasia without lower urinary tract symptoms; Z66 Do not resuscitate; Z90.49 Acquired absence of other specified parts of digestive tract; K21.9 Gastro-esophageal reflux disease without esophagitis; J84.10 Pulmonary fibrosis, unspecified; K44.9 Diaphragmatic hernia without obstruction or gangrene; Z85.828 Personal history of other malignant neoplasm of skin; Z85.118 Personal history of other malignant neoplasm of bronchus and lung; Z92.21 Personal history of antineoplastic chemotherapy; B37.9 Candidiasis, unspecified